=== PATIENT | female | born 1950 | race Caucasian/White ===

== ENCOUNTER 2018-12-03 16:10 | Inpatient (IN) ==
[2018-12-03] MEDS ORDERED: POTASSIUM CHLORIDE 20 MEQ/15 ML UDC PO STA (16:48)
[2018-12-03] MEDS ORDERED: POTASSIUM CHLORIDE / WTR 10 MEQ/100 ML PLCT IV ONE (16:48)
[2018-12-03] MEDS ORDERED: SODIUM CHLORIDE 0.9% 1000ML 1,000 ML IV ONE (16:48)
[2018-12-03] MEDS ORDERED: SODIUM CHLORIDE 0.9% 1000ML 1,000 ML IV SCH ×2 (17:00→21:00)
[2018-12-03 17:02] LABS: Basophils # (auto) 0.02 K/uL (0-0.2); Basophils % (auto) 0.2 %; Eosinophils # (auto) 0.15 K/uL (0-0.5); Eosinophils % (auto) 1.7 %; Hematocrit (blood only) 30.8 % (37-47); Hemoglobin 10.4 g/dL (12.0-16.0); Immature Granulocytes # (auto) 0.21 K/uL (0.00-0.02); Immature Granulocytes % (auto) 2.4 %; Lymphocytes # (auto) 1.58 K/uL (1.2-3.4); Mean Corpuscular Hgb Conc 33.8 g/dL (32-36); Mean Corpuscular Volume 84.6 fL (80-100); Mean Platelet Volume 9.2 fL (7.4-10.4); Monocytes # (auto) 1.18 K/uL (0.11-0.59); Monocytes % (auto) 13.5 %; Neutrophils # (auto) 5.62 K/uL (1.4-6.5); Neutrophils % (auto) 64.2 %; Platelet Count 401 K/uL (130-400); RDW Coefficient of Variation 13.2 % (11.5-14.5); RDW Standard Deviation 40.4 fL (36.4-46.3); Red Blood Count 3.64 M/uL (4.2-5.4); White Blood Count 8.76 K/uL (4.8-10.8)
[2018-12-03 17:28] LABS: Alanine Aminotransferase 25 U/L (12-78); Albumin Globulin Ratio 0.9 (0.9-2); Albumin Level 3.3 gm/dl (3.4-5.0); Alkaline Phosphatase 64 U/L (45-117); Aspartate Aminotransferase 18 U/L (15-37); BUN Creatinine Ratio 11.9 (10-20); Bilirubin,Total 0.7 mg/dl (0.2-1); Blood Urea Nitrogen 6 mg/dl (7-18); Calcium 8.7 mg/dl (8.5-10.1); Carbon Dioxide 30 mmol/L (21-32); Chloride 98 mmol/L (98-107); Est GFR (African American) 113.7; Est GFR (Non-African American) 98.1; Globulin 3.7 gm/dl (2.5-4.0); Glucose 139 mg/dl (70-99); Magnesium 1.7 mg/dl (1.8-2.4); Potassium 2.1 mmol/L (3.5-5.1); Sodium 137 mmol/L (136-145)
[2018-12-03] MEDS ORDERED: MAGNESIUM SULFATE / D5W 1 GM/100 ML BAG IV ONE ×2 (17:32→21:00)
--- NOTE | 2018-12-03 18:49 | History & Physical Report ---
Date of Service December 03, 2018 Assessment & Plan (1) Hypokalemia: Pt presented for hypokalemia. s/p hemicolectomy, ileocolostomy on 11/26/18. Reports poor oral intake, 2-3 loose stools daily. Reports continued fatigue, weakness and had outpatient labs today showing K: 2.4 In ER vitals stable. EKG: sinus rhythm, rate 81, ST depression, U waves. No leukocytosis. 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 Pathology still pending. Has had loose BMs since surgery. May be secondary to recent procedure or resuming metformin -C-diff pending -Monitor electrolytes -Oxycodone, Tylenol prn pain -Low fiber diet (4) Diabetes mellitus, type 2: A1c: 6.1 on 09/12/18 -Hold metformin -Novolog sliding scale per protocol (5) Hypertension: Stable -Continue amlodipine, atenolol -Hold lisinopril and re-evaluate tomorrow (6) Hyperlipidemia: -Continue atorvastatin (7) Sleep apnea: -CPAP HS (8) Depression: -Continue citalopram (9) Interstitial lung disease: No SOB -Pt not taking asmanex at home -Continue albuterol prn (10) DVT prophylaxis: -Lovenox 40 SQ Pt on Lovenox 40 SQ for 28 days post op Full Code Follows with Dr Susana Hollins for routine care Pt was seen and care coordinated with Dr Carroll. See addendum History of Present Illness Chief Complaint: Abnormal labs Primary Care Provider: Susana Hollins, Pt is 68 y/o F with PMH HTN, HLD, DM II, depression, ZAHRA, interstitial lung disease, presented to ER for hypokalemia. 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 Pt was discharged home on 11/30/18. She reports has had continued fatigue, insomnia, weakness, and abdominal discomfort. Had f/u today with PCP and pt was referred to ER after outpatient labs today showed K: 2.4. Pt was discharged home on low fiber diet. She admits to poor oral intake and only eating small amounts of pudding, ice cream. States yesterday had poor fluid intake and had decreased urination. Reports has used oxycodone once for abdominal pain, otherwise is using Tylenol with some relief of abdominal pain. Denies vomiting. Since procedure having loose stools. Yesterday 2 loose stools, today 2-3 loose stools. Denies hematochezia. Denies fever/chills, diaphoresis, MARTINEZ, dizziness, syncope, vision changes, neck pain, CP, SOB, orthopnea, palpitations, cough, sore throat, choking, otalgia, rhinorrhea, paresthesias, weakness, extremity weakness, extremity edema, rashes, dysuria, hematuria. Allergies Allergy/AdvReac Type Severity Reaction Status Date / Time Sulfa (Sulfonamide Allergy Severe SOB, Verified 12/03/18 17:55 Antibiotics) Systemic rash Home Medications Home Medications Medication Instructions Recorded Confirmed Type Asmanex Twisthaler 2 inh INHALATION QAM 10/25/18 12/03/18 History albuterol sulfate [Ventolin HFA] 1 puff INHALATION Q6H PRN 10/25/18 12/03/18 History amlodipine 5 mg PO QAM 10/25/18 12/03/18 History atenolol 25 mg PO DAILY 10/25/18 12/03/18 History atorvastatin 20 mg PO HS 10/25/18 12/03/18 History citalopram 40 mg PO QAM 10/25/18 12/03/18 History lisinopril 2.5 mg PO HS 10/25/18 12/03/18 History metformin 500 mg PO BID 10/25/18 12/03/18 History montelukast 10 mg PO QAM PRN 10/25/18 12/03/18 History nitroglycerin [Nitrostat] 0.3 mg SUBLINGUAL UD PRN 10/25/18 12/03/18 History trazodone 25 mg PO HS PRN 10/25/18 12/03/18 History albuterol sulfate 2.5 mg INHALATION Q4 PRN 12/03/18 12/03/18 History enoxaparin [Lovenox] 40 mg SUBCUT DAILY 12/03/18 12/03/18 History oxycodone [Roxicodone] 5 mg PO Q4 PRN 12/03/18 12/03/18 History prednisolone acetate [Pred Forte] 1 drp OPB PM 12/03/18 12/03/18 History Past Med/Surg History Medical History Sleep apnea (Chronic) cpap Stable angina (Chronic) PVC's (premature ventricular contractions) (Chronic) Mitral valve prolapse (Chronic) Hyperlipidemia (Chronic) Hypertension (Chronic) Depression (Chronic) Anxiety (Chronic) Panic attacks (Chronic) Diabetes mellitus, type 2 (Chronic) History of colon polyps (Chronic) Interstitial lung disease (Chronic) Surgical History History of hemicolectomy (Chronic) 11/26/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 History of colonoscopy (Chronic) Family History Grandmother (Maternal) Family hx of colon cancer Father Family history of diabetes mellitus Social History Preferred Language: Uzbek Communication Ability: Effective Beliefs That Will Affect Care: None Current Living Situation: Spouse and Family Current Living Situation Comment: Lives with and special needs daughter Feels Safe at Home: Yes Smoking Status: Never smoker Second Hand Exposure: Yes (father smoked) Hx Alcohol Use: No Hx Substance Use: No Review of Systems Review of Systems: All systems reviewed & are unremarkable except as noted in HPI & below Physical Exam Physical Exam: General: no distress, WDWN Head: normocephalic, atraumatic Eyes: PERRL, EOM's intact, conjunctiva non-injected, anicteric ENT: normal inspection external ears, nose, mucous membranes mildly dry Neck: supple, trachea midline Lungs: clear, no respiratory distress, no wheezing/rhonchi/rales CV: RRR, no murmur, no JVD, no pretibial edema Abd: +vertical midline surgical incision with regan in place without surrounding erythema, normal BS, soft, non-tender to light palpation Ext: no cyanosis, no calf tenderness Neuro: A&O x 3, no focal deficits noted, normal affect Skin: warm, dry Results & Data Vital Signs (Past 12 Hours) Vital Signs Temp Pulse Pulse Resp BP BP Pulse Ox 12/03/18 18:27 84 18 145/72 H 98 12/03/18 17:29 85 18 154/71 H 100 12/03/18 16:12 36.7 C 74 20 160/77 H 95 Laboratory Results Short CBC 12/03/18 Range/Units 16:38 WBC 8.76 (4.8-10.8) K/uL Hgb 10.4 L (12.0-16.0) g/dL Hct 30.8 L (37-47) % Plt Count 401 H (130-400) K/uL BMP 12/03/18 16:38 Sodium 137 Potassium 2.1 L* Chloride 98 Carbon Dioxide 30 BUN 6 L Creatinine 0.51 L Glucose 139 H Calcium 8.7 Liver Function 12/03/18 Range/Units 16:38 Total Bilirubin 0.7 (0.2-1) mg/dl AST 18 (15-37) U/L ALT 25 (12-78) U/L Alkaline Phosphatase 64 (45-117) U/L Albumin 3.3 L (3.4-5.0) gm/dl Supervising Physician Co-Signing Physician Notes Patient is a 68-year-old female with history of hypertension, interstitial lung disease and other problems presents with history of lower quadrant abdominal pain, decreased appetite, insomnia and diarrhea since after having right hemicolectomy with removal of terminal ileum, ileostomy 1 week ago at [facility]. Patient was noted to have severe hypokalemia, hypomagnesemia. She admits to getting IV antibiotics during recent hospitalization. No known history of C. difficile. She was noted to have EKG changes consistent with ST depression, U waves secondary to hypokalemia. Patient denies any chest pain, shortness of breath. on exam patient is moderately built and nourished, no apparent distress, normocephalic atraumatic, lungs are clear to auscultation, S1-S2, no murmur, abdomen is soft, surgical scar with regan noted, nontender, no guarding or rigidity, grossly no focal neurological deficits, and no pedal edema. Patient is admitted for management of hypokalemia, hypomagnesemia and ongoing diarrhea. Was on metformin for diabetes. Metformin likely contributing to diarrhea. Will hold metformin for now. Will check stool for C. difficile. Agree with magnesium, potassium supplements, IV fluids. We will repeat EKG in the morning. Will consider Lomotil if stool studies negative. I personally reviewed the record. Patient is interviewed and examined at bedside. Patient's care is coordinated with Haydee Gotti PA-C. Please refer to the documentation above for details of patient's presentation and for discussion of other issues.
--- NOTE | 2018-12-03 19:22 | Emergency Department Note ---
History of Present Illness General Chief complaint: Abnormal Labs/Diagnostic Testing Stated complaint: POTASSIUM IS 2.4 SHOULD BE 3.5 Time Seen by Provider: 12/03/18 16:17 History of Present Illness Maximum Pain Intensity: 6 Home Medications Home Medications Medication Instructions Recorded Confirmed Type Asmanex Twisthaler 2 inh INHALATION QAM 10/25/18 12/03/18 History albuterol sulfate [Ventolin HFA] 1 puff INHALATION Q6H PRN 10/25/18 12/03/18 History amlodipine 5 mg PO QAM 10/25/18 12/03/18 History atenolol 25 mg PO DAILY 10/25/18 12/03/18 History atorvastatin 20 mg PO HS 10/25/18 12/03/18 History citalopram 40 mg PO QAM 10/25/18 12/03/18 History lisinopril 2.5 mg PO HS 10/25/18 12/03/18 History metformin 500 mg PO BID 10/25/18 12/03/18 History montelukast 10 mg PO QAM PRN 10/25/18 12/03/18 History nitroglycerin [Nitrostat] 0.3 mg SUBLINGUAL UD PRN 10/25/18 12/03/18 History trazodone 25 mg PO HS PRN 10/25/18 12/03/18 History albuterol sulfate 2.5 mg INHALATION Q4 PRN 12/03/18 12/03/18 History enoxaparin [Lovenox] 40 mg SUBCUT DAILY 12/03/18 12/03/18 History oxycodone [Roxicodone] 5 mg PO Q4 PRN 12/03/18 12/03/18 History prednisolone acetate [Pred Forte] 1 drp OPB PM 12/03/18 12/03/18 History Allergies Allergy/AdvReac Type Severity Reaction Status Date / Time Sulfa (Sulfonamide Allergy Severe SOB, Verified 12/03/18 17:55 Antibiotics) Systemic rash Past Med/Surg History Medical History Sleep apnea (Chronic) cpap Stable angina (Chronic) PVC's (premature ventricular contractions) (Chronic) Mitral valve prolapse (Chronic) Hyperlipidemia (Chronic) Hypertension (Chronic) Depression (Chronic) Anxiety (Chronic) Panic attacks (Chronic) Diabetes mellitus, type 2 (Chronic) History of colon polyps (Chronic) Interstitial lung disease (Chronic) Surgical History History of hemicolectomy (Chronic) 11/26/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 History of colonoscopy (Chronic) Family History Grandmother (Maternal) Family hx of colon cancer Father Family history of diabetes mellitus Social History Preferred Language: Latvian Communication Ability: Effective Beliefs That Will Affect Care: None Current Living Situation: Spouse and Family Current Living Situation Comment: Lives with and special needs daughter Feels Safe at Home: Yes Smoking Status: Never smoker Second Hand Exposure: Yes (father smoked) Hx Alcohol Use: No Hx Substance Use: No Physical Exam Vital Signs Vital Signs - 24 hr 12/03/18 16:12 12/03/18 17:29 12/03/18 18:27 Temperature 36.7 C Temperature Source Oral Sepsis Recent Fever Within 48 Hours No Sepsis Action Taken by Nursing No Action Required Pulse Rate 74 Pulse Rate [Right Finger] 85 84 Respiratory Rate 20 18 18 Respiratory Effort / Characteristics Non-Labored Respiratory Depth Normal Blood Pressure 160/77 H Blood Pressure [Right Arm] 154/71 H 145/72 H Blood Pressure Mean 104 Blood Pressure Mean [Right Arm] 98 96 Pulse Oximetry 95 100 98 Oxygen Delivery Method Room Air Course Administered Medications Discontinued Medications Potassium Chloride (K Ronni / Wtr) 10 meq in 100 mls @ 100 mls/hr IV ONE ONE Stop: 12/03/18 17:47 Last Infusion: 12/03/18 18:00 Dose: 0 mls/hr Documented by: [id number] Admin: 12/03/18 17:04 Dose: 100 mls/hr Documented by: [id number] Sodium Chloride (Nss 1000ml) 1,000 mls @ 999 mls/hr IV .Q1H1M ONE Stop: 12/03/18 17:48 Last Infusion: 12/03/18 18:00 Dose: 0 mls/hr Documented by: [id number] Admin: 12/03/18 17:04 Dose: 999 mls/hr Documented by: [id number] Sodium Chloride (Nss 1000ml) 1,000 mls @ 999 mls/hr IV .Q1H1M SUMA Stop: 12/03/18 18:00 Last Infusion: 12/03/18 18:51 Dose: 0 mls/hr Documented by: [id number] Admin: 12/03/18 17:04 Dose: 999 mls/hr Documented by: [id number] Magnesium Sulfate/Dextrose (Magnesium Sulfate / D5w) 1 gm in 100 mls @ 100 mls/hr IV ONE ONE Stop: 12/03/18 18:31 Last Infusion: 12/03/18 18:51 Dose: 0 mls/hr Documented by: [id number] Admin: 12/03/18 17:59 Dose: 100 mls/hr Documented by: [id number] Potassium Chloride (Johanne Ciel Elix) 40 meq PO NOW STA Stop: 12/03/18 16:49 Last Admin: 12/03/18 17:04 Dose: 40 meq Documented by: [id number] Medical Decision Making Laboratory Data Result diagrams: 12/03/18 16:38 12/03/18 16:38 Lab Results 12/03/18 12/03/18 Range/Units 16:38 16:38 WBC 8.76 (4.8-10.8) K/uL RBC 3.64 L (4.2-5.4) M/uL Hgb 10.4 L (12.0-16.0) g/dL Hct 30.8 L (37-47) % MCV 84.6 (80-100) fL MCH 28.6 (25-34) pg MCHC 33.8 (32-36) g/dL RDW Std Deviation 40.4 (36.4-46.3) fL RDW Coeff of Radha 13.2 (11.5-14.5) % Plt Count 401 H (130-400) K/uL MPV 9.2 (7.4-10.4) fL Immature Gran % (Auto) 2.4 % Neut % (Auto) 64.2 % Lymph % (Auto) 18.0 % Jay % (Auto) 13.5 % Eos % (Auto) 1.7 % Baso % (Auto) 0.2 % Immature Gran # (Auto) 0.21 H (0.00-0.02) K/uL Neut # (Auto) 5.62 (1.4-6.5) K/uL Lymph # (Auto) 1.58 (1.2-3.4) K/uL Jay # (Auto) 1.18 H (0.11-0.59) K/uL Eos # (Auto) 0.15 (0-0.5) K/uL Baso # (Auto) 0.02 (0-0.2) K/uL Sodium 137 (136-145) mmol/L Potassium 2.1 L* (3.5-5.1) mmol/L Chloride 98 (98-107) mmol/L Carbon Dioxide 30 (21-32) mmol/L Anion Gap 9.0 (3-11) BUN 6 L (7-18) mg/dl Creatinine 0.51 L (0.6-1.2) mg/dl Est Cr Clr Drug Dosing Not Reportable Est GFR ( Amer) 113.7 Est GFR (Non-Af Amer) 98.1 BUN/Creatinine Ratio 11.9 (10-20) Glucose 139 H (70-99) mg/dl Calcium 8.7 (8.5-10.1) mg/dl Magnesium 1.7 L (1.8-2.4) mg/dl Total Bilirubin 0.7 (0.2-1) mg/dl AST 18 (15-37) U/L ALT 25 (12-78) U/L Alkaline Phosphatase 64 (45-117) U/L Total Protein 7.0 (6.4-8.2) gm/dl Albumin 3.3 L (3.4-5.0) gm/dl Globulin 3.7 (2.5-4.0) gm/dl Albumin/Globulin Ratio 0.9 (0.9-2) MDM Narrative Patient was seen and evaluated the bedside. The patient was referred from her primary care due to concern for low potassium. 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 Patient has complaints of poor appetite. The patient is a follow-up with her colorectal surgeon later in the month. The patient's blood work was repeated that showed low potassium. The patient does have some ST depressions throughout which is consistent with her hypokalemia. The patient was ordered IV and p.o. potassium as well as IV magnesium is to discuss the findings with the patient given the concern for hello with EKG changes I believe the patient would benefit from inpatient stay to ensure that her repletion was complete. This may be somewhat related to her poor appetite and postoperative nature. Patient does have some anemia but white count is within normal limits. The patient does have some mild abdominal discomfort but I believe this is related to the postop nature as the incision site looks clean dry and intact w ithout any signs of infection. I did speak the on-call hospitalist who agreed to further evaluate treat the patient. Patient was admitted to the medicine service. Discharge Plan Visit Data Chief Complaint: Abnormal Labs/Diagnostic Testing Stated Complaint: POTASSIUM IS 2.4 SHOULD BE 3.5 ED Provider: Baljeet Granados Prescriptions Prescriptions: No Action metformin 500 mg Tablet 500 mg PO BID RF: 0 atorvastatin 20 mg Tablet 20 mg PO HS RF: 0 citalopram 40 mg Tablet 40 mg PO QAM RF: 0 trazodone 50 mg Tablet 25 mg PO HS PRN (Reason: Insomnia) RF: 0 nitroglycerin [Nitrostat] 0.3 mg Tablet, Sublingual 0.3 mg sublingual UD PRN (Reason: Angina) RF: 0 atenolol 25 mg Tablet 25 mg PO DAILY RF: 0 amlodipine 5 mg Tablet 5 mg PO QAM RF: 0 montelukast 10 mg Tablet 10 mg PO QAM PRN (Reason: Allergy Symptoms) RF: 0 albuterol sulfate [Ventolin HFA] 90 mcg/actuation Hfa Aerosol Inhaler 1 puff INHALATION Q6H PRN (Reason: Shortness Of Breath) RF: 0 lisinopril 2.5 mg Tablet 2.5 mg PO HS RF: 0 Asmanex Twisthaler 110 mcg (30 doses) Aerosol Powdr Breath Activated 2 inh INHALATION QAM RF: 0 albuterol sulfate 2.5 mg /3 mL (0.083 %) Solution For Nebulization 2.5 mg INHALATION Q4 PRN (Reason: cough/sob) RF: 0 prednisolone acetate [Pred Forte] 1 % drops,suspension 1 drp OPB PM RF: 0 oxycodone [Roxicodone] 5 mg tablet 5 mg PO Q4 PRN (Reason: Pain) RF: 0 enoxaparin [Lovenox] 40 mg/0.4 mL syringe 40 mg subcut DAILY RF: 0
[2018-12-03] MEDS ORDERED: NITROGLYCERIN SL 0.4 MG/TAB TAB SL PRN (20:34)
[2018-12-03] MEDS ORDERED: GLUCOSE 40% GEL 15 GM TUBE PO PRN (20:34)
[2018-12-03] MEDS ORDERED: ALBUTEROL HFA 8 GM INHALER INH PRN (20:34)
[2018-12-03] MEDS ORDERED: TRAZODONE HCL 50 MG TAB PO PRN (20:34)
[2018-12-03] MEDS ORDERED: DEXTROSE 50% 50 ML SYRINGE IV PRN (20:34)
[2018-12-03] MEDS ORDERED: OXYCODONE HCL IR 5 MG TAB (IMMEDIATE RELEASE) PO PRN (20:34)
[2018-12-03] MEDS ORDERED: CARBOHYDRATES FOR HYPOGLYCEMIA PO PRN (20:34)
[2018-12-03] MEDS ORDERED: GLUCOSE 10 TABS/TUBE PO PRN (20:34)
[2018-12-03] MEDS ORDERED: GLUCAGON FOR INJ 1 MG VIAL SQ PRN (20:34)
[2018-12-03] MEDS ORDERED: MONTELUKAST SODIUM 10 MG TABLET PO PRN (20:34)
[2018-12-03] MEDS: POTASSIUM CHLORIDE / WTR 10 MEQ/100 ML PLCT IV SCH ×3 (21:07→23:43)
[2018-12-03] MEDS: ATORVASTATIN 20 MG TAB PO SCH (21:17)
[2018-12-03] MEDS: INSULIN ASPART 100 UNITS/ML 3 ML PEN SC SCH (21:17)
[2018-12-03] MEDS: prednisoLONE acetate 1% OP SUSP 5 ML BTL OPB SCH (21:17)
[2018-12-03 21:42] LABS: INR 1.1 (0.9-1.1); Prothrombin Time 11.4 Seconds (9.0-12.0)
[2018-12-03] MEDS: ACETAMINOPHEN 325 MG TAB PO PRN (21:53)
[2018-12-03 23:03] LABS: BUN Creatinine Ratio 7.2 (10-20); Calcium 7.7 mg/dl (8.5-10.1); Creatinine Clr Calc Pharmacy 128.7 ml/min; Est GFR (African American) 120.3; Est GFR (Non-African American) 103.8; Potassium 2.9 mmol/L (3.5-5.1)
[2018-12-04 05:51] LABS: Hematocrit (blood only) 30.4 % (37-47); Hemoglobin 10.3 g/dL (12.0-16.0); Mean Corpuscular Hgb Conc 33.9 g/dL (32-36); Mean Corpuscular Volume 87.6 fL (80-100); Mean Platelet Volume 9.1 fL (7.4-10.4); Platelet Count 419 K/uL (130-400); RDW Coefficient of Variation 13.7 % (11.5-14.5); RDW Standard Deviation 43.6 fL (36.4-46.3); Red Blood Count 3.47 M/uL (4.2-5.4); White Blood Count 8.05 K/uL (4.8-10.8)
[2018-12-04 06:22] LABS: Calcium 8.6 mg/dl (8.5-10.1); Creatinine Clr Calc Pharmacy 141.8 ml/min; Est GFR (African American) 124.2; Est GFR (Non-African American) 107.2; Magnesium 2.2 mg/dl (1.8-2.4); Phosphorus 3.3 mg/dl (2.5-4.9); Potassium 2.7 mmol/L (3.5-5.1)
[2018-12-04] MEDS ORDERED: POTASSIUM CHLORIDE 20 MEQ TABCR PO STA ×2 (07:55→16:00)
[2018-12-04] MEDS: ATENOLOL 25 MG TABLET PO SCH (08:02)
[2018-12-04] MEDS: ENOXAPARIN INJ 40 MG/0.4 ML SYR SQ SCH (08:02)
[2018-12-04] MEDS: AMLODIPINE BESYLATE 5 MG TAB PO SCH (08:02)
[2018-12-04] MEDS: CITALOPRAM 40 MG TAB PO SCH (08:03)
[2018-12-04] MEDS: INSULIN ASPART 100 UNITS/ML 3 ML PEN SC SCH ×4 (08:04→20:49)
[2018-12-04] MEDS: POTASSIUM CHLORIDE / WTR 10 MEQ/100 ML PLCT IV SCH ×3 (08:10→10:19)
[2018-12-04] MEDS: ACETAMINOPHEN 325 MG TAB PO PRN ×2 (08:24→16:04)
[2018-12-04 14:05] LABS: BUN Creatinine Ratio 12.4 (10-20); Calcium 8.4 mg/dl (8.5-10.1); Creatinine Clr Calc Pharmacy 120.1 ml/min; Est GFR (African American) 117.6; Est GFR (Non-African American) 101.5; Potassium 3.2 mmol/L (3.5-5.1)
[2018-12-04 14:14] LABS: Phosphorus 3.1 mg/dl (2.5-4.9)
[2018-12-04] MEDS ORDERED: POTASSIUM CHLORIDE / WTR 10 MEQ/100 ML PLCT IV ONE (16:15)
[2018-12-04] MEDS ORDERED: CALCIUM CARBONATE 500 MG CHEWABLE TAB PO STA (17:44)
--- NOTE | 2018-12-04 18:47 | Emergency Department Note ---
Entered by Keturah Liu acting as a scribe for History of Present Illness General Chief complaint: Abnormal Labs/Diagnostic Testing Stated complaint: POTASSIUM IS 2.4 SHOULD BE 3.5 Time Seen by Provider: 12/03/18 16:17 Source: patient History of Present Illness Provider complaint: weakness Onset (ago): hour(s) 6 Pain Consistency: + other (episode) Maximum Pain Intensity: 6 Quality: + other (weakness) Associated symptoms: + other (unstable on feet, cannot sleep, low fiber diet) The patient is a 68 year old white female w/ PMHx of HTN, HLD, GERD, diabetes, hypokalemia, hypomagnesemia, DVT and appendectomy who presents to the ED w/ CC of an episode of weakness beginning 6 hours ago. The patient states she saw her PCP and they found abnormally low potassium levels, so they sent her to the ED. The patient notes that she is unstable on her feet and could not sleep last night. The patient also notes that she is trying a low fiber diet. Home Medications Home Medications Medication Instructions Recorded Confirmed Type Asmanex Twisthaler 2 inh INHALATION QAM 10/25/18 12/03/18 History albuterol sulfate [Ventolin HFA] 1 puff INHALATION Q6H PRN 10/25/18 12/03/18 History amlodipine 5 mg PO QAM 10/25/18 12/03/18 History atenolol 25 mg PO DAILY 10/25/18 12/03/18 History atorvastatin 20 mg PO HS 10/25/18 12/03/18 History citalopram 40 mg PO QAM 10/25/18 12/03/18 History lisinopril 2.5 mg PO HS 10/25/18 12/03/18 History metformin 500 mg PO BID 10/25/18 12/03/18 History montelukast 10 mg PO QAM PRN 10/25/18 12/03/18 History nitroglycerin [Nitrostat] 0.3 mg SUBLINGUAL UD PRN 10/25/18 12/03/18 History trazodone 25 mg PO HS PRN 10/25/18 12/03/18 History albuterol sulfate 2.5 mg INHALATION Q4 PRN 12/03/18 12/03/18 History enoxaparin [Lovenox] 40 mg SUBCUT DAILY 12/03/18 12/03/18 History oxycodone [Roxicodone] 5 mg PO Q4 PRN 12/03/18 12/03/18 History prednisolone acetate [Pred Forte] 1 drp OPB PM 12/03/18 12/03/18 History Allergies Allergy/AdvReac Type Severity Reaction Status Date / Time Sulfa (Sulfonamide Allergy Severe SOB, Verified 12/03/18 17:55 Antibiotics) Systemic rash Past Med/Surg History Medical History Sleep apnea (Chronic) cpap Stable angina (Chronic) PVC's (premature ventricular contractions) (Chronic) Mitral valve prolapse (Chronic) Hyperlipidemia (Chronic) Hypertension (Chronic) Depression (Chronic) Anxiety (Chronic) Panic attacks (Chronic) Diabetes mellitus, type 2 (Chronic) History of colon polyps (Chronic) Interstitial lung disease (Chronic) Surgical History History of hemicolectomy (Chronic) 11/26/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 History of colonoscopy (Chronic) Family History Grandmother (Maternal) Family hx of colon cancer Father Family history of diabetes mellitus Social History Preferred Language: Bengali Communication Ability: Effective Spring Bender Required: No Beliefs That Will Affect Care: None Current Living Situation: Spouse Current Living Situation Comment: Lives with and special needs daughter Other Information That Helps Us Care for You: No Feels Safe at Home: Yes Safety Concerns: Feels Safe At This Time Smoking Status: Never smoker Second Hand Exposure: Yes (father smoked) Hx Alcohol Use: No Hx Substance Use: No Review of Systems See HPI for pertinent positives & negatives. and A total of 10 systems reviewed and were otherwise negative Physical Exam Vital Signs Vital Signs - 24 hr 12/03/18 16:12 12/03/18 17:29 12/03/18 18:27 Temperature 36.7 C Temperature Source Oral Sepsis Recent Fever Within 48 Hours No Sepsis Action Taken by Nursing No Action Required Pulse Rate 74 Pulse Rate [Right Finger] 85 84 Respiratory Rate 20 18 18 Respiratory Effort / Characteristics Non-Labored Respiratory Depth Normal Blood Pressure 160/77 H Blood Pressure [Right Arm] 154/71 H 145/72 H Blood Pressure Mean 104 Blood Pressure Mean [Right Arm] 98 96 Pulse Oximetry 95 100 98 Oxygen Delivery Method Room Air GENERAL: Well appearing, well nourished, NAD, non-toxic. EYE EXAM: Normal conjunctiva. PERRL, no anisocoria and EOM's grossly intact w/o pain. OROPHARYNX: Moist mucous membranes. Grossly normal dentition. NECK: Supple, no nuchal rigidity, no adenopathy, non-tender. No signs of meningismus. LUNGS: Clear to auscultation. Normal chest wall mechanics. HEART: NSR, no MRG. ABDOMEN: Mild abdominal discomfort. Large midline stapled incision, no purulent drainage or redness near incision sight. Abdomen soft, non-tender, normo-active bowel sounds, no masses, no rebound or guarding. BACK: No CVA TTP. SKIN: No rashes and no bruising. UPPER EXTREMITIES: Upper extremities are grossly normal. LOWER EXTREMITIES: No pitting edema. No calf pain. NEURO EXAM: A&O x3, cranial nerves II-XII grossly intact, normal speech, moves all 4 extremities on command w/o issue. Course 1638: Past medical records reviewed. The patient was evaluated in room A9. A complete history and physical exam was performed. 1740: I discussed the patient's case with Dr. Reyes [facility] Hospitalist. He will evaluate the patient for further management. Consultations Consultation #1: I discussed the patient's case with Dr. Reyes [facility] Hospitalist. He will evaluate the patient for further management. Time: 17:40 Administered Medications Acetaminophen (Tylenol) 650 mg PO Q4H PRN PRN Reason: Pain or Fever Stop: 01/02/19 20:33 Last Admin: 12/04/18 16:04 Dose: 650 mg Documented by: [id number] Admin: 12/04/18 08:24 Dose: 650 mg Documented by: [id number] Admin: 12/03/18 21:53 Dose: 650 mg Documented by: [id number] Amlodipine Besylate (Norvasc) 5 mg PO QAM [facility] Stop: 01/03/19 08:59 Last Admin: 12/04/18 08:02 Dose: 5 mg Documented by: [id number] Atenolol (Tenormin) 25 mg PO DAILY SUMA Stop: 01/03/19 08:59 Last Admin: 12/04/18 08:02 Dose: 25 mg Documented by: [id number] Atorvastatin Calcium (Lipitor) 20 mg PO HS [facility] Stop: 01/02/19 20:59 Last Admin: 12/03/18 21:17 Dose: 20 mg Documented by: [id number] Citalopram Hydrobromide (Celexa) 40 mg PO QAM [facility] Stop: 01/03/19 08:59 Last Admin: 12/04/18 08:03 Dose: 40 mg Documented by: [id number] Enoxaparin Sodium (Lovenox) 40 mg SQ Q24H SUMA Stop: 01/03/19 08:59 Last Admin: 12/04/18 08:02 Dose: 40 mg Documented by: [id number] Insulin Aspart (Novolog Flexpen) 0 units SC ACHS SUMA Stop: 01/02/19 20:59 Last Admin: 12/04/18 17:27 Dose: Not Given Documented by: [id number] Cosigned by: [id number] Admin: 12/04/18 12:20 Dose: 5 units Documented by: [id number] Cosigned by: [id number] Admin: 12/04/18 08:04 Dose: 2 units Documented by: [id number] Cosigned by: [id number] Admin: 12/03/18 21:17 Dose: Not Given Documented by: [id number] Cosigned by: [id number] Prednisolone Acetate (Pred Forte 1%) 1 drops OPB PM SUMA Stop: 01/02/19 20:59 Last Admin: 12/03/18 21:17 Dose: 1 drops Documented by: [id number] Discontinued Medications Calcium Carbonate (Tums) 500 mg PO ONCE STA Stop: 12/04/18 17:45 Last Admin: 12/04/18 18:27 Dose: 500 mg Documented by: [id number] Potassium Chloride (K Ronni / Wtr) 10 meq in 100 mls @ 100 mls/hr IV ONE ONE Stop: 12/03/18 17:47 Last Infusion: 12/03/18 18:00 Dose: 0 mls/hr Documented by: [id number] Admin: 12/03/18 17:04 Dose: 100 mls/hr Documented by: [id number] Sodium Chloride (Nss 1000ml) 1,000 mls @ 999 mls/hr IV .Q1H1M ONE Stop: 12/03/18 17:48 Last Infusion: 12/03/18 18:00 Dose: 0 mls/hr Documented by: [id number] Admin: 12/03/18 17:04 Dose: 999 mls/hr Documented by: [id number] Sodium Chloride (Nss 1000ml) 1,000 mls @ 999 mls/hr IV .Q1H1M SUMA Stop: 12/03/18 18:00 Last Infusion: 12/03/18 18:51 Dose: 0 mls/hr Documented by: [id number] Admin: 12/03/18 17:04 Dose: 999 mls/hr Documented by: [id number] Magnesium Sulfate/Dextrose (Magnesium Sulfate / D5w) 1 gm in 100 mls @ 100 mls/hr IV ONE ONE Stop: 12/03/18 18:31 Last Infusion: 12/03/18 18:51 Dose: 0 mls/hr Documented by: [id number] Admin: 12/03/18 17:59 Dose: 100 mls/hr Documented by: [id number] Magnesium Sulfate/Dextrose (Magnesium Sulfate / D5w) 1 gm in 100 mls @ 100 mls/hr IV ONE ONE Stop: 12/03/18 21:59 Last Infusion: 12/03/18 22:14 Dose: 0 mls/hr Documented by: [id number] Admin: 12/03/18 21:12 Dose: 100 mls/hr Documented by: [id number] Sodium Chloride (Nss 1000ml) 1,000 mls @ 125 mls/hr IV .Q8H SUMA Stop: 12/04/18 04:59 Last Infusion: 12/04/18 06:12 Dose: 0 mls/hr Documented by: [id number] Admin: 12/03/18 21:06 Dose: 125 mls/hr Documented by: [id number] Potassium Chloride (K Ronni / Wtr) 10 meq in 100 mls @ 100 mls/hr IV Q1H SUMA Stop: 12/03/18 23:59 Last Infusion: 12/04/18 01:08 Dose: 0 mls/hr Documented by: [id number] Admin: 12/03/18 23:43 Dose: 100 mls/hr Documented by: [id number] Infusion: 12/03/18 23:15 Dose: 100 mls/hr Documented by: [id number] Admin: 12/03/18 22:15 Dose: 100 mls/hr Documented by: [id number] Infusion: 12/03/18 22:07 Dose: 100 mls/hr Documented by: [id number] Admin: 12/03/18 21:07 Dose: 100 mls/hr Documented by: [id number] Potassium Chloride (K Ronni / Wtr) 10 meq in 100 mls @ 100 mls/hr IV Q1H SUMA Stop: 12/04/18 11:14 Last Infusion: 12/04/18 11:20 Dose: 0 mls/hr Documented by: [id number] Admin: 12/04/18 10:19 Dose: 100 mls/hr Documented by: [id number] Infusion: 12/04/18 10:16 Dose: 100 mls/hr Documented by: [id number] Admin: 12/04/18 09:16 Dose: 100 mls/hr Documented by: [id number] Infusion: 12/04/18 09:10 Dose: 100 mls/hr Documented by: [id number] Admin: 12/04/18 08:10 Dose: 100 mls/hr Documented by: [id number] Potassium Chloride (K Ronni / Wtr) 10 meq in 100 mls @ 105 mls/hr IV ONE ONE Stop: 12/04/18 17:12 Last Infusion: 12/04/18 17:19 Dose: 105 mls/hr Documented by: [id number] Admin: 12/04/18 16:18 Dose: 105 mls/hr Documented by: [id number] Potassium Chloride (Johanne Ciel Elix) 40 meq PO NOW STA Stop: 12/03/18 16:49 Last Admin: 12/03/18 17:04 Dose: 40 meq Documented by: [id number] Potassium Chloride (Klor-Con M20) 40 meq PO NOW STA Stop: 12/04/18 07:56 Last Admin: 12/04/18 08:09 Dose: 40 meq Documented by: [id number] Potassium Chloride (Klor-Con M20) 40 meq PO NOW STA Stop: 12/04/18 16:01 Last Admin: 12/04/18 16:18 Dose: 40 meq Documented by: [id number] Medical Decision Making Medical Records Attestation: I reviewed the patient's medical records. Home Medications Current Medication List: was personally reviewed by me Laboratory Data Attestation: I reviewed the patient's lab results. Result diagrams: 12/04/18 05:22 12/04/18 13:29 Lab Results 12/03/18 12/03/18 12/03/18 Range/Units 16:38 16:38 16:38 WBC 8.76 (4.8-10.8) K/uL RBC 3.64 L (4.2-5.4) M/uL Hgb 10.4 L (12.0-16.0) g/dL Hct 30.8 L (37-47) % MCV 84.6 (80-100) fL MCH 28.6 (25-34) pg MCHC 33.8 (32-36) g/dL RDW Std Deviation 40.4 (36.4-46.3) fL RDW Coeff of Radha 13.2 (11.5-14.5) % Plt Count 401 H (130-400) K/uL MPV 9.2 (7.4-10.4) fL Immature Gran % (Auto) 2.4 % Neut % (Auto) 64.2 % Lymph % (Auto) 18.0 % Ralls % (Auto) 13.5 % Eos % (Auto) 1.7 % Baso % (Auto) 0.2 % Immature Gran # (Auto) 0.21 H (0.00-0.02) K/uL Neut # (Auto) 5.62 (1.4-6.5) K/uL Lymph # (Auto) 1.58 (1.2-3.4) K/uL Ralls # (Auto) 1.18 H (0.11-0.59) K/uL Eos # (Auto) 0.15 (0-0.5) K/uL Baso # (Auto) 0.02 (0-0.2) K/uL PT 11.4 (9.0-12.0) Seconds INR 1.1 (0.9-1.1) Sodium 137 (136-145) mmol/L Potassium 2.1 L* (3.5-5.1) mmol/L Chloride 98 (98-107) mmol/L Carbon Dioxide 30 (21-32) mmol/L Anion Gap 9.0 (3-11) BUN 6 L (7-18) mg/dl Creatinine 0.51 L (0.6-1.2) mg/dl Est Cr Clr Drug Dosing Not Reportable Est GFR ( Amer) 113.7 Est GFR (Non-Af Amer) 98.1 BUN/Creatinine Ratio 11.9 (10-20) Glucose 139 H (70-99) mg/dl Calcium 8.7 (8.5-10.1) mg/dl Magnesium 1.7 L (1.8-2.4) mg/dl Total Bilirubin 0.7 (0.2-1) mg/dl AST 18 (15-37) U/L ALT 25 (12-78) U/L Alkaline Phosphatase 64 (45-117) U/L Total Protein 7.0 (6.4-8.2) gm/dl Albumin 3.3 L (3.4-5.0) gm/dl Globulin 3.7 (2.5-4.0) gm/dl Albumin/Globulin Ratio 0.9 (0.9-2) ECG Data Attestation: I personally reviewed and interpreted this ECG as follows: Indication: weakness Rate (beats per minute): 81 Rhythm: normal sinus Findings: + other (normal axis, depressions anterolaterally) Blood Pressure Blood Pressure Findings: Elevated blood pressure Blood Pressure Disposition: further management by hospitalist [facility] Narrative The patient is a 68 year old white female w/ PMHx of HTN, HLD, GERD, diabetes, hypokalemia, hypomagnesemia, DVT and appendectomy who presents to the ED w/ CC of an episode of weakness beginning 6 hours ago. Differential diagnosis include dehydration, malabsorption, poor PO intake, potassium wasting, medication side effects. Patient was seen and evaluated the bedside. The patient did present with concern for weakness and was concerned about some low potassium. The patient did have a recent partial resection of the bowel due to concern for an appendiceal tumor. The biopsies are pending for pathology. The patient did mistry ve an outpatient potassium of 2.4. The patient did have blood work completed was ordered potassium. The patient's EKG did show evidence of diffuse ST depression which would be consistent with hypokalemia. Potassium was low as well as the mag which were ordered for IV and p.o. repletion. Patient was given IV fluids. Given the concern that she would not be able to improve her electrolyte levels in the emergency department within a reasonable timeframe I did discuss case with the on-call hospitalist agreed to further evaluate treat the patient. Patient was admitted to the medicine service. Impression & Plan Hypomagnesemia, Hypokalemia Critical Care Time Critical Care Time: Yes Total Critical Care Time: 43 I have personally spent 43 minutes of critical care time in the direct management of this patient. This includes bedside care, interpretation of diagnostic studies, and testing, discussion with consultants, patient, and famil y members, and other required patient management activities. This 43 minutes is in excess of all separately billable procedures. Discharge Plan Visit Data *Final* Discharge Date/Time: 12/03/18 19:24 Chief Complaint: Abnormal Labs/Diagnostic Testing Stated Complaint: POTASSIUM IS 2.4 SHOULD BE 3.5 ED Provider: Baljeet Granados Discharge Problem: Hypomagnesemia, Hypokalemia Patient Disposition: Admitted As Inpatient Discharge Instructions Interventions: ED Discharge Assessment Last Done: 12/03/18 19:24 The scribe's documentation has been prepared under my direction and personally reviewed by me in its entirety. I confirm that the note above accurately reflects all work, treatment, procedures, and medical decision making performed by me.
--- NOTE | 2018-12-04 18:55 | Hospitalist Progress Note ---
Date of Service December 04, 2018 Assessment & Plan (1) Hypokalemia: Pt presented for hypokalemia. s/p hemicolectomy, ileocolostomy on 11/26/18. Reports poor oral intake, 2-3 loose stools daily. Reports continued fatigue, weakness and had outpatient labs today showing K: 2.4 In ER vitals stable. EKG: sinus rhythm, rate 81, ST depression, U waves. No leukocytosis. K: 2.1 Hypokalemia secondary to poor oral intake, loose stools -serum potassium levels have improved from admission 2.1 to 3.2 as of last check lab on afternoon of 12/04/18 with oral and IV potassium supplements -additional oral potassium 40 meq given and IV supplement of 10 meq also now given -will continue to monitor potassium levels as inpatient and replace as needed (2) Hypomagnesemia: Hypomagnesemia secondary to poor oral intake, loose stools -Magnesium: 1.7 on admission with supplementation the hypomagnesemia now resolved (3) History of hemicolectomy: Hx appendiceal tumor and is s/p R hemicolectomy with removal terminal ileum, ileocolostomy on 11/26/18 at [facility] [place] Pathology still pending. Has had loose BMs since surgery. -C-difficile test negative -Monitor electrolytes -Low fiber diet -Oxycodone, Tylenol prn for pain control (4) Diabetes mellitus, type 2: A1c: 6.1 on 09/12/18 -Hold metformin -Novolog sliding scale per protocol (5) Hypertension: Stable -Continue amlodipine, atenolol -resume home dose lisinopril (6) Hyperlipidemia: -Continue atorvastatin (7) Sleep apnea: -CPAP HS (8) Depression: -Continue citalopram (9) Interstitial lung disease: No SOB -Pt not taking asmanex at home -Continue albuterol prn (10) DVT prophylaxis: -Lovenox 40 SQ Pt on Lovenox 40 SQ for 28 days post op Subjective Patient not in distress. no acute abdomen pain. no chest pain. no shortness of breath. no dizziness. no lightheadedness Physical Exam Constitutional: WD/WN, vitals as above Eyes: PERRL, conjunctivae normal, anicteric sclerae EOM intact bilaterally ENMT: external ear and nose normal, oropharynx normal Neck: trachea midline, no thyromegaly Respiratory: normal respiratory effort, lungs clear to auscultation Cardiovascular: Rate/Rhythm: regular rate and regular rhythm Gastrointestinal (Abdomen): soft, regan intact, bowel sounds present Musculoskeletal: Head/Neck/Chest: normocephalic and head atraumatic Neurologic: PERRL, EOMI, accommodation nl, no face palsy, no dysarthria CN's II-XI intact bilaterally Psychiatric: A+Ox3, euthymic affect Results & Data Vital Signs (Past 12 Hours) Vital Signs Temp Pulse Pulse Resp BP BP Pulse Ox 12/04/18 15:52 35.8 C L 67 18 125/69 98 12/04/18 11:53 37 C 66 16 124/68 96 12/04/18 08:00 79 12/04/18 07:21 36.6 C 73 18 160/80 H 96
[2018-12-04] MEDS: prednisoLONE acetate 1% OP SUSP 5 ML BTL OPB SCH (20:36)
[2018-12-04] MEDS: ATORVASTATIN 20 MG TAB PO SCH (20:36)
[2018-12-04] MEDS ORDERED: LISINOPRIL 2.5 MG TAB PO SCH (21:00)
[2018-12-05] MEDS: CITALOPRAM 40 MG TAB PO SCH (07:35)
[2018-12-05] MEDS: ATENOLOL 25 MG TABLET PO SCH (07:35)
[2018-12-05] MEDS: AMLODIPINE BESYLATE 5 MG TAB PO SCH (07:36)
[2018-12-05] MEDS: ENOXAPARIN INJ 40 MG/0.4 ML SYR SQ SCH (07:36)
[2018-12-05 07:43] LABS: Albumin Globulin Ratio 0.7 (0.9-2); Albumin Level 2.8 gm/dl (3.4-5.0); BUN Creatinine Ratio 19.9 (10-20); Bilirubin,Total 0.4 mg/dl (0.2-1); Calcium 8.9 mg/dl (8.5-10.1); Creatinine Clr Calc Pharmacy 118.6 ml/min; Est GFR (African American) 117.6; Est GFR (Non-African American) 101.5; Globulin 3.8 gm/dl (2.5-4.0); Magnesium 2.1 mg/dl (1.8-2.4); Potassium 3.8 mmol/L (3.5-5.1); Total Protein 6.6 gm/dl (6.4-8.2)
[2018-12-05] MEDS: INSULIN ASPART 100 UNITS/ML 3 ML PEN SC SCH ×2 (08:31→12:21)
--- NOTE | 2018-12-05 09:58 | Hospitalist Progress Note ---
Date of Service December 05, 2018 Assessment & Plan (1) Hypokalemia: Pt presented for hypokalemia. s/p hemicolectomy, ileocolostomy on 11/26/18. Reports poor oral intake, 2-3 loose stools daily. Reports continued fatigue, weakness and had outpatient labs today showing K: 2.4 In ER vitals stable. EKG: sinus rhythm, rate 81, ST depression, U waves. No leukocytosis. K: 2.1 Hypokalemia secondary to poor oral intake, loose stools -serum potassium levels have improved from admission 2.1 to 3.2 as of lab on afternoon of 12/04/18 with oral and IV potassium supplements; additional oral potassium and IV supplements were given on 12/04/18 -as of 12/05/18 AM serum potassium is 4. -Patient is discharged with 10 day prescription of potassium 10 meq daily and magnesium oxide 400 mg daily. Patient should follow up with primary care doctor and have electrolytes rechecked to see any further adjustments of supplements based on serum potassium levels and serum magnesium levels Patient has follow up appointments for 12/12/2018 10:15 PM Provider Susana Hollins DO Department [facility] 01/10/2019 2:10 PM Provider Susana Hollins DO [facility] (2) Hypomagnesemia: Hypomagnesemia secondary to poor oral intake, loose stools -Magnesium: 1.7 on admission with supplementation the hypomagnesemia now resolved -Patient is discharged with 10 day prescription of potassium 10 meq daily and magnesium oxide 400 mg daily. Patient should follow up with primary care doctor and have electrolytes rechecked to see any further adjustments of supplements based on serum potassium levels and serum magnesium levels (3) History of hemicolectomy: Hx appendiceal tumor and is s/p R hemicolectomy with removal terminal ileum, [place] [facility] [place]ology still pending. Has had loose BMs since surgery. -C-difficile test negative -Low fiber diet -12/06/2018 3:15 PM Provider Douglas Jarvis MD Department General Surgery, [facility] (4) Diabetes mellitus, type 2: Type 2 diabetes mellitus without halfway current use of insulin A1c: 6.1 on 09/12/18 -Hold metformin while inpatient;-Novolog sliding scale per protocol while inpatient -Patient may resume home dose metformin on discharge (5) Hypertension: Essential Hypertension -Continue amlodipine, atenolol -continue home dose lisinopril (6) Hyperlipidemia: -Continue atorvastatin (7) Sleep apnea: -CPAP HS (8) Depression: -Continue citalopram (9) Interstitial lung disease: No SOB -Pt not taking asmanex at home -Continue albuterol prn (10) DVT prophylaxis: -Lovenox 40 SQ Pt on Lovenox 40 SQ for 28 days post op Discharge Diagnosis Hypokalemia, Hypomagnesemia, Type 2 diabetes mellitus without halfway current use of insulin, essential hypertension Subjective Patient breathing on the CPAP. No respiratory distress. AM labs of adequate potassium levels of 3.8. no abdomen pain. no vomiting. no chest pain. no lightheadedness. no dizziness Physical Exam Constitutional: WD/WN, vitals as above Eyes: PERRL, conjunctivae normal, anicteric sclerae EOM intact bilaterally ENMT: external ear and nose normal, oropharynx normal Neck: trachea midline, no thyromegaly Respiratory: normal respiratory effort, lungs clear to auscultation Cardiovascular: Rate/Rhythm: regular rate and regular rhythm Gastrointestinal (Abdomen): Percussion/Palpation: abdomen soft (bowel sounds present, regan intact) Musculoskeletal: Head/Neck/Chest: normocephalic and head atraumatic Neurologic: PERRL, EOMI, accommodation nl, no face palsy, no dysarthria CN's II-XI intact bilaterally Psychiatric: A+Ox3, euthymic affect Results & Data Vital Signs (Past 12 Hours) Vital Signs Temp Pulse Pulse Resp BP BP Pulse Ox 12/05/18 08:00 62 12/05/18 07:43 72 20 148/77 H 99 12/05/18 04:00 37.0 C 74 20 138/77 98 12/04/18 23:59 36.4 C L 70 20 142/69 H 95 12/04/18 23:35 69
--- NOTE | 2018-12-05 10:03 | Discharge Summary ---
Date of Service December 05, 2018 Admission HPI Per Admitting Provider Pt is 68 y/o F with PMH HTN, HLD, DM II, depression, ZAHRA, interstitial lung disease, presented to ER for hypokalemia. 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 Pt was discharged home on 11/30/18. She reports has had continued fatigue, insomnia, weakness, and abdominal discomfort. Had f/u today with PCP and pt was referred to ER after outpatient labs today showed K: 2.4. Pt was discharged home on low fiber diet. She admits to poor oral intake and only eating small amounts of pudding, ice cream. States yesterday had poor fluid intake and had decreased urination. Reports has used oxycodone once for abdominal pain, otherwise is using Tylenol with some relief of abdominal pain. Denies vomiting. Since procedure having loose stools. Yesterday 2 loose stools, today 2-3 loose stools. Denies hematochezia. Denies fever/chills, diaphoresis, MARTINEZ, dizziness, syncope, vision changes, neck pain, CP, SOB, orthopnea, palpitations, cough, sore throat, choking, otalgia, rhinorrhea, paresthesias, weakness, extremity weakness, extremity edema, rashes, dysuria, hematuria. Admission Exam Per Admitting Provider General: no distress, WDWN Head: normocephalic, atraumatic Eyes: PERRL, EOM's intact, conjunctiva non-injected, anicteric ENT: normal inspection external ears, nose, mucous membranes mildly dry Neck: supple, trachea midline Lungs: clear, no respiratory distress, no wheezing/rhonchi/rales CV: RRR, no murmur, no JVD, no pretibial edema Abd: +vertical midline surgical incision with regan in place without surrounding erythema, normal BS, soft, non-tender to light palpation Ext: no cyanosis, no calf tenderness Neuro: A&O x 3, no focal deficits noted, normal affect Skin: warm, dry Principal Diagnosis Hypokalemia, Hypomagnesemia, Type 2 diabetes mellitus without fci current use of insulin, essential hypertension Discharge Exam Constitutional WD/WN, vitals as above Eyes PERRL, conjunctivae normal, anicteric sclerae EOM intact bilaterally ENMT external ear and nose normal, oropharynx normal Neck trachea midline, no thyromegaly Respiratory normal respiratory effort, lungs clear to auscultation Cardiovascular Rate/Rhythm: regular rate and regular rhythm Gastrointestinal (Abdomen) Percussion/Palpation: abdomen soft (bowel sounds present, regan intact) Musculoskeletal Head/Neck/Chest: normocephalic and head atraumatic Neurologic PERRL, EOMI, accommodation nl, no face palsy, no dysarthria CN's II-XI intact bilaterally Psychiatric A+Ox3, euthymic affect Discharge Data Allergies Allergy/AdvReac Type Severity Reaction Status Date / Time Sulfa (Sulfonamide Allergy Severe SOB, Verified 12/03/18 17:55 Antibiotics) Systemic rash Consultations 12/03/18 17:39 ED Decision to Admit Stat Hospital Course (1) Hypokalemia: Pt presented for hypokalemia. s/p hemicolectomy, ileocolostomy on 11/26/18. Reports poor oral intake, 2-3 loose stools daily. Reports continued fatigue, weakness and had outpatient labs today showing K: 2.4 In ER vitals stable. EKG: sinus rhythm, rate 81, ST depression, U waves. No leukocytosis. K: 2.1 Hypokalemia secondary to poor oral intake, loose stools -serum potassium levels have improved from admission 2.1 to 3.2 as of lab on afternoon of 12/04/18 with oral and IV potassium supplements; additional oral potassium and IV supplements were given on 12/04/18 -as of 12/05/18 AM serum potassium is 4. -Patient is discharged with 10 day prescription of potassium 10 meq daily and magnesium oxide 400 mg daily. Patient should follow up with primary care doctor and have electrolytes rechecked to see any further adjustments of supplements based on serum potassium levels and serum magnesium levels Patient has follow up appointments for 12/12/2018 10:15 PM Provider Susana Hollins DO [facility] 01/10/2019 2:10 PM Provider DO Benjamín Fernandes [facility] (2) Hypomagnesemia: Hypomagnesemia secondary to poor oral intake, loose stools -Magnesium: 1.7 on admission with supplementation the hypomagnesemia now resolved -Patient is discharged with 10 day prescription of potassium 10 meq daily and magnesium oxide 400 mg daily. 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 Pathology still pending. Has had loose BMs since surgery. -C-difficile test negative -Low fiber diet -12/06/2018 3:15 PM Provider Douglas Jarvis MD Department General Surgery, [facility] (4) Diabetes mellitus, type 2: Type 2 diabetes mellitus without fci current use of insulin A1c: 6.1 on 09/12/18 -Hold metformin while inpatient;-Novolog sliding scale per protocol while inpatient -Patient may resume home dose metformin on discharge (5) Hypertension: Essential Hypertension -Continue amlodipine, atenolol -continue home dose lisinopril (6) Hyperlipidemia: -Continue atorvastatin (7) Sleep apnea: -CPAP HS (8) Depression: -Continue citalopram (9) Interstitial lung disease: No SOB -Pt not taking asmanex at home -Continue albuterol prn (10) DVT prophylaxis: -Lovenox 40 SQ Pt on Lovenox 40 SQ for 28 days post op Discharge Diagnosis Hypokalemia, Hypomagnesemia, Type 2 diabetes mellitus without fci current use of insulin, essential hypertension Total Time Total Time Spent Total Time Spent (In Minutes): 40 minutes Total Time Includes: Examination of the Patient, Discharge Planning, Medication Reconciliation and Communication With Other Providers Discharge Plan Discharge Items Patient Disposition: Home - Self-Care Reason For Visit: HYPOKALEMIA Discharge Diagnosis: Hypokalemia, Hypomagnesemia, Type 2 diabetes mellitus without buttermaker current use of insulin, essential hypertension Condition: Fair Discharge Goals: Improve disease control Activity: Resume your previous activity Non-emergency contact: Primary Care Provider Call non-emergency contact if: you have any medication questions Follow-up/Referrals: Susana Hollins DO [Primary Care Provider] - Diet: Carb Consistent or DM2 and Low Fiber Addtl Provider Instructions: Patient is discharged with 10 day prescription of potassium 10 meq daily and magnesium oxide 400 mg daily. Patient should follow up with primary care doctor and have electrolytes rechecked to see any further adjustments of supplements based on serum potassium levels and serum magnesium levels Patient has follow up appointments for 12/06/2018 3:15 PM Provider Douglas Jarvis MD Department General Surgery, [facility] 12/12/2018 10:15 PM Provider Susana Hollins DO [facility] 01/10/2019 2:10 PM Provider Susana Hollins DO [facility] Prescriptions: New magnesium oxide 400 mg (241.3 mg magnesium) Tablet 400 mg PO QAM 10 Days Qty: 10 RF: 0 potassium chloride [Klor-Con M10] 10 mEq Tablet,Er Particles/Crystals 10 meq PO DAILY 10 Days Qty: 10 RF: 0 Continued metformin 500 mg Tablet 500 mg PO BID RF: 0 atorvastatin 20 mg Tablet 20 mg PO HS RF: 0 citalopram 40 mg Tablet 40 mg PO QAM RF: 0 trazodone 50 mg Tablet 25 mg PO HS PRN (Reason: Insomnia) RF: 0 nitroglycerin [Nitrostat] 0.3 mg Tablet, Sublingual 0.3 mg sublingual UD PRN (Reason: Angina) RF: 0 atenolol 25 mg Tablet 25 mg PO DAILY RF: 0 amlodipine 5 mg Tablet 5 mg PO QAM RF: 0 montelukast 10 mg Tablet 10 mg PO QAM PRN (Reason: Allergy Symptoms) RF: 0 albuterol sulfate [Ventolin HFA] 90 mcg/actuation Hfa Aerosol Inhaler 1 puff INHALATION Q6H PRN (Reason: Shortness Of Breath) RF: 0 lisinopril 2.5 mg Tablet 2.5 mg PO HS RF: 0 Asmanex Twisthaler 110 mcg (30 doses) Aerosol Powdr Breath Activated 2 inh INHALATION QAM RF: 0 albuterol sulfate 2.5 mg /3 mL (0.083 %) Solution For Nebulization 2.5 mg INHALATION Q4 PRN (Reason: cough/sob) RF: 0 prednisolone acetate [Pred Forte] 1 % drops,suspension 1 drp OPB PM RF: 0 oxycodone [Roxicodone] 5 mg tablet 5 mg PO Q4 PRN (Reason: Pain) RF: 0 enoxaparin [Lovenox] 40 mg/0.4 mL syringe 40 mg subcut DAILY RF: 0 Stand-Alone Forms: [facility] Discharge Orders: Discharge Order (Routine); Ordered 12/05/18 Ordered By: James Barger Admission Data Admit Date/Time: 12/03/18 18:37 Attending Provider: James Barger Admit Provider: Sergio Carroll Primary Care Provider: Susana Hollins Other Providers: Sergio Carroll Service: Telemetry Medical
[2018-12-06] MEDS ORDERED: POTASSIUM CHLORIDE 10 MEQ TABCR PO SCH (09:00)
[2018-12-06] MEDS ORDERED: MAGNESIUM OXIDE 400 MG TAB PO SCH (09:00)
== END 2018-12-05 14:10 | disposition home or self-care (01) | DRG 641 ==
LOC: ED 16:10 → SUATTDRO 18:37 → 2N 18:37

== ENCOUNTER 2024-02-21 11:07 | Inpatient (IN) ==
--- NOTE | 2024-02-21 11:33 | Emergency Department Note ---
Impression & Plan Sepsis, Renal colic, Hydronephrosis ED Provider Note NAME: JUANA ARCOS AGE: 73 SEX: F : 1950 ARRIVES VIA: Walk-In INFORMANT: Patient ED PROVIDER(S): Choco Kelly DO CHIEF COMPLAINT: Left flank pain HPI: Patient is a 73-year-old female with a past medical history of hypertension, hyperlipidemia, depression anxiety and GERD who presents ER for left flank pain. She notes this started last night. Has been getting worse. She is having trouble having bowel movements with last bowel movement 2 days ago. Denies any dysuria, urgency, or frequency. No other exacerbating or remitting factors. 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 ADDITIONAL HISTORY OBTAINED: Per HPI Chronic Medical/Social Conditions Affecting Care: Per HPI PAST MEDICAL HISTORY:See Below PAST SURGICAL HISTORY:See Below FAMILY HISTORY:See Below SOCIAL HISTORY:See Below HOME MEDICATIONS:See Below ALLERGIES:See Below VITALS:See Below PHYSICAL EXAMINATION: GENERAL: Sitting up in bed, alert, well appearing, well nourished, no distress, non-toxic EYE EXAM: normal conjunctiva. OROPHARYNX: no exudate, no erythema, lips, buccal mucosa, and tongue normal and mucous membranes are moist NECK: supple, no nuchal rigidity, no adenopathy, non-tender LUNGS: Clear to auscultation. Normal chest wall mechanics HEART: no murmurs, S1 normal and S2 normal ABDOMEN: abdomen soft, mild tenderness which is pinpoint in the left flank, normo-active bowel sounds, no masses, no rebound or guarding. BACK: Back is symmetrical on inspection and there is no deformity, no midline tenderness, no CVA tenderness. SKIN: no rashes and no bruising UPPER EXTREMITIES: upper extremities are grossly normal. LOWER EXTREMITIES: No pitting edema. NEURO EXAM: Normal sensorium, cranial nerves II-XII grossly intact, normal speech, no gross weakness of arms, no gross weakness of legs. MEDICAL DECISION MAKING: Patient is a 73-year-old female who presents to the ER for left flank pain. IV was established medicos obtained. UA is consistent with a UTI. CT abdomen pelvis confirms a retained stone in the ureter. Labs showed a mild leukocytosis of 12,000. No significant anemia. BMP was fairly unremarkable. Lactate at 3.4. LFTs bilirubin was unremarkable. Lipase was normal. Pro-Cristobal significantly elevated at 10. Patient was given IV fluids and IV antibiotics. Updated bedside. Consult with urology is in the hospitalist and patient was admitted for UTI. Consults/Care Managements Discussions: Per MDM Triage Nursing notes reviewed. Limited review of prior medical records performed Vital Signs: reviewed and remarkable for no significant abnormalities Differential diagnosis: Differential diagnoses includes but is not limited to gastritis, peptic ulcer disease, GERD, gallbladder disease, pancreatitis, small bowel obstruction, appendicitis, diverticulitis, hernia, urinary tract infection, torsion, perforation, trauma, infectious. ER treatment provided: See below Diagnostics interpreted by me include EKG and cardiac monitoring as listed below: -Cardiac Monitoring: An order was placed for continuous cardiac monitoring. The monitor shows a rate of 90 with sinus rhythm. -ECG: none -Laboratory studies:Interpreted by me as stated above in MDM and shown below. Imaging studies: Xrays: As interpreted by me:none CTs show: CT abdomen pelvis shows hydronephrosis CT Abdo pelvis per radiology as described above Procedures:none Critical Care: I have personally spent 32 minutes of critical care time in the direct management of this patient. This includes bedside care, interpretation of diagnostic studies, and testing, discussion with consultants, patient, and family members, and other required patient management activities. This 32 minutes is in excess of all separately billable procedures. Past Med/Surg History Problem List (Updated 02/21/24 @ 17:59 by Choco Kelly DO) Hydronephrosis (Acute) Renal colic (Acute) Sepsis (Acute) Calculus of proximal left ureter Encounter for pre-operative examination GERD (gastroesophageal reflux disease) Asthma Shortness of breath Sleep apnea (Chronic) cpap PVC's (premature ventricular contractions) (Chronic) Mitral valve prolapse (Chronic) Hyperlipidemia (Chronic) Hypertension (Chronic) Depression (Chronic) Anxiety (Chronic) Panic attacks (Chronic) REMOTE HX Diabetes mellitus, type 2 (Chronic) Medical History History of low potassium S/P BOWEL SX ( HOSPITALIZED [facility] FEW YRS AGO ) Fecal urgency REASON FOR UPCOMING PROCEDURE Diarrhea REASON FOR UPCOMING PROCEDURE History of anesthesia reaction UNSURE (PT NOT SURE DETAILS) /? 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 MOST RECENT 2014 / [facility] - NO STENTS REASON FOR HX CATHS: "FEELING BAD" ? ARRYTHMIAS , PT UNDER HIGH LEVEL OF STRESS, ? ANGINA Status post laparotomy History of hemicolectomy 11/26/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 History of wisdom tooth extraction History of left inguinal hernia repair History of section Family History Grandmother (Maternal) Family hx of colon cancer Father Family history of diabetes mellitus Sister Family history of colonic polyps Grandfather (Maternal) Family history of diabetes mellitus Social History Smoking Status: Current every day smoker Second Hand Exposure: Yes (HX); Do You Dip or Chew Tobacco: No; Hx Alcohol Use: No Hx Substance Use: No Preferred Language: Fijian Communication Ability: Effective Visual Impairment: No Limitations Hearing Ability: Normal Skin Care Specialist Required: No Beliefs That Will Affect Care: None and Restorationist Restorationist Beliefs: ANGLICAN marital status: Current Living Situation: Spouse and Family Current Living Situation Comment: AND DAUGHTER How many Children do You have: 1 Feels Safe at Home: Yes caffeine: No (uses decaf tea and coffee) Do you think of yourself as: straight/heterosexual Gender Identity: Female Assistive Devices: CPAP Allergies Allergies Allergy/AdvReac Type Severity Reaction Status Date / Time Sulfa (Sulfonamide Allergy Unknown SOB, Verified 11/20/23 09:37 Antibiotics) Systemic rash SULFATE WITH CHEAP FLIP FLOPS Allergy Unknown I BREAK OUT Uncoded 11/20/23 09:37 Home Meds Home Medications Medication Instructions Recorded Confirmed amlodipine 5 mg tablet 2.5 mg PO QAM 10/25/18 11/20/23 atorvastatin 20 mg tablet 20 mg PO HS 10/25/18 11/20/23 citalopram 40 mg tablet 40 mg PO QAM 10/25/18 11/20/23 lisinopril 2.5 mg tablet 2.5 mg PO HS 10/25/18 11/20/23 metformin 500 mg tablet 500 mg PO BID 10/25/18 11/20/23 trazodone 50 mg tablet 12.5 mg PO HS PRN Insomnia 10/25/18 11/20/23 prednisolone acetate 1 % eye 1 drp OPB QPM 12/03/18 11/20/23 drops,suspension (Pred Forte) Bifidobacterium infantis 4 mg 4 mg PO HS 08/09/20 11/20/23 capsule (Align) cholestyramine-aspartame 4 gram 4 g PO BID 03/17/22 11/20/23 oral powder (Cholestyramine Light) psyllium seed (sugar) oral powder 1 tsp PO UD PRN BOWEL REGULARITY 03/17/22 11/20/23 (Metamucil (sugar) oral powder) simethicone 80 mg chewable tablet 80 mg PO UD PRN GAS 03/17/22 11/20/23 famotidine 20 mg tablet 20 mg PO DAILY PRN 06/22/23 11/20/23 Previous Rx's Medication Instructions Recorded beclomethasone dipropionate 80 2 inh inhalation BID #10.6 grams 02/27/23 mcg/actuation HFA breath activated aerosol (Qvar RediHaler) albuterol sulfate 90 mcg/actuation 2 inh inhalation Q6H #8.5 grams 08/21/23 aerosol inhaler albuterol sulfate 2.5 mg/3 mL 2.5 mg (3 mL) inhalation Q4 PRN 08/28/23 (0.083 %) solution for nebulization cough/sob #180 mL nitroglycerin 0.4 mg sublingual 0.4 mg sublingual UD PRN Angina 11/20/23 tablet #30 tabs montelukast 10 mg tablet 10 mg PO QAM #90 tabs 02/18/24 Results & Data (ED) Vital Signs Vital Signs - 24 hr 02/21/24 11:10 02/21/24 11:29 02/21/24 13:00 Temperature 36.6 C Temperature Source Temporal Artery Scan Pulse Rate 88 Pulse Rate [Apical] Pulse Rate from SpO2 Sensor Pulse Rhythm [Apical] Pulse Strength [Apical] Respiratory Rate 18 Respiratory Effort / Characteristics Respiratory Depth Respiratory Pattern Blood Pressure 149/74 H 136/67 Blood Pressure [Left Arm] Blood Pressure Mean 99 97 Blood Pressure Mean [Left Arm] Blood Pressure Position [Left Arm] Pulse Oximetry 99 97 Oxygen Delivery Method Room Air Sepsis Recent Fever Within 48 Hours No Sepsis New/Unexplained Change in Mental Status N/A Sepsis Action Taken by Nursing No Action Required 02/21/24 13:03 02/21/24 13:04 02/21/24 13:38 Temperature 37.4 C Temperature Source Oral Pulse Rate 76 84 Pulse Rate [Apical] Pulse Rate from SpO2 Sensor 76 Pulse Rhythm [Apical] Pulse Strength [Apical] Respiratory Rate 17 Respiratory Effort / Characteristics Respiratory Depth Respiratory Pattern Blood Pressure Blood Pressure [Left Arm] Blood Pressure Mean Blood Pressure Mean [Left Arm] Blood Pressure Position [Left Arm] Pulse Oximetry 98 Oxygen Delivery Method Room Air Sepsis Recent Fever Within 48 Hours Sepsis New/Unexplained Change in Mental Status Sepsis Action Taken by Nursing 02/21/24 15:06 02/21/24 15:10 02/21/24 16:00 Temperature 39.5 C H Temperature Source Oral Pulse Rate 106 H 103 H Pulse Rate [Apical] Pulse Rate from SpO2 Sensor 103 H Pulse Rhythm [Apical] Pulse Strength [Apical] Respiratory Rate 20 31 H Respiratory Effort / Characteristics Respiratory Depth Respiratory Pattern Blood Pressure 119/54 L 147/76 H Blood Pressure [Left Arm] Blood Pressure Mean 75 99 Blood Pressure Mean [Left Arm] Blood Pressure Position [Left Arm] Pulse Oximetry 96 95 Oxygen Delivery Method Room Air Sepsis Recent Fever Within 48 Hours Sepsis New/Unexplained Change in Mental Status Sepsis Action Taken by Nursing 02/21/24 16:55 Temperature 38.0 C H Temperature Source Oral Pulse Rate Pulse Rate [Apical] 99 H Pulse Rate from SpO2 Sensor Pulse Rhythm [Apical] Regular Pulse Strength [Apical] Normal Respiratory Rate 24 Respiratory Effort / Characteristics Non-Labored Spontaneous Respiratory Depth Normal Respiratory Pattern Regular Blood Pressure Blood Pressure [Left Arm] 104/58 L Blood Pressure Mean Blood Pressure Mean [Left Arm] 73 Blood Pressure Position [Left Arm] Lying Pulse Oximetry 97 Oxygen Delivery Method Nasal Cannula Sepsis Recent Fever Within 48 Hours Sepsis New/Unexplained Change in Mental Status Sepsis Action Taken by Nursing Laboratory Data 02/21/24 11:30 02/21/24 11:30 Lab Results 02/21/24 02/21/24 02/21/24 Range/Units 11:30 11:50 12:04 WBC 12.16 H (4.8-10.8) K/ul RBC 4.45 (4.20-5.40) M/uL Hgb 12.9 (12.0-16.0) g/dl POC Hgb 12.2 (12.0-16.0) g/dl Hct 39.3 (37.0-47.0) % POC Hct 36 L (37-47) % MCV 88.3 (80.0-100.0) fL MCH 29.0 (25.0-34.0) pg MCHC 32.8 (32.0-36.0) g/dL RDW Std Deviation 42.7 (36.4-46.3) fL RDW Coeff of Radha 13.2 (11.5-14.5) % Plt Count 219 (130-400) K/uL MPV 9.9 (9.4-12.4) fL Immature Gran % (Auto) 0.7 % Neut % (Auto) 93.9 % Lymph % (Auto) 3.3 % Mineral % (Auto) 1.9 % Eos % (Auto) 0.0 % Baso % (Auto) 0.2 % Neut # (Auto) 11.43 H (1.40-6.50) K/uL Lymph # (Auto) 0.40 L (1.20-3.40) K/uL Mineral # (Auto) 0.23 (0.11-0.59) K/uL Eos # (Auto) 0.00 (0.00-0.50) K/uL Baso # (Auto) 0.02 (0.00-0.20) K/uL Immature Gran # (Auto) 0.08 (0.01-0.20) K/uL POC Sodium 136 (135-144) mmol/L Sodium 136 (136-145) mmol/L POC Potassium 3.8 (3.3-5.0) mmol/L Potassium 3.5 (3.5-5.1) mmol/L POC Chloride 99 L (101-112) mmol/L Chloride 99 (98-107) mmol/L Carbon Dioxide 30 (21-32) mmol/L POC Total CO2 27 (24-31) mmol/L Anion Gap 7 (3-11) POC Anion Gap 15.0 L (16-25) mmol/L POC BUN 9 (7-18) mg/dl BUN 11 (6-23) mg/dl Creatinine 0.81 (0.6-1.2) mg/dl POC Creatinine 0.8 (0.6-1.3) mg/dl Est Cr Clr Drug Dosing 58.8 ml/min Est GFR ( Amer) 82.9 ml/min Est GFR (Non-Af Amer) 71.5 ml/min BUN/Creatinine Ratio 13.6 (10-20) Glucose 162 H (70-99(Fasting)) mg/dl POC Glucose (other) 163 H (70-99) mg/dl Lactate (0.4-2.0) mmol/L Calcium 9.5 (8.6-10.3) mg/dl POC Ioniz Calcium Priscilla 1.13 (1.12-1.32) mmol/l Total Bilirubin 1.3 H (0.2-1.0) mg/dl AST 26 (13-39) U/L ALT 18 (7-52) U/L Alkaline Phosphatase 56 (34-104) U/L Total Protein 7.2 (6.0-8.3) gm/dl Albumin 4.4 (3.4-5.0) gm/dl Globulin 2.8 (2.5-4.0) gm/dl Albumin/Globulin Ratio 1.6 (0.9-2) Lipase 10 L (11-82) U/L Procalcitonin (0-0.5) ng/ml Urine Color Yellow Urine Appearance Clear (Clear) Urine pH 7.0 (4.5-7.5) Ur Specific [place] 1.016 (1.000-1.030) Urine Protein Trace H (Negative) Urine Glucose (UA) Negative (Negative) Urine Ketones Trace H (Negative) Urine Blood 2+ H (Negative) Urine Nitrite Positive A (Negative) Urine Bilirubin Negative (Negative) Urine Urobilinogen Negative (Negative) Ur Leukocyte Esterase 2+ H (Negative) Urine WBC (Auto) 21-50 H (0-5) /hpf Urine RBC (Auto) 11-20 H (0-2) /hpf U Hyaline Cast (Auto) 0-2 (0-2) /lpf U Epithel Cells (Auto) 0-2 (0-2) /hpf Urine Bacteria (Auto) 1+ H (None Seen) 02/21/24 Range/Units 14:41 WBC (4.8-10.8) K/ul RBC (4.20-5.40) M/uL Hgb (12.0-16.0) g/dl POC Hgb (12.0-16.0) g/dl Hct (37.0-47.0) % POC Hct (37-47) % MCV (80.0-100.0) fL MCH (25.0-34.0) pg MCHC (32.0-36.0) g/dL RDW Std Deviation (36.4-46.3) fL RDW Coeff of Radha (11.5-14.5) % Plt Count (130-400) K/uL MPV (9.4-12.4) fL Immature Gran % (Auto) % Neut % (Auto) % Lymph % (Auto) % Mineral % (Auto) % Eos % (Auto) % Baso % (Auto) % Neut # (Auto) (1.40-6.50) K/uL Lymph # (Auto) (1.20-3.40) K/uL Mineral # (Auto) (0.11-0.59) K/uL Eos # (Auto) (0.00-0.50) K/uL Baso # (Auto) (0.00-0.20) K/uL Immature Gran # (Auto) (0.01-0.20) K/uL POC Sodium (135-144) mmol/L Sodium (136-145) mmol/L POC Potassium (3.3-5.0) mmol/L Potassium (3.5-5.1) mmol/L POC Chloride (101-112) mmol/L Chloride (98-107) mmol/L Carbon Dioxide (21-32) mmol/L POC Total CO2 (24-31) mmol/L Anion Gap (3-11) POC Anion Gap (16-25) mmol/L POC BUN (7-18) mg/dl BUN (6-23) mg/dl Creatinine (0.6-1.2) mg/dl POC Creatinine (0.6-1.3) mg/dl Est Cr Clr Drug Dosing ml/min Est GFR ( Amer) ml/min Est GFR (Non-Af Amer) ml/min BUN/Creatinine Ratio (10-20) Glucose (70-99(Fasting)) mg/dl POC Glucose (other) (70-99) mg/dl Lactate 3.4 H* (0.4-2.0) mmol/L Calcium (8.6-10.3) mg/dl POC Ioniz Calcium Priscilla (1.12-1.32) mmol/l Total Bilirubin (0.2-1.0) mg/dl AST (13-39) U/L ALT (7-52) U/L Alkaline Phosphatase (34-104) U/L Total Protein (6.0-8.3) gm/dl Albumin (3.4-5.0) gm/dl Globulin (2.5-4.0) gm/dl Albumin/Globulin Ratio (0.9-2) Lipase (11-82) U/L Procalcitonin 10.50 H (0-0.5) ng/ml Urine Color Urine Appearance (Clear) Urine pH (4.5-7.5) Ur Specific [place] (1.000-1.030) Urine Protein (Negative) Urine Glucose (UA) (Negative) Urine Ketones (Negative) Urine Blood (Negative) Urine Nitrite (Negative) Urine Bilirubin (Negative) Urine Urobilinogen (Negative) Ur Leukocyte Esterase (Negative) Urine WBC (Auto) (0-5) /hpf Urine RBC (Auto) (0-2) /hpf U Hyaline Cast (Auto) (0-2) /lpf U Epithel Cells (Auto) (0-2) /hpf Urine Bacteria (Auto) (None Seen) Administered Medications Discontinued Medications Acetaminophen (Acetaminophen 1000 Mg/100 Ml Iv) Confirm Administered Dose 1,000 mg IV .STK-MED ONE Stop: 02/21/24 15:16 Last Admin: 02/21/24 15:17 Dose: Not Given Documented By: KMO Diatrizoate Meglumine (Diatrizoate Meglumine 30% 100ml Vial) 20 ml INSTIL ONCE ONE Stop: 02/21/24 17:31 Last Admin: 02/21/24 17:42 Dose: 4 ml Documented By: [id number] Sodium Chloride (Nss) 1,000 mls @ 999 mls/hr IV .Q1H1M ONE Stop: 02/21/24 12:31 Last Infusion: 02/21/24 13:06 Dose: Infused Documented By: Admin: 02/21/24 12:03 Dose: 999 mls/hr Documented By: ANTONI Ceftriaxone Sodium (Rocephin) 2,000 mg in 50 mls @ 100 mls/hr IV NOW STA Stop: 02/21/24 13:21 Last Infusion: 02/21/24 13:31 Dose: Infused Documented By: Admin: 02/21/24 13:01 Dose: 100 mls/hr Documented By: CANDACE Sodium Chloride (Nss) 1,000 mls @ 999 mls/hr IV .Q1H1M ONE Stop: 02/21/24 15:07 Last Infusion: 02/21/24 16:18 Dose: Infused Documented By: Admin: 02/21/24 15:04 Dose: 999 mls/hr Documented By: ANTONI Acetaminophen (Ofirmev) 1,000 mg in 100 mls @ 400 mls/hr IV NOW STA Stop: 02/21/24 15:24 Last Infusion: 02/21/24 15:36 Dose: Infused Documented By: Admin: 02/21/24 15:17 Dose: 400 mls/hr Documented By: ANTONI Ioversol (Optiray 320 100ml) 94 ml IV ONCE ONE Stop: 02/21/24 12:29 Last Admin: 02/21/24 12:28 Dose: 94 ml Documented By: FILIBERTO Ketorolac Tromethamine (Ketorolac Tromethamine 15 Mg/Ml Vial) 10 mg IV NOW ONE Stop: 02/21/24 11:32 Last Admin: 02/21/24 12:03 Dose: 10 mg Documented By: ANTONI Morphine Sulfate (Morphine Sulfate 4 Mg/Ml 1 Ml Carp\\Vial) 4 mg IV NOW STA Stop: 02/21/24 14:03 Last Admin: 02/21/24 15:12 Dose: Not Given Documented By: ANTONI Ondansetron HCl (Ondansetron Inj 2 Mg/Ml 2 Ml Vial) 4 mg IV NOW STA Stop: 02/21/24 14:08 Last Admin: 02/21/24 15:04 Dose: 4 mg Documented By: ANTONI Imaging Data Radiologist's Impression: Abdomen/Pelvis CT 02/21/24 11:30 CT SCAN OF THE ABDOMEN AND PELVIS WITH IV CONTRAST CLINICAL HISTORY: Left flank pain. COMPARISON STUDY: Abdominal CT dated 07/18/2019. TECHNIQUE: Following the IV administration of 94 cc of Optiray 320, CT scan of the abdomen and pelvis is performed from the lung bases to the proximal femora. Images are reviewed in the axial, sagittal, and coronal planes. IV contrast was administered without complication. A dose lowering technique was utilized adhering to the principles of ALARA. CT DOSE: 585.12 mGy.cm FINDINGS: Lung bases: The heart is normal in size and without pericardial effusion. There is coronary artery atherosclerosis. There are scattered calcified granulomas. The lung bases are otherwise clear noting mild dependent atelectasis. Liver: The contrast-enhanced liver is normal in size, contour, and attenuation. There is no intrahepatic biliary ductal dilatation. The hepatic veins and portal veins are patent. Gallbladder: Unremarkable. Spleen: Normal in size and attenuation. Pancreas: Unremarkable. Adrenal glands: Unremarkable. Kidneys: The contrast enhanced kidneys are normal in size. There is a 6 mm obstructing calculus in the left proximal ureter at L3-L4. This is seen on image #150 and causes moderate left-sided hydronephrosis. There is associated left- sided perinephric stranding and fluid. An additional 4 mm nonobstructing calculus is seen in the left lower pole. No right renal calculi are clearly identified on this contrast-enhanced examination and there is no right-sided hydronephrosis. There is diminished enhancement of the left kidney. Abdominal vasculature: The abdominal aorta is normal in course and caliber noting moderate atherosclerotic calcification. Bowel: There is postsurgical change from right hemicolectomy with ileocolic anastomosis. Mild fecal retention is noted in the remaining colon. There is no bowel obstruction. Peritoneum: There is no intraperitoneal free air or abdominal ascites. Lymphadenopathy: None. Pelvic viscera: The bladder, uterus, and adnexa are normal as visualized. Skeletal structures: The skeletal structures are osteopenic. There is mild lumbosacral spondylosis. No lytic or blastic lesions are seen. IMPRESSION: 1. There is a 6 mm obstructing calculus in the left proximal ureter. This causes moderate left-sided hydronephrosis. 2. Additional nonobstructing calculus is seen in the left lower pole. 3. There is diminished enhancement of the left kidney as compared to the right, which is likely related to obstruction/hydronephrosis. Correlate with clinical findings and urinalysis for evidence of superimposed urinary tract infection. 4. Additional findings as above. ACT 112: Negative or not required by law. Electronically signed by: Maninder Hines M.D. 02/21/2024 1:30 PM Discharge Plan Visit Data Chief Complaint: Flank Pain Stated Complaint: LOW PLATELETS, FATIGUE, PAIN IN SIDE ED Provider: Choco Kelly Discharge Problem: Sepsis, Renal colic, Hydronephrosis Patient Disposition: Admitted As Inpatient Discharge Instructions Interventions: ED Discharge Assessment Last Done: 02/21/24 17:00 Discharge Problem: Sepsis Qualifiers: Sepsis type: sepsis due to unspecified organism Sepsis acute organ dysfunction status: unspecified Qualified Code(s): A41.9 - Sepsis, unspecified organism Hydronephrosis Qualifiers: Hydronephrosis type: unspecified Qualified Code(s): N13.30 - Unspecified hydronephrosis
[2024-02-21 11:58] LABS: Hematocrit (blood only) 39.3 % (37.0-47.0); Hemoglobin 12.9 g/dl (12.0-16.0); Mean Corpuscular Hgb Conc 32.8 g/dL (32.0-36.0); Mean Corpuscular Volume 88.3 fL (80.0-100.0); Mean Platelet Volume 9.9 fL (9.4-12.4); Platelet Count 219 K/uL (130-400); RDW Coefficient of Variation 13.2 % (11.5-14.5); RDW Standard Deviation 42.7 fL (36.4-46.3); Red Blood Count 4.45 M/uL (4.20-5.40); White Blood Count 12.16 K/ul (4.8-10.8)
[2024-02-21] MEDS: KETOROLAC TROMETHAMINE 15 MG/ML VIAL IV ONE (12:03)
[2024-02-21] MEDS: SODIUM CHLORIDE 0.9% 1,000 ML IV ONE ×2 (12:03→15:04)
[2024-02-21 12:18] LABS: iSTAT Creatinine 0.8 mg/dl (0.6-1.3); iSTAT Hemoglobin 12.2 g/dl (12.0-16.0); iSTAT Ionized Calcium 1.13 mmol/l (1.12-1.32); iSTAT Potassium 3.8 mmol/L (3.3-5.0)
[2024-02-21 12:22] LABS: Albumin Globulin Ratio 1.6 (0.9-2); Albumin Level 4.4 gm/dl (3.4-5.0); BUN Creatinine Ratio 13.6 (10-20); Bilirubin,Total 1.3 mg/dl (0.2-1.0); Calcium 9.5 mg/dl (8.6-10.3); Creatinine Clr Calc Pharmacy 58.8 ml/min; Est GFR (African American) 82.9 ml/min; Est GFR (Non-African American) 71.5 ml/min; Globulin 2.8 gm/dl (2.5-4.0); Potassium 3.5 mmol/L (3.5-5.1); Total Protein 7.2 gm/dl (6.0-8.3)
[2024-02-21 12:23] LABS: Appearance Urine Clear (Clear); Bacteria Urine Automated 1+ (None Seen); Bilirubin Urine Negative (Negative); Blood Urine 2+ (Negative); Cast Urine Automated 0-2 /lpf (0-2); Color Urine Yellow; Epithelial Cell Urine Auto 0-2 /hpf (0-2); Glucose Urine UA Negative (Negative); Ketones Urine Trace (Negative); Leukocyte Esterase Urine 2+ (Negative); Nitrite Urine Positive (Negative); Protein Urine Trace (Negative); Specific Gravity Urine 1.016 (1.000-1.030); Urobilinogen Urine Negative (Negative); WBC Urine Automated 21-50 /hpf (0-5)
[2024-02-21 12:26] LABS: Basophils # (auto) 0.02 K/uL (0.00-0.20); Basophils % (auto) 0.2 %; Immature Granulocytes # (auto) 0.08 K/uL (0.01-0.20); Immature Granulocytes % (auto) 0.7 %; Lymphocytes % (auto) 3.3 %; Monocytes # (auto) 0.23 K/uL (0.11-0.59); Monocytes % (auto) 1.9 %; Neutrophils # (auto) 11.43 K/uL (1.40-6.50); Neutrophils % (auto) 93.9 %
[2024-02-21] MEDS: OPTIRAY 320 100ml IV ONE (12:28)
[2024-02-21] MEDS: cefTRIAXone SODIUM 2,000 MG/50 ML BAG IV STA (13:01)
--- NOTE | 2024-02-21 13:32 | CT Scan Report ---
CT SCAN OF THE ABDOMEN AND PELVIS WITH IV CONTRAST CLINICAL HISTORY: Left flank pain. COMPARISON STUDY: Abdominal CT dated 07/18/2019. TECHNIQUE: Following the IV administration of 94 cc of Optiray 320, CT scan of the abdomen and pelvi s is performed from the lung bases to the proximal femora. Images are reviewed in the axial, sagittal , and coronal planes. IV contrast was administered without complication. A dose lowering technique wa s utilized adhering to the principles of ALARA. CT DOSE: 585.12 mGy.cm FINDINGS: Lung bases: The heart is normal in size and without pericardial effusion. There is coronary artery at herosclerosis. There are scattered calcified granulomas. The lung bases are otherwise clear noting mi ld dependent atelectasis. Liver: The contrast-enhanced liver is normal in size, contour, and attenuation. There is no intrahepa tic biliary ductal dilatation. The hepatic veins and portal veins are patent. Gallbladder: Unremarkable. Spleen: Normal in size and attenuation. Pancreas: Unremarkable. Adrenal glands: Unremarkable. Kidneys: The contrast enhanced kidneys are normal in size. There is a 6 mm obstructing calculus in th e left proximal ureter at L3-L4. This is seen on image #150 and causes moderate left-sided hydronephr osis. There is associated left-sided perinephric stranding and fluid. An additional 4 mm nonobstructi ng calculus is seen in the left lower pole. No right renal calculi are clearly identified on this con trast-enhanced examination and there is no right-sided hydronephrosis. There is diminished enhancemen t of the left kidney. Abdominal vasculature: The abdominal aorta is normal in course and caliber noting moderate atheroscle rotic calcification. Bowel: There is postsurgical change from right hemicolectomy with ileocolic anastomosis. Mild fecal r etention is noted in the remaining colon. There is no bowel obstruction. Peritoneum: There is no intraperitoneal free air or abdominal ascites. Lymphadenopathy: None. Pelvic viscera: The bladder, uterus, and adnexa are normal as visualized. Skeletal structures: The skeletal structures are osteopenic. There is mild lumbosacral spondylosis. N o lytic or blastic lesions are seen. IMPRESSION: 1. There is a 6 mm obstructing calculus in the left proximal ureter. This causes moderate left-sided hydronephrosis. 2. Additional nonobstructing calculus is seen in the left lower pole. 3. There is diminished enhancement of the left kidney as compared to the right, which is likely relat ed to obstruction/hydronephrosis. Correlate with clinical findings and urinalysis for evidence of sup erimposed urinary tract infection. 4. Additional findings as above. ACT 112: Negative or not required by law. Electronically signed by: Maninder Hines M.D. 02/21/2024 1:30 PM
[2024-02-21] MEDS: ONDANSETRON INJ 2 MG/ML 2 ML VIAL IV STA (15:04)
[2024-02-21] MEDS: MoRPHine SULFATE 4 MG/ML 1 ML CARP\\VIAL IV STA (15:12)
[2024-02-21] MEDS: ACETAMINOPHEN 1000 MG/100 ML IV IV ONE (15:17)
[2024-02-21] MEDS: ACETAMINOPHEN 1,000 MG/100 ML VIAL IV STA (15:17)
--- NOTE | 2024-02-21 16:39 | Urology Consultation ---
<Statement entered by Manoj Abdi MD - 02/21/24 17:06> I have discussed Ms. Beck's case with SEN Nunez and agree with the above documentation. We will plan on cystoscopy, left retrograde pyelogram and left ureteral stent placement. We reviewed risks and benefits of surgery. She expressed understanding would like to proceed with surgery -Manoj Abdi MD. Date of Consultation February 21, 2024 Assessment & Plan (1) Calculus of proximal left ureter: 73-year-old female admitted for an obstructing left ureteral calculus and concern for infection. Patient is febrile and tachycardic in the emergency department Lab work showed normal renal function, mild leukocytosis Urinalysis is suspicious for infection Urine and blood cultures are pending Patient received ceftriaxone in the emergency department Continue with broad-spectrum antibiotics and narrow per sensitivity data when available Reviewed and discussed CT scan demonstrating a 6 mm obstructing left proximal ureteral stone Recommend left ureteral stent placement emergently due to concern of fever/chills and infection in the context of an obstructing stone Ureteral stents were discussed in detail Patient is agreeable to proceed Proceed to OR for cystoscopy and left ureteral stent placement Risk and benefits of procedure to be reviewed with patient by Dr. Abdi Keep NPO for procedure will follow History of Present Illness History of Present Illness This is a 73-year-old female with past medical history of hypertension, hyperlipidemia, and nephrolithiasis who presented to the emergency department today for evaluation of left flank pain. On arrival to ED, she was afebrile and hemodynamically stable. She developed a fever of 39.5 since arrival. Lab work reviewed and creatinine 0.81, WBC 12.16, hemoglobin 12.9. Urinalysis showed 2+ blood, positive nitrates, 2+ LE, 21-50 WBC, 1+ bacteria. Urine and blood cultures collected. Workup included CT abdomen pelvis with IV contrast which demonstrated an obstructing 6 mm calculus in the left proximal ureter with moderate left-sided hydronephrosis; additional nonobstructing calculus is seen in the left lower pole. Diminished enhancement of the left kidney as compared to the right. She was treated with IV fluids, Rocephin, ondansetron and ketorolac in the ED. Patient seen and examined in the emergency department. She is resting in litter, and daughter at bedside. She reports left flank pain started yesterday and she began to have chills. No dysuria or hematuria. She reports history of nephrolithiasis. No prior stone episodes or stone surgeries. She had a few sips of water this morning. Allergies Allergy/AdvReac Type Severity Reaction Status Date / Time Sulfa (Sulfonamide Allergy Unknown SOB, Verified 11/20/23 09:37 Antibiotics) Systemic rash SULFATE WITH CHEAP FLIP FLOPS Allergy Unknown I BREAK OUT Uncoded 11/20/23 09:37 Home Medications Medication Instructions Recorded Confirmed Type amlodipine 5 mg tablet 5 mg PO QAM 10/25/18 11/20/23 History atorvastatin 20 mg tablet 20 mg PO HS 10/25/18 11/20/23 History citalopram 40 mg tablet 40 mg PO QAM 10/25/18 11/20/23 History lisinopril 2.5 mg tablet 2.5 mg PO HS 10/25/18 11/20/23 History metformin 500 mg tablet 500 mg PO BID 10/25/18 11/20/23 History trazodone 50 mg tablet 12.5 mg PO HS PRN Insomnia 10/25/18 11/20/23 History prednisolone acetate 1 % eye 1 drp OPB QPM 12/03/18 11/20/23 History drops,suspension (Pred Forte) Bifidobacterium infantis 4 mg 4 mg PO HS 08/09/20 11/20/23 History capsule (Align) cholestyramine-aspartame 4 gram 4 g PO BID 03/17/22 11/20/23 History oral powder (Cholestyramine Light) psyllium seed (sugar) oral powder 1 tsp PO UD PRN BOWEL REGULARITY 03/17/22 11/20/23 History (Metamucil (sugar) oral powder) simethicone 80 mg chewable tablet 80 mg PO UD PRN GAS 03/17/22 11/20/23 History beclomethasone dipropionate 80 2 inh inhalation BID #10.6 grams 02/27/23 11/20/23 Rx mcg/actuation HFA breath activated aerosol (Qvar RediHaler) famotidine 20 mg tablet 20 mg PO DAILY PRN 06/22/23 11/20/23 History albuterol sulfate 90 mcg/actuation 2 inh inhalation Q6H #8.5 grams 08/21/23 11/20/23 Rx aerosol inhaler albuterol sulfate 2.5 mg/3 mL 2.5 mg (3 mL) inhalation Q4 PRN 08/28/23 11/20/23 Rx (0.083 %) solution for nebulization cough/sob #180 mL nitroglycerin 0.4 mg sublingual 0.4 mg sublingual UD PRN Angina 11/20/23 11/20/23 Rx tablet #30 tabs montelukast 10 mg tablet 10 mg PO QAM #90 tabs 02/18/24 Rx Patient History Medical History History of low potassium S/P BOWEL SX ( HOSPITALIZED [facility] FEW YRS AGO ) Fecal urgency REASON FOR UPCOMING PROCEDURE Diarrhea REASON FOR UPCOMING PROCEDURE History of anesthesia reaction UNSURE (PT NOT SURE DETAILS) /? 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 MOST RECENT 2014 / [facility] - NO STENTS REASON FOR HX CATHS: "FEELING BAD" ? ARRYTHMIAS , PT UNDER HIGH LEVEL OF STRESS, ? ANGINA Status post laparotomy History of hemicolectomy 11/26/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 History of wisdom tooth extraction History of left inguinal hernia repair History of section Family History Grandmother (Maternal) Family hx of colon cancer Father Family history of diabetes mellitus Sister Family history of colonic polyps Grandfather (Maternal) Family history of diabetes mellitus Social History Smoking Status: Current every day smoker Second Hand Exposure: Yes (HX); Do You Dip or Chew Tobacco: No; Hx Alcohol Use: No Hx Substance Use: No Preferred Language: Faroese Communication Ability: Effective Visual Impairment: No Limitations Hearing Ability: Normal Cap Sewer Required: No Beliefs That Will Affect Care: None and Mormon Mormon Beliefs: LUTHERAN marital status: Current Living Situation: Spouse and Family Current Living Situation Comment: AND DAUGHTER How many Children do You have: 1 Feels Safe at Home: Yes caffeine: No (uses decaf tea and coffee) Do you think of yourself as: straight/heterosexual Gender Identity: Female Assistive Devices: CPAP Review of Systems Review of Systems: All systems reviewed & are unremarkable except as noted in HPI & below Physical Exam Constitutional: + ill appearing; no acute distress Respiratory: normal respiratory effort; no respiratory distress and no labored breathing Gastrointestinal (Abdomen): Inspection/Auscultation: abdomen normal to inspection Musculoskeletal: Head/Neck/Chest: normocephalic Neurologic: moves all extremities and awake Psychiatric: Orientation: alert and oriented x 3 Results & Data Vital Signs (Past 12 Hours) Vital Signs Temp Pulse Resp BP Pulse Ox O2 Del Method 02/21/24 16:00 103 H 31 H 147/76 H 95 Room Air 02/21/24 15:10 39.5 C H 02/21/24 15:06 106 H 20 119/54 L 96 02/21/24 13:38 37.4 C 02/21/24 13:04 84 02/21/24 13:03 76 17 98 Room Air 02/21/24 13:00 136/67 02/21/24 11:29 97 Room Air 02/21/24 11:10 36.6 C 88 18 149/74 H 99 PG Care Time/CCT Total # of Minutes Spent Total Time Spent with Patient: Total time spent is greater than 50% in coordination of care (as documented) at patient's floor/unit and/or counseling patient: Coding Level of Care Code 22168 INT INP/OBS CARE 2/55MIN Diagnoses Calculus of proximal left ureter N20.1
[2024-02-21] MEDS ORDERED: PROPOFOL IV EMULSION 10 MG/ML 20 ML VIAL IV ONE (16:41)
[2024-02-21] MEDS ORDERED: LIDOCAINE 2% 2 ML VIAL/AMP(20MG/ML) INFIL ONE (16:51)
[2024-02-21] MEDS ORDERED: fentaNYL citrate PF 100 MCG/2 ML VIAL ONE (16:57)
[2024-02-21] MEDS ORDERED: ONDANSETRON INJ 2 MG/ML 2 ML VIAL IV PRN (17:10)
[2024-02-21] MEDS ORDERED: fentaNYL citrate PF 100 MCG/2 ML VIAL IV PRN (17:10)
[2024-02-21] MEDS ORDERED: ATROPINE SULFATE 0.1 MG/ML 10ML SYR IV PRN (17:10)
[2024-02-21] MEDS ORDERED: ePHEDrine sulfate 50 MG/ML AMP IV PRN (17:10)
--- NOTE | 2024-02-21 17:10 | Anesthesiology Consultation ---
Date of Service February 21, 2024 Assessment & Plan Chart Review Chart Review: Acceptable Risk for Surgery and Patient NOT seen in Pre Admission Testing Consults Requested none ASA [id number] Proposed Anesthesia Anesthesia Type: General Risk / Benefits Reviewed With: PT / POA / Parent / Guardian, Accepts Plan and Informed Consent Obtained History Surgery Operation Date: 02/21/24 10:50 Proposed Procedures p Cystoscopy, Left Retrograde Pyelogram, Left Stent Placement - Manoj Abdi MD Height/Weight Height: 5 ft 9 in Weight: 61.1 kg Allergies Allergy/AdvReac Type Severity Reaction Status Date / Time Sulfa (Sulfonamide Allergy Unknown SOB, Verified 11/20/23 09:37 Antibiotics) Systemic rash SULFATE WITH CHEAP FLIP FLOPS Allergy Unknown I BREAK OUT Uncoded 11/20/23 09:37 Medications Home Medications Medication Instructions Recorded Confirmed Last Taken amlodipine 5 mg tablet 2.5 mg PO QAM 10/25/18 11/20/23 03/21/22 atorvastatin 20 mg tablet 20 mg PO HS 10/25/18 11/20/23 03/20/22 citalopram 40 mg tablet 40 mg PO QAM 10/25/18 11/20/23 03/21/22 lisinopril 2.5 mg tablet 2.5 mg PO HS 10/25/18 11/20/23 03/21/22 metformin 500 mg tablet 500 mg PO BID 10/25/18 11/20/23 03/21/22 trazodone 50 mg tablet 12.5 mg PO HS PRN Insomnia 10/25/18 11/20/23 03/20/22 prednisolone acetate 1 % eye 1 drp OPB QPM 12/03/18 11/20/23 03/21/22 drops,suspension (Pred Forte) Bifidobacterium infantis 4 mg 4 mg PO HS 08/09/20 11/20/23 03/20/22 capsule (Align) cholestyramine-aspartame 4 gram 4 g PO BID 03/17/22 11/20/23 Unknown oral powder (Cholestyramine Light) psyllium seed (sugar) oral powder 1 tsp PO UD PRN BOWEL REGULARITY 03/17/22 11/20/23 03/15/22 (Metamucil (sugar) oral powder) simethicone 80 mg chewable tablet 80 mg PO UD PRN GAS 03/17/22 11/20/23 Unknown beclomethasone dipropionate 80 2 inh inhalation BID #10.6 grams 02/27/23 11/20/23 Unknown mcg/actuation HFA breath activated aerosol (Qvar RediHaler) famotidine 20 mg tablet 20 mg PO DAILY PRN 06/22/23 11/20/23 Unknown albuterol sulfate 90 mcg/actuation 2 inh inhalation Q6H #8.5 grams 08/21/23 11/20/23 Unknown aerosol inhaler albuterol sulfate 2.5 mg/3 mL 2.5 mg (3 mL) inhalation Q4 PRN 08/28/23 11/20/23 Unknown (0.083 %) solution for nebulization cough/sob #180 mL nitroglycerin 0.4 mg sublingual 0.4 mg sublingual UD PRN Angina 11/20/23 11/20/23 Unknown tablet #30 tabs montelukast 10 mg tablet 10 mg PO QAM #90 tabs 02/18/24 Unknown Past Medical History Medical History History of low potassium S/P BOWEL SX ( HOSPITALIZED [facility] FEW YRS AGO ) Fecal urgency REASON FOR UPCOMING PROCEDURE Diarrhea REASON FOR UPCOMING PROCEDURE History of anesthesia reaction UNSURE (PT NOT SURE DETAILS) /? 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 MOST RECENT 2014 / [facility] - NO STENTS REASON FOR HX CATHS: "FEELING BAD" ? ARRYTHMIAS , PT UNDER HIGH LEVEL OF STRESS, ? ANGINA Status post laparotomy History of hemicolectomy 11/26/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 History of wisdom tooth extraction History of left inguinal hernia repair History of section Past Anesthesia History No Hx of Anesthesia Complications and No Family Hx of Anesthesia Complications History of PONV No Hx of PONV and No Hx of Motion Sickness Social History Smoking Status: Current every day smoker Do You Dip or Chew Tobacco: No Hx Alcohol Use: No Hx Substance Use: No substance use type: does not use Physical Exam Vital Signs Last Vital Signs Temp 39.5 C H 02/21/24 15:10 Pulse 103 H 02/21/24 16:00 Resp 31 H 02/21/24 16:00 BP 147/76 H 02/21/24 16:00 Pulse Ox 95 02/21/24 16:00 O2 Del Method Room Air 02/21/24 16:00 ENMT Mouth: no dentition abnormality Thyromental Distance: > or= 3.5 Finger Breadths Mallampati Class: II Neck normal visual inspection Respiratory normal respiratory effort Auscultation: lungs clear to auscultation bilaterally Cardiovascular Rate/Rhythm: regular rate and regular rhythm Psychiatric Orientation: alert Testing Laboratory Results 02/21/24 11:30 02/21/24 11:30 Urine Color Yellow 02/21/24 11:50 Urine Appearance Clear (Clear) 02/21/24 11:50 Urine pH 7.0 (4.5-7.5) 02/21/24 11:50 Ur Specific [place] 1.016 (1.000-1.030) 02/21/24 11:50 Urine Protein Trace (Negative) H 02/21/24 11:50 Urine Glucose (UA) Negative (Negative) 02/21/24 11:50 Urine Ketones Trace (Negative) H 02/21/24 11:50 Urine Nitrite Positive (Negative) A 02/21/24 11:50 Ur Leukocyte Esterase 2+ (Negative) H 02/21/24 11:50 Urine WBC (Auto) 21-50 /hpf (0-5) H 02/21/24 11:50 Urine RBC (Auto) 11-20 /hpf (0-2) H 02/21/24 11:50 U Hyaline Cast (Auto) 0-2 /lpf (0-2) 02/21/24 11:50 U Epithel Cells (Auto) 0-2 /hpf (0-2) 02/21/24 11:50 Urine Bacteria (Auto) 1+ (None Seen) H 02/21/24 11:50 02/21/24 12:04 POC Glucose (other) 163 H
[2024-02-21] MEDS ORDERED: GLYCOPYRROLATE 0.2 MG/ML VIAL ONE (17:23)
[2024-02-21] MEDS ORDERED: SUCCINYLCHOLINE 100MG/5ML SYR IV ONE (17:23)
[2024-02-21] MEDS ORDERED: DEXAMETHASONE SOD INJ 4 MG/ML VIAL ONE (17:23)
[2024-02-21] MEDS ORDERED: ONDANSETRON INJ 2 MG/ML 2 ML VIAL ONE (17:23)
[2024-02-21] MEDS ORDERED: PHENYLEPHRINE 100MCG/ML 10ML SYR IV ONE (17:29)
[2024-02-21] MEDS ORDERED: ePHEDrine sulfate 50 MG/5 ML SYR ONE (17:29)
--- NOTE | 2024-02-21 17:41 | Operative Report ---
[facility] Post Operative Report Pre & Post Diagnosis Operation Date: 02/21/24 10:50 Pre-Op Diagnosis: Calculus of proximal left ureter Post-Op Diagnosis: Calculus of proximal left ureter I identified the patient and participated in the time-out.: Yes Procedure Operation Date: 02/21/24 10:50 Actual Procedures p Cystoscopy, Left Retrograde Pyelogram, Left Stent Placement(Left) - Manoj Abdi MD Surgeon Manoj Abdi MD Plsql Developer None Estimated Blood Loss 0 Findings Consistent with Post-Op Diagnosis Specimens None Drains 6 Ukrainian by 24 cm double-J ureteral stent to the left ureter 16 Ukrainian Ramos catheter per urethra Anesthesia Type General Complications none Disposition Accompanied Patient To Recovery: Yes Disposition: Recovery Room Indications This is a 73-year-old female who presented to the emergency department on 02/21/2024 with UTI and a left ureteral stone. She is being brought to the OR for left ureteral stent placement. Description of Procedure The patient was identified in the holding area and informed consent was confirmed. She was marked on the left side, then was taken to the operating room where anesthesia was initiated. She was placed in the dorsal lithotomy position with all pressure points appropriately padded. She was prepped and draped in the usual sterile fashion and a preoperative timeout was performed. A well-lubricated cystoscope was inserted per urethra and panendoscopy was performed. The urethra was normal in appearance. The bladder was of normal size with ureteral orifices in orthotopic position. The left ureteral orifice was identified and cannulated with a 5 Ukrainian open- ended catheter. A retrograde pyelogram was performed demonstrating the ureter was normal in course and caliber. In the proximal ureter there was a filling defect and then proximal to this there was hydroureter and hydronephrosis.. A 0.038" ZIPwire was advanced to the level of the kidney under fluoroscopic guidance. Over the wire, a 6 Ukrainian x 24 centimeter double-J ureteral stent was advanced. When the wire was removed, the proximal curl was visualized in the kidney with x-ray, and the distal curl visualized in the bladder with the cystoscope. A 16 Ukrainian Ramos catheter was placed. The balloon was inflated with 10 mL normal saline and the catheter was attached to gravity drainage. The patient was then awakened from anesthesia and was brought to the PACU in stable condition. I attest to the content of the Intraoperative Record and any orders documented therein. Any exceptions are noted below.
[2024-02-21] MEDS: DIATRIZOATE MEGLUMINE 30% 100ML VIAL INSTIL ONE (17:42)
--- NOTE | 2024-02-21 17:51 | Fluoroscopy Report ---
INTRAOPERATIVE RADIOGRAPHS CLINICAL HISTORY: Left ureteral stent placement. Fluoro time: 7 seconds Ka,r: 1.03 mGy FINDINGS: 2 spot fluoroscopic views of the left abdomen are correlated with abdominal CT performed same day 02/21/2024. The initial image shows contrast within the dilated left renal collecting syste m. The second image shows the proximal end of a left ureteral stent in appropriate position. IMPRESSION: Intraoperative images from a left ureteral stent placement as above. Electronically signed by: Maninder Hines M.D. 02/21/2024 5:50 PM
--- NOTE | 2024-02-21 17:54 | History & Physical Report ---
Date of Service February 21, 2024 Assessment & Plan (1) Hydronephrosis: (2) Calculus of proximal left ureter: (3) GERD (gastroesophageal reflux disease): (4) Asthma: (5) Hyperlipidemia: (6) Hypertension: (7) Depression: (8) Diabetes mellitus, type 2: Plan Assessment and plan: Acute UTI Left hydronephrosis/obstructing calculus: S/p cystoscopy/L stent placement 02/20- Blood cultures/urine cultures pending Continue IV ceftriaxone, continue Flomax Urology following, continue IV fluids Hx asthma: Continue albuterol as needed, continue montelukast Hx HTN/HLD: Continue amlodipine/hold atorvastatin with lactic acidosis Hx anxiety: Continue escitalopram Hx DM2: Hold metformin, SSI/4 times daily BGM Add Lantus as needed, check A1c Full code DVT prophylaxis: SCDs, can initiate heparin in a.m. if okay with urology A total of 60 minutes was spent coordinating, documenting, and providing care for this patient excluding time spent in the performance of separately billed services. This included personally viewing all current laboratories and imaging studies, medication reconciliation, outpatient chart review and discussion with specialist History of Present Illness Chief Complaint: Abdominal pain, nausea, vomiting Primary Care Provider: Marie Gould MD The patient is a 73-year-old female with a past medical history of HTN, HLD, kidney stones, DM 2, suspected COPD, appendiceal tumor, mitral valve prolapse who presented to the ED on 02/21/2024 with complaints of left flank pain/fever that started last night 02/20/2024. Reports the pain has been getting worse. Patient reported that she had kidney stones in the past. She reports having trouble with bowel movement. Denies any burning with urination urgency or frequency. 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 Urology was consulted. The patient was febrile and tachycardic in the ED and vomiting. The patient denies any diarrhea/shortness of breath/chest pain. Patient did have 1 episode of nausea/vomiting in the ER. On arrival to the ED, labs are remarkable for WBC 12, lactic acid 3.4, glucose 163, total bili 1.3, procalcitonin 10.5 UA was positive for blood, nitrates, WBC and bacteria, urine and blood cultures are pending CT A/P showed an obstructing 6 mm calculus in the left proximal ureter with moderate left-sided hydronephrosis with additional nonobstructing calculus seen in the left lower pole. EKG showed sinus tachycardia The patient was given IV fluids, Rocephin, Zofran and morphine in the ED. The patient was then taken to the OR for cystoscopy, left retrograde pyelogram, left stent placement She will be admitted to hospital for further management Allergies Allergy/AdvReac Type Severity Reaction Status Date / Time Sulfa (Sulfonamide Allergy Unknown SOB, Verified 11/20/23 09:37 Antibiotics) Systemic rash SULFATE WITH CHEAP FLIP FLOPS Allergy Unknown I BREAK OUT Uncoded 11/20/23 09:37 Home Medications Medication Instructions Recorded Confirmed Type amlodipine 5 mg tablet 2.5 mg PO QAM 10/25/18 02/21/24 History atorvastatin 20 mg tablet 20 mg PO HS 10/25/18 02/21/24 History citalopram 40 mg tablet 40 mg PO QAM 10/25/18 02/21/24 History lisinopril 2.5 mg tablet 2.5 mg PO HS 10/25/18 02/21/24 History metformin 500 mg tablet 500 mg PO DAILY 10/25/18 02/21/24 History trazodone 50 mg tablet 12.5 mg PO HS PRN Insomnia 10/25/18 02/21/24 History prednisolone acetate 1 % eye 1 drp OPB QPM 12/03/18 02/21/24 History drops,suspension (Pred Forte) Bifidobacterium infantis 4 mg 4 mg PO HS 08/09/20 02/21/24 History capsule (Align) cholestyramine-aspartame 4 gram 4 g PO BID 03/17/22 02/21/24 History oral powder (Cholestyramine Light) psyllium seed (sugar) oral powder 1 tsp PO UD PRN BOWEL REGULARITY 03/17/22 02/21/24 History (Metamucil (sugar) oral powder) simethicone 80 mg chewable tablet 80 mg PO UD PRN GAS 03/17/22 02/21/24 History beclomethasone dipropionate 80 2 inh inhalation BID #10.6 grams 02/27/2301/27 Rx mcg/actuation HFA breath activated aerosol (Qvar RediHaler) famotidine 20 mg tablet 20 mg PO DAILY PRN Heartburn 06/22/23 02/21/24 History albuterol sulfate 90 mcg/actuation 2 inh inhalation Q6H #8.5 grams 08/21/23 02/21/24 Rx aerosol inhaler albuterol sulfate 2.5 mg/3 mL 2.5 mg (3 mL) inhalation Q4 PRN 08/28/23 02/21/24 Rx (0.083 %) solution for nebulization cough/sob #180 mL nitroglycerin 0.4 mg sublingual 0.4 mg sublingual UD PRN Angina 11/20/23 02/21/24 Rx tablet #30 tabs montelukast 10 mg tablet 10 mg PO QAM #90 tabs 02/18/24 02/21/24 Rx Past Med/Surg History Problem List Hydronephrosis (Acute) Renal colic (Acute) Sepsis (Acute) Calculus of proximal left ureter Encounter for pre-operative examination GERD (gastroesophageal reflux disease) Asthma Shortness of breath Sleep apnea (Chronic) cpap PVC's (premature ventricular contractions) (Chronic) Mitral valve prolapse (Chronic) Hyperlipidemia (Chronic) Hypertension (Chronic) Depression (Chronic) Anxiety (Chronic) Panic attacks (Chronic) REMOTE HX Diabetes mellitus, type 2 (Chronic) Medical History History of low potassium S/P BOWEL SX ( HOSPITALIZED [facility] FEW YRS AGO ) Fecal urgency REASON FOR UPCOMING PROCEDURE Diarrhea REASON FOR UPCOMING PROCEDURE History of anesthesia reaction UNSURE (PT NOT SURE DETAILS) /? 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 MOST RECENT 2014 / [facility] - NO STENTS REASON FOR HX CATHS: "FEELING BAD" ? ARRYTHMIAS , PT UNDER HIGH LEVEL OF STRESS, ? ANGINA Status post laparotomy History of hemicolectomy 11/26/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 History of wisdom tooth extraction History of left inguinal hernia repair History of section Family History Grandmother (Maternal) Family hx of colon cancer Father Family history of diabetes mellitus Sister Family history of colonic polyps Grandfather (Maternal) Family history of diabetes mellitus Social History Smoking Status: Current every day smoker Second Hand Exposure: Yes (HX); Do You Dip or Chew Tobacco: No; Hx Alcohol Use: No Hx Substance Use: No Preferred Language: Mauritian Communication Ability: Effective Visual Impairment: No Limitations Hearing Ability: Normal Director Of [employer] Required: No Beliefs That Will Affect Care: None and Buddhist Buddhist Beliefs: ORTHODOX marital status: Current Living Situation: Spouse and Family Current Living Situation Comment: AND DAUGHTER How many Children do You have: 1 Feels Safe at Home: Yes caffeine: No (uses decaf tea and coffee) Do you think of yourself as: straight/heterosexual Gender Identity: Female Assistive Devices: CPAP Review of Systems Review of Systems: All negative aside from stated in HPI Physical Exam Constitutional: WD/WN, vitals as above Eyes: PERRL, conjunctivae normal, anicteric sclerae ENMT: external ear and nose normal, oropharynx normal Neck: trachea midline, no thyromegaly Respiratory: normal respiratory effort, lungs clear to auscultation Cardiovascular: RRR, no murmur, no edema Gastrointestinal (Abdomen): normal bowel sounds, soft, nontender, no hepatosplenomegaly Percussion/Palpation: + abdomen tender (Left-sided flank pain); no guarding and abdomen not rigid Musculoskeletal: no cyanosis or clubbing, extremities motor strength 5/5 Skin: no rashes, warm and dry Neurologic: patellar DTR's 2+ bilat, sensation intact Psychiatric: A+Ox3, euthymic affect Results & Data Results & Data Vital Signs (Past 12 Hours) Vital Signs Temp Pulse Pulse Resp BP BP Pulse Ox 02/21/24 16:55 38.0 C H 99 H 24 104/58 L 97 02/21/24 16:00 103 H 31 H 147/76 H 95 02/21/24 15:10 39.5 C H 02/21/24 15:06 106 H 20 119/54 L 96 02/21/24 13:38 37.4 C 02/21/24 13:04 84 02/21/24 13:03 76 17 98 02/21/24 13:00 136/67 02/21/24 11:29 97 02/21/24 11:10 36.6 C 88 18 149/74 H 99 O2 Del Method 02/21/24 16:55 Nasal Cannula 02/21/24 16:00 Room Air 02/21/24 15:10 02/21/24 15:06 02/21/24 13:38 02/21/24 13:04 02/21/24 13:03 Room Air 02/21/24 13:00 02/21/24 11:29 Room Air 02/21/24 11:10 Diagnostic Findings Laboratory Results WBC 12.16 K/ul (4.8-10.8) H 02/21/24 11:30 RBC 4.45 M/uL (4.20-5.40) 02/21/24 11:30 Hgb 12.9 g/dl (12.0-16.0) 02/21/24 11:30 POC Hgb 12.2 g/dl (12.0-16.0) 02/21/24 12:04 Hct 39.3 % (37.0-47.0) 02/21/24 11:30 POC Hct 36 % (37-47) L 02/21/24 12:04 MCV 88.3 fL (80.0-100.0) 02/21/24 11:30 MCH 29.0 pg (25.0-34.0) 02/21/24 11:30 MCHC 32.8 g/dL (32.0-36.0) 02/21/24 11:30 RDW Std Deviation 42.7 fL (36.4-46.3) 02/21/24 11:30 RDW Coeff of Radha 13.2 % (11.5-14.5) 02/21/24 11:30 Plt Count 219 K/uL (130-400) 02/21/24 11:30 MPV 9.9 fL (9.4-12.4) 02/21/24 11:30 Immature Gran % (Auto) 0.7 % 02/21/24 11:30 Neut % (Auto) 93.9 % 02/21/24 11:30 Lymph % (Auto) 3.3 % 02/21/24 11:30 Nelson % (Auto) 1.9 % 02/21/24 11:30 Eos % (Auto) 0.0 % 02/21/24 11:30 Baso % (Auto) 0.2 % 02/21/24 11:30 Neut # (Auto) 11.43 K/uL (1.40-6.50) H 02/21/24 11:30 Lymph # (Auto) 0.40 K/uL (1.20-3.40) L 02/21/24 11:30 Nelson # (Auto) 0.23 K/uL (0.11-0.59) 02/21/24 11:30 Eos # (Auto) 0.00 K/uL (0.00-0.50) 02/21/24 11:30 Baso # (Auto) 0.02 K/uL (0.00-0.20) 02/21/24 11:30 Immature Gran # (Auto) 0.08 K/uL (0.01-0.20) 02/21/24 11:30 POC Sodium 136 mmol/L (135-144) 02/21/24 12:04 Sodium 136 mmol/L (136-145) 02/21/24 11:30 POC Potassium 3.8 mmol/L (3.3-5.0) 02/21/24 12:04 Potassium 3.5 mmol/L (3.5-5.1) 02/21/24 11:30 POC Chloride 99 mmol/L (101-112) L 02/21/24 12:04 Chloride 99 mmol/L (98-107) 02/21/24 11:30 Carbon Dioxide 30 mmol/L (21-32) 02/21/24 11:30 POC Total CO2 27 mmol/L (24-31) 02/21/24 12:04 Anion Gap 7 (3-11) 02/21/24 11:30 POC Anion Gap 15.0 mmol/L (16-25) L 02/21/24 12:04 POC BUN 9 mg/dl (7-18) 02/21/24 12:04 BUN 11 mg/dl (6-23) 02/21/24 11:30 Creatinine 0.81 mg/dl (0.6-1.2) 02/21/24 11:30 POC Creatinine 0.8 mg/dl (0.6-1.3) 02/21/24 12:04 Est Cr Clr Drug Dosing 58.8 ml/min 02/21/24 11:30 Est GFR ( Amer) 82.9 ml/min 02/21/24 11:30 Est GFR (Non-Af Amer) 71.5 ml/min 02/21/24 11:30 BUN/Creatinine Ratio 13.6 (10-20) 02/21/24 11:30 Glucose 162 mg/dl (70-99(Fasting)) H 02/21/24 11:30 POC Glucose (other) 163 mg/dl (70-99) H 02/21/24 12:04 Lactate 3.4 mmol/L (0.4-2.0) H* 02/21/24 14:41 Calcium 9.5 mg/dl (8.6-10.3) 02/21/24 11:30 POC Ioniz Calcium Priscilla 1.13 mmol/l (1.12-1.32) 02/21/24 12:04 Total Bilirubin 1.3 mg/dl (0.2-1.0) H 02/21/24 11:30 AST 26 U/L (13-39) 02/21/24 11:30 ALT 18 U/L (7-52) 02/21/24 11:30 Alkaline Phosphatase 56 U/L (34-104) 02/21/24 11:30 Total Protein 7.2 gm/dl (6.0-8.3) 02/21/24 11:30 Albumin 4.4 gm/dl (3.4-5.0) 02/21/24 11:30 Globulin 2.8 gm/dl (2.5-4.0) 02/21/24 11:30 Albumin/Globulin Ratio 1.6 (0.9-2) 02/21/24 11:30 Lipase 10 U/L (11-82) L 02/21/24 11:30 Procalcitonin 10.50 ng/ml (0-0.5) H 02/21/24 14:41 Urine Color Yellow 02/21/24 11:50 Urine Appearance Clear (Clear) 02/21/24 11:50 Urine pH 7.0 (4.5-7.5) 02/21/24 11:50 Ur Specific [place] 1.016 (1.000-1.030) 02/21/24 11:50 Urine Protein Trace (Negative) H 02/21/24 11:50 Urine Glucose (UA) Negative (Negative) 02/21/24 11:50 Urine Ketones Trace (Negative) H 02/21/24 11:50 Urine Blood 2+ (Negative) H 02/21/24 11:50 Urine Nitrite Positive (Negative) A 02/21/24 11:50 Urine Bilirubin Negative (Negative) 02/21/24 11:50 Urine Urobilinogen Negative (Negative) 02/21/24 11:50 Ur Leukocyte Esterase 2+ (Negative) H 02/21/24 11:50 Urine WBC (Auto) 21-50 /hpf (0-5) H 02/21/24 11:50 Urine RBC (Auto) 11-20 /hpf (0-2) H 02/21/24 11:50 U Hyaline Cast (Auto) 0-2 /lpf (0-2) 02/21/24 11:50 U Epithel Cells (Auto) 0-2 /hpf (0-2) 02/21/24 11:50 Urine Bacteria (Auto) 1+ (None Seen) H 02/21/24 11:50 Impressions Retrograde Pyelogram 02/21/24 00:00 INTRAOPERATIVE RADIOGRAPHS CLINICAL HISTORY: Left ureteral stent placement. Fluoro time: 7 seconds Ka,r: 1.03 mGy FINDINGS: 2 spot fluoroscopic views of the left abdomen are correlated with abdominal CT performed the same day 02/21/2024. The initial image shows contrast within the dilated left renal collecting system. The second image shows the proximal end of a left ureteral stent in appropriate position. IMPRESSION: Intraoperative images from a left ureteral stent placement as above. Electronically signed by: Maninder Hines M.D. 02/21/2024 5:50 PM Abdomen/Pelvis CT 02/21/24 11:30 CT SCAN OF THE ABDOMEN AND PELVIS WITH IV CONTRAST CLINICAL HISTORY: Left flank pain. COMPARISON STUDY: Abdominal CT dated 07/18/2019. TECHNIQUE: Following the IV administration of 94 cc of Optiray 320, CT scan of the abdomen and pelvis is performed from the lung bases to the proximal femora. Images are reviewed in the axial, sagittal, and coronal planes. IV contrast was administered without complication. A dose lowering technique was utilized adhering to the principles of ALARA. CT DOSE: 585.12 mGy.cm FINDINGS: Lung bases: The heart is normal in size and without pericardial effusion. There is coronary artery atherosclerosis. There are scattered calcified granulomas. The lung bases are otherwise clear noting mild dependent atelectasis. Liver: The contrast-enhanced liver is normal in size, contour, and attenuation. There is no intrahepatic biliary ductal dilatation. The hepatic veins and portal veins are patent. Gallbladder: Unremarkable. Spleen: Normal in size and attenuation. Pancreas: Unremarkable. Adrenal glands: Unremarkable. Kidneys: The contrast enhanced kidneys are normal in size. There is a 6 mm obstructing calculus in the left proximal ureter at L3-L4. This is seen on image #150 and causes moderate left-sided hydronephrosis. There is associated left- sided perinephric stranding and fluid. An additional 4 mm nonobstructing calculus is seen in the left lower pole. No right renal calculi are clearly identified on this contrast-enhanced examination and there is no right-sided hydronephrosis. There is diminished enhancement of the left kidney. Abdominal vasculature: The abdominal aorta is normal in course and caliber noting moderate atherosclerotic calcification. Bowel: There is postsurgical change from right hemicolectomy with ileocolic anastomosis. Mild fecal retention is noted in the remaining colon. There is no bowel obstruction. Peritoneum: There is no intraperitoneal free air or abdominal ascites. Lymphadenopathy: None. Pelvic viscera: The bladder, uterus, and adnexa are normal as visualized. Skeletal structures: The skeletal structures are osteopenic. There is mild lumbosacral spondylosis. No lytic or blastic lesions are seen. IMPRESSION: 1. There is a 6 mm obstructing calculus in the left proximal ureter. This causes moderate left-sided hydronephrosis. 2. Additional nonobstructing calculus is seen in the left lower pole. 3. There is diminished enhancement of the left kidney as compared to the right, which is likely related to obstruction/hydronephrosis. Correlate with clinical findings and urinalysis for evidence of superimposed urinary tract infection. 4. Additional findings as above. ACT 112: Negative or not required by law. Electronically signed by: Maninder Hines M.D. 02/21/2024 1:30 PM Medications Administered Home Medications Medication Instructions Recorded Confirmed Last Taken amlodipine 5 mg tablet 2.5 mg PO QAM 10/25/18 02/21/24 03/21/22 atorvastatin 20 mg tablet 20 mg PO HS 10/25/18 02/21/24 03/20/22 citalopram 40 mg tablet 40 mg PO QAM 10/25/18 02/21/24 03/21/22 lisinopril 2.5 mg tablet 2.5 mg PO HS 10/25/18 02/21/24 03/21/22 metformin 500 mg tablet 500 mg PO DAILY 10/25/18 02/21/24 03/21/22 trazodone 50 mg tablet 12.5 mg PO HS PRN Insomnia 10/25/18 02/21/24 03/20/22 prednisolone acetate 1 % eye 1 drp OPB QPM 12/03/18 02/21/24 03/21/22 drops,suspension (Pred Forte) Bifidobacterium infantis 4 mg 4 mg PO HS 08/09/20 02/21/24 03/20/22 capsule (Align) cholestyramine-aspartame 4 gram 4 g PO BID 03/17/22 02/21/24 Unknown oral powder (Cholestyramine Light) psyllium seed (sugar) oral powder 1 tsp PO UD PRN BOWEL REGULARITY 03/17/22 02/21/24 03/15/22 (Metamucil (sugar) oral powder) simethicone 80 mg chewable tablet 80 mg PO UD PRN GAS 03/17/22 02/21/24 Unknown beclomethasone dipropionate 80 2 inh inhalation BID #10.6 grams 02/27/23 02/21/24 Unknown mcg/actuation HFA breath activated aerosol (Qvar RediHaler) famotidine 20 mg tablet 20 mg PO DAILY PRN Heartburn 06/22/23 02/21/24 Unknown albuterol sulfate 90 mcg/actuation 2 inh inhalation Q6H #8.5 grams 08/21/23 02/21/24 Unknown aerosol inhaler albuterol sulfate 2.5 mg/3 mL 2.5 mg (3 mL) inhalation Q4 PRN 04/02/24 09/26/24 Unknown (0.083 %) solution for nebulization cough/sob #180 mL nitroglycerin 0.4 mg sublingual 0.4 mg sublingual UD PRN Angina 11/20/23 02/21/24 Unknown tablet #30 tabs montelukast 10 mg tablet 10 mg PO QAM #90 tabs 02/18/24 02/21/24 Unknown Supervising Physician Co-Signing Physician Notes Patient is a 73-year-old female with history of ZAHRA, asthma, mitral valve prolapse, hypertension, diabetes mellitus and other medical problems presents with history of worsening left flank pain since 1 day duration. Patient also states having constipation and an episode of nausea and vomiting. She denies any dysuria, increased urinary frequency or hematuria. Please review HPI for complete details of presentation. I personally reviewed blood work and imaging studies. CTA abdomen showed moderate left hydronephrosis, 6 mm left ureteral stone. Urinalysis suggestive of possible urinary tract infection. EKG showed sinus tachycardia with ST changes. Patient denies any chest pain, dyspnea. Poor historian. Noted to have lactic acidosis 3.4, repeat 2.8. Procalcitonin 10.50. Physical Exam: Vitals signs as noted above General Appearance: Thin, frail, ill-appearing, mild distress Head: normocephalic, Atraumatic Eyes: normal inspection, EOMI Neck: supple, Trachea midline Respiratory/Chest: Normal breath sounds, CTA, No accessory muscle use Cardiovascular: S1, S2, No murmur,+ tachycardia Abdomen/GI:Soft, left flank tender, Bowel sounds present Extremities/Musculoskeletal:normal inspection, no edema Neurologic/Psych:AAOX3, grossly no focal neurological deficits Skin: normal color, warm Complicated UTI Sepsis Obstructive uropathy Agree with broad-spectrum antibiotics IV fluids Hold antihypertensives given low BP Urology on board Follow-up cultures Abnormal EKG Check echo for wall motion abnormality Trend troponins Repeat EKG I personally interviewed and examined at bedside. Patient's care is coordinated with Luis Fernando CHATTERJEE. . I have reviewed the advanced practitioner's documentation, and I agree with plan of care. Please refer to the documentation above for details of patient's presentation and for discussion of other issues. I spent a total [id number] coordinating, documenting, and providing care for this patient excluding time spent in the performance of separately billed services. (1) Hydronephrosis Hydronephrosis type: unspecified Qualified Code(s): N13.30 - Unspecified hydronephrosis
--- NOTE | 2024-02-21 18:00 | Anesthesiology Progress Note ---
Date of Service February 21, 2024 Anesthesia Post Procedure Vital Signs Vital Signs: Temp Pulse Pulse Resp BP BP Pulse Ox 02/21/24 17:55 98 H 24 98/54 L 97 02/21/24 17:48 37.4 C 99 H 23 101/54 L 94 02/21/24 16:55 38.0 C H 99 H 24 104/58 L 97 02/21/24 16:00 103 H 31 H 147/76 H 95 02/21/24 15:10 39.5 C H 02/21/24 15:06 106 H 20 119/54 L 96 02/21/24 13:38 37.4 C 02/21/24 13:04 84 02/21/24 13:03 76 17 98 02/21/24 13:00 136/67 02/21/24 11:29 97 02/21/24 11:10 36.6 C 88 18 149/74 H 99 O2 Del Method O2 Flow Rate 02/21/24 17:55 Oxymask 9 02/21/24 17:48 Oxymask 9 02/21/24 16:55 Nasal Cannula 02/21/24 16:00 Room Air 02/21/24 15:10 02/21/24 15:06 02/21/24 13:38 02/21/24 13:04 02/21/24 13:03 Room Air 02/21/24 13:00 02/21/24 11:29 Room Air 02/21/24 11:10 Transfer of Care Handoff Completed per policy Notes Mental Status: alert / awake / arousable Patient Amnestic to Procedure: Yes Nausea / Vomiting: adequately controlled Pain: adequately controlled Airway Patency, RR, SpO2: stable & adequate BP & HR: stable & adequate Hydration State: stable & adequate Anesthetic Complications: no major complications apparent
[2024-02-21] MEDS ORDERED: GLUCOSE 40% GEL 15 GM TUBE PO PRN (19:00)
[2024-02-21] MEDS ORDERED: DEXTROSE 50% 50 ML SYRINGE IV PRN (19:00)
[2024-02-21] MEDS ORDERED: CARBOHYDRATES FOR HYPOGLYCEMIA PO PRN (19:00)
[2024-02-21] MEDS ORDERED: GLUCOSE 10 TAB/TUBE PO PRN (19:00)
[2024-02-21] MEDS ORDERED: GLUCAGON FOR INJ 1 MG VIAL SQ PRN (19:00)
[2024-02-21] MEDS: LACTATED RINGER'S 1,000 ML IV SCH (19:40)
[2024-02-21] MEDS: SODIUM CHLORIDE 0.9% 500 ML IV ONE (19:59)
[2024-02-21] MEDS: INSULIN ASPART PER UNIT CHARGE SC SCH (21:05)
[2024-02-21] MEDS: CEFEPIME 2,000 MG in SYRINGE 0 ML IV SCH (21:15)
[2024-02-21] MEDS: SODIUM CHLORIDE 0.9% 1,000 ML IV SCH (21:16)
[2024-02-21] MEDS: TAMSULOSIN HCL 0.4 MG CAP PO SCH (21:18)
[2024-02-22] MEDS: prednisoLONE acetate 1% OP SUSP 5 ML BTL OPB SCH (00:32)
[2024-02-22 03:18] LABS: Basophils # (auto) 0.03 K/uL (0.00-0.20); Basophils % (auto) 0.2 %; Hematocrit (blood only) 32.3 % (37.0-47.0); Hemoglobin 10.5 g/dl (12.0-16.0); Immature Granulocytes # (auto) 0.55 K/uL (0.01-0.20); Immature Granulocytes % (auto) 3.3 %; Lymphocytes % (auto) 3.6 %; Mean Corpuscular Hemoglobin 28.7 pg (25.0-34.0); Mean Corpuscular Hgb Conc 32.5 g/dL (32.0-36.0); Mean Corpuscular Volume 88.3 fL (80.0-100.0); Mean Platelet Volume 10.5 fL (9.4-12.4); Monocytes # (auto) 0.75 K/uL (0.11-0.59); Monocytes % (auto) 4.4 %; Neutrophils # (auto) 14.94 K/uL (1.40-6.50); Neutrophils % (auto) 88.5 %; Platelet Count 118 K/uL (130-400); RDW Coefficient of Variation 13.7 % (11.5-14.5); RDW Standard Deviation 44.6 fL (36.4-46.3); Red Blood Count 3.66 M/uL (4.20-5.40); White Blood Count 16.87 K/ul (4.8-10.8)
[2024-02-22 03:36] LABS: Albumin Globulin Ratio 1.4 (0.9-2); BUN Creatinine Ratio 14.7 (10-20); Bilirubin,Total 0.8 mg/dl (0.2-1.0); Calcium 7.8 mg/dl (8.6-10.3); Creatinine Clr Calc Pharmacy 50.1 ml/min; Est GFR (African American) 68.4 ml/min; Globulin 2.1 gm/dl (2.5-4.0); Magnesium 1.3 mg/dl (1.7-2.4); Potassium 2.8 mmol/L (3.5-5.1); Total Protein 5.1 gm/dl (6.0-8.3); Troponin I High Sensitivity 44.4 pg/ml (0-14)
[2024-02-22] MEDS: MAGNESIUM SULFATE / D5W 1 GM/100 ML BAG IV SCH (04:09)
[2024-02-22] MEDS: POTASSIUM CHLORIDE PWD 20 MEQ PACK PO STA (04:53)
[2024-02-22] MEDS: POTASSIUM CHLORIDE 20 MEQ in LACTATED RINGER'S 1,000 ML IV ONE ×2 (04:57→07:33)
[2024-02-22] MEDS: LACTATED RINGER'S 1,000 ML IV ONE (05:15)
[2024-02-22] MEDS: POTASSIUM CHLORIDE PWD 20 MEQ PACK PO ONE (05:58)
--- NOTE | 2024-02-22 06:05 | Electrocardiogram Report ---
Test Reason : Blood Pressure : */* mmHG Vent. Rate : 108 BPM Atrial Rate : 108 BPM P-R Int : 126 ms QRS Dur : 84 ms QT Int : 320 ms P-R-T Axes : 25 43 5 degrees QTcB Int : [address] depression, consider subendocardial injury Abnormal ECG When compared with ECG of 04-Dec-2018 07:03, Vent. rate has increased by 39 bpm Nonspecific T wave abnormality no longer evident in Anterior leads Confirmed by Logan Pacheco ([id number]) on 02/22/2024 6:05:18 AM Referred By: REFERRED SELF Confirmed By: Logan Pacheco
[2024-02-22 06:46] LABS: Hemoglobin 10.7 g/dl (12.0-16.0)
[2024-02-22 07:36] LABS: Estimated Average Glucose 143 mg/dl; Hemoglobin A1C 6.6 % (4.5-5.6)
[2024-02-22] MEDS: MONTELUKAST SODIUM 10 MG TABLET PO SCH (08:21)
[2024-02-22] MEDS: CITALOPRAM 40 MG TAB PO SCH (08:21)
[2024-02-22] MEDS: SODIUM CHLORIDE 0.9% 500 ML IV SCH (08:32)
--- NOTE | 2024-02-22 08:54 | Urology Progress Note ---
Date of Service February 22, 2024 Assessment & Plan (1) Renal colic: (2) Sepsis: (3) Hydronephrosis: (4) Calculus of proximal left ureter: Plan: Patient POD #1 status post emergent left stent placement Afebrile, hypotensive overnight Labs today reviewedcreatinine 0.95, WBC 16.87, hemoglobin 10.7 Urine culture prelim with gram-negative bacilli Blood cultures are pending Continue with broad-spectrum antibiotics and narrow per sensitivity data when available She is tolerating left ureteral stent without bother Okay to remove Ramos catheter today and monitor for void We will arrange outpatient follow-up with our service to discuss definitive stone treatment Continue antibiotics and supportive care will sign off, please contact our service with any additional questions or concerns Admission and Anticipated Discharge Date Admission Date: February 21, 2024 Subjective Patient seen and examined at bedside this morning. She is awake and resting in bed. Denies flank pain. Feeling much better today. Denies fever or chills overnight. No nausea or vomiting. Catheter intact. Review of Systems Constitutional: as per Subjective / HPI Genitourinary: as per Subjective / HPI Physical Exam Constitutional: well developed and well nourished; no acute distress Respiratory: normal respiratory effort; no respiratory distress and no labored breathing Gastrointestinal (Abdomen): Inspection/Auscultation: abdomen normal to inspection Musculoskeletal: Head/Neck/Chest: normocephalic Neurologic: moves all extremities and awake Psychiatric: Orientation: alert and oriented x 3 Results & Data Vital Signs (Past 12 Hours) Vital Signs Temp Pulse Pulse Resp BP BP Pulse Ox 02/22/24 07:11 37.2 C 87 18 99/61 L 97 02/22/24 03:20 36.4 C L 77 18 92/49 L 94 02/22/24 01:26 36.2 C L 84 17 97/59 L 93 02/22/24 00:45 36.8 C 91 H 17 91/54 L 94 02/22/24 00:31 94/55 L 02/21/24 23:05 88/50 L 02/21/24 22:41 87/46 L 02/21/24 22:22 36.8 C 94 H 16 82/43 L 95 02/21/24 21:50 89 02/21/24 21:30 36.2 C L 93 H 17 98/60 L 92 O2 Del Method 02/22/24 07:11 Room Air 02/22/24 03:20 CPAP 02/22/24 01:26 CPAP 02/22/24 00:45 Room Air 02/22/24 00:31 02/21/24 23:05 02/21/24 22:41 02/21/24 22:22 Room Air 02/21/24 21:50 02/21/24 21:30 Room Air PG Care Time/CCT Total # of Minutes Spent Total Time Spent with Patient: Total time spent is greater than 50% in coordination of care (as documented) at patient's floor/unit and/or counseling patient: Coding Level of Care Code 09746 SUB INP/OBS CARE 06/21MIN Diagnoses Renal colic N23 Sepsis A41.9 Sepsis acute organ dysfunction status: unspecified Sepsis type: sepsis due to unspecified organism Hydronephrosis N13.30 Hydronephrosis type: unspecified Calculus of proximal left ureter N20.1 (2) Sepsis Sepsis acute organ dysfunction status: unspecified Sepsis type: sepsis due to unspecified organism Qualified Code(s): A41.9 - Sepsis, unspecified organism (3) Hydronephrosis Hydronephrosis type: unspecified Qualified Code(s): N13.30 - Unspecified hydronephrosis
[2024-02-22] MEDS ORDERED: amLODIPine BESYLATE 5 MG TAB PO SCH (09:00)
--- NOTE | 2024-02-22 09:29 | XCELERA ---
[id number] \\[id number]
--- NOTE | 2024-02-22 09:35 | Hospitalist Progress Note ---
Date of Service February 22, 2024 Assessment & Plan (1) Hydronephrosis: (2) Calculus of proximal left ureter: (3) GERD (gastroesophageal reflux disease): (4) Asthma: (5) Hyperlipidemia: (6) Hypertension: (7) Depression: (8) Diabetes mellitus, type 2: Plan Assessment and plan: Acute UTI Possible urosepsis Left hydronephrosis/obstructing calculus: S/p cystoscopy/L stent placement 02/20 Patient presented with left flank pain along with fever. CT abdomen pelvis showed obstructive 6 mm calculus in left proximal ureter with moderate left-sided hydronephrosis. Underwent cystoscopy with left stent placement Urinalysis suggestive of infection Urine culture growing gram-negative bacilli Blood culture pending Will continue IV antibiotics; follow-up on final urine culture and blood culture Continue IV fluids Will need follow-up with urology for definitive stone management Hx asthma: Continue albuterol as needed, continue montelukast Hx HTN/HLD: Hold antihypertensive. Hx anxiety: Continue escitalopram Hx DM2: Hold metformin, SSI/4 times daily BGM Add Lantus as needed, Full code DVT prophylaxis: Heparin Time spent evaluating patient, direct bedside care, chart review, placing orders, interpretation of diagnostic studies, discussion with consultants, patient, and family members, as well as other required patient management activities is 50 minutes Please note the above document was generated using voice recognition software. It may contain grammatical, syntax or spelling errors. Any formal questions or concerns about the content, text or information contained within the body of this dictation should be directly addressed to the provider for clarification Admission and Anticipated Discharge Date Admission Date: February 21, 2024 Subjective Patient seen at bedside. She reports that she is feeling much better compared to yesterday. Blood pressure continues to be on lower side overnight; required IV boluses. She is alert oriented x 3. Ramos is draining clear urine Review of Systems Review of Systems: All systems reviewed & are unremarkable except as noted in Subjective Physical Exam Physical Exam: Constitutional: Alert oriented x 3; appears tired. Answering question appropriately Respiratory: normal respiratory effort, lungs clear to auscultation, no wheeze, rales, rhonchi. Normal insp/exp effort, no accessory muscle use Cardiovascular: RRR, no murmur, no edema Vessels: no JVD or carotid bruit Chest: normal inspection of chest Abdomen: Soft, nontender. Ramos in place draining clear urine Musculoskeletal: no cyanosis or clubbing, extremities motor strength 5/5 Skin: no rashes, warm and dry normal turgor Neurologic: PERRL, EOMI, accommodation nl, no face palsy, no dysarthria CN's II- XI intact bilaterally and moves all extremities Psychiatric: A+Ox3, euthymic affect Results & Data Results & Data Vital Signs (Past 12 Hours) Vital Signs Temp Pulse Pulse Resp BP BP Pulse Ox 02/22/24 07:11 37.2 C 87 18 99/61 L 97 02/22/24 03:20 36.4 C L 77 18 92/49 L 94 02/22/24 01:26 36.2 C L 84 17 97/59 L 93 02/22/24 00:45 36.8 C 91 H 17 91/54 L 94 02/22/24 00:31 94/55 L 02/21/24 23:05 88/50 L 02/21/24 22:41 87/46 L 02/21/24 22:22 36.8 C 94 H 16 82/43 L 95 02/21/24 21:50 89 02/21/24 21:30 36.2 C L 93 H 17 98/60 L 92 O2 Del Method 02/22/24 07:11 Room Air 02/22/24 03:20 CPAP 02/22/24 01:26 CPAP 02/22/24 00:45 Room Air 02/22/24 00:31 02/21/24 23:05 02/21/24 22:41 02/21/24 22:22 Room Air 02/21/24 21:50 02/21/24 21:30 Room Air (1) Hydronephrosis Hydronephrosis type: unspecified Qualified Code(s): N13.30 - Unspecified hydronephrosis
[2024-02-22] MEDS: POTASSIUM CHLORIDE PWD 20 MEQ PACK PO SCH (12:54)
[2024-02-22] MEDS ORDERED: cefTRIAXone SODIUM 2,000 MG/50 ML BAG IV SCH (13:00)
[2024-02-22] MEDS ORDERED: CEFEPIME 2,000 MG in SYRINGE 0 ML IV SCH (15:00)
[2024-02-22] MEDS: HEPARIN SOD 5,000 UNIT/0.5 ML VIAL SQ SCH (21:09)
[2024-02-22] MEDS: ALBUTEROL 0.083% NEBU SOLN 3 ML VIAL INH PRN (21:56)
--- NOTE | 2024-02-22 22:19 | Electrocardiogram Report ---
Test Reason : Blood Pressure : */* mmHG Vent. Rate : 85 BPM Atrial Rate : 85 BPM P-R Int : 132 ms QRS Dur : 82 ms QT Int : 382 ms P-R-T Axes : 55 41 30 degrees QTcB Int : 454 ms Poor data quality, interpretation may be adversely affected Normal sinus rhythm Normal ECG When compared with ECG of 21-Feb-2024 15:28, ST no longer depressed in Inferolateral leads Confirmed by Logan Pacheco ([id number]) on 02/22/2024 10:18:52 PM Referred By: REFERRED SELF Confirmed By: Logan Pacheco
[2024-02-23] MEDS: ONDANSETRON INJ 2 MG/ML 2 ML VIAL IV PRN (00:27)
[2024-02-23] MEDS: LACTATED RINGER'S 1,000 ML IV ONE (01:38)
[2024-02-23] MEDS: ACETAMINOPHEN 325 MG TAB PO STA (01:38)
[2024-02-23 08:01] LABS: ANC (manual) 15.42 K/uL (1.4-6.5); Dohle Bodies 1+; Echinocytes 1+; Eosinophils # (manual) 0.17 K/uL (0-0.50); Eosinophils % (manual) 1 %; Hematocrit (blood only) 29.3 % (37.0-47.0); Hemoglobin 9.8 g/dl (12.0-16.0); Lymphocytes % (manual) 3 %; Mean Corpuscular Hemoglobin 29.3 pg (25.0-34.0); Mean Corpuscular Hgb Conc 33.4 g/dL (32.0-36.0); Mean Corpuscular Volume 87.7 fL (80.0-100.0); Mean Platelet Volume 10.9 fL (9.4-12.4); Monocytes % (manual) 3 %; Neutrophils # (manual) 15.42 K/uL (1.40-6.50); Neutrophils % (manual) 93 %; Platelet Count 113 K/uL (130-400); RDW Coefficient of Variation 14.6 % (11.5-14.5); Red Blood Count 3.34 M/uL (4.20-5.40); White Blood Count 16.58 K/ul (4.8-10.8)
[2024-02-23 08:13] LABS: Calcium 8.3 mg/dl (8.6-10.3); Creatinine Clr Calc Pharmacy 80.6 ml/min; Est GFR (African American) 101.9 ml/min; Est GFR (Non-African American) 87.9 ml/min; Potassium 5.1 mmol/L (3.5-5.1)
[2024-02-23] MEDS: cefTRIAXone SODIUM 2,000 MG/50 ML BAG IV SCH (08:41)
--- NOTE | 2024-02-23 08:54 | Hospitalist Progress Note ---
Date of Service February 23, 2024 Assessment & Plan (1) Hydronephrosis: (2) Calculus of proximal left ureter: (3) GERD (gastroesophageal reflux disease): (4) Asthma: (5) Hyperlipidemia: (6) Hypertension: (7) Depression: (8) Diabetes mellitus, type 2: Plan Assessment and plan: Acute UTI Possible urosepsis Left hydronephrosis/obstructing calculus: S/p cystoscopy/L stent placement 02/20 Patient presented with left flank pain along with fever. CT abdomen pelvis showed obstructive 6 mm calculus in left proximal ureter with moderate left-sided hydronephrosis. Underwent cystoscopy with left stent placement Urinalysis suggestive of infection E. coli; sensitive to ceftriaxone and ciprofloxacin Blood cultureno growth Continue IV antibiotics; cefepime changed to ceftriaxone based on sensitivities results Encourage p.o. intake Remove Ramos Will need follow-up with urology for definitive stone management Hx asthma: Continue albuterol as needed, continue montelukast Hx HTN/HLD: Hold antihypertensive. Hx anxiety: Continue escitalopram Hx DM2: Hold metformin, SSI/4 times daily BGM Add Lantus as needed, Full code DVT prophylaxis: Heparin Time spent evaluating patient, direct bedside care, chart review, placing orders, interpretation of diagnostic studies, discussion with consultants, patient, and family members, as well as other required patient management activities is 50 minutes Please note the above document was generated using voice recognition software. It may contain grammatical, syntax or spelling errors. Any formal questions or concerns about the content, text or information contained within the body of this dictation should be directly addressed to the provider for clarification Admission and Anticipated Discharge Date Admission Date: February 21, 2024 Subjective Patient seen and examined at bedside She is comfortable; not in distress No significant events overnight Denies fever, chills, chest pain or shortness of breath Review of Systems Review of Systems: All systems reviewed & are unremarkable except as noted in Subjective Physical Exam Physical Exam: Constitutional: Alert oriented x 3; appears tired. Answering question appropriately Respiratory: normal respiratory effort, lungs clear to auscultation, no wheeze, rales, rhonchi. Normal insp/exp effort, no accessory muscle use Cardiovascular: RRR, no murmur, no edema Vessels: no JVD or carotid bruit Chest: normal inspection of chest Abdomen: Soft, nontender. Ramos in place draining clear urine Musculoskeletal: no cyanosis or clubbing, extremities motor strength 5/5 Skin: no rashes, warm and dry normal turgor Neurologic: PERRL, EOMI, accommodation nl, no face palsy, no dysarthria CN's II- XI intact bilaterally and moves all extremities Psychiatric: A+Ox3, euthymic affect Results & Data Results & Data Vital Signs (Past 12 Hours) Vital Signs Temp Pulse Pulse Resp BP BP Pulse Ox 02/23/24 07:58 36.4 C L 68 18 135/75 97 02/23/24 03:00 36.8 C 71 17 131/70 97 02/22/24 23:30 37.1 C 02/22/24 23:24 81 16 107/46 L 96 02/22/24 22:00 88 26 H 98 02/22/24 21:59 88 18 98 02/22/24 21:48 86 O2 Del Method FiO2 02/23/24 07:58 Room Air 02/23/24 03:00 CPAP 02/22/24 23:30 02/22/24 23:24 Room Air 02/22/24 22:00 21 02/22/24 21:59 CPAP 21 02/22/24 21:48 (1) Hydronephrosis Hydronephrosis type: unspecified Qualified Code(s): N13.30 - Unspecified hydronephrosis
[2024-02-23] MEDS: FAMOTIDINE 20 MG TAB PO PRN (22:12)
[2024-02-24] MEDS: SIMETHICONE 80 MG CHEW PO ONE (01:19)
[2024-02-24 07:38] LABS: BUN Creatinine Ratio 25.4 (10-20); Calcium 8.7 mg/dl (8.6-10.3); Creatinine Clr Calc Pharmacy 87.4 ml/min; Est GFR (African American) 104.6 ml/min; Est GFR (Non-African American) 90.3 ml/min; Potassium 4.5 mmol/L (3.5-5.1)
[2024-02-24 08:00] LABS: Basophils # (auto) 0.09 K/uL (0.00-0.20); Basophils % (auto) 0.5 %; Echinocytes 1+; Eosinophils # (auto) 0.07 K/uL (0.00-0.50); Eosinophils % (auto) 0.4 %; Hemoglobin 10.5 g/dl (12.0-16.0); Immature Granulocytes % (auto) 0.6 %; Lymphocytes # (auto) 2.05 K/uL (1.20-3.40); Lymphocytes % (auto) 12.1 %; Mean Corpuscular Hemoglobin 29.2 pg (25.0-34.0); Mean Corpuscular Hgb Conc 32.8 g/dL (32.0-36.0); Mean Corpuscular Volume 89.1 fL (80.0-100.0); Mean Platelet Volume 11.2 fL (9.4-12.4); Monocytes # (auto) 0.74 K/uL (0.11-0.59); Monocytes % (auto) 4.4 %; Neutrophils # (auto) 13.92 K/uL (1.40-6.50); Ovalocytes 1+; Platelet Count 125 K/uL (130-400); RDW Coefficient of Variation 14.5 % (11.5-14.5); RDW Standard Deviation 46.9 fL (36.4-46.3); Red Blood Count 3.59 M/uL (4.20-5.40); White Blood Count 16.97 K/ul (4.8-10.8)
--- NOTE | 2024-02-24 10:50 | Hospitalist Progress Note ---
Date of Service February 24, 2024 Assessment & Plan (1) Hydronephrosis: (2) Calculus of proximal left ureter: (3) GERD (gastroesophageal reflux disease): (4) Asthma: (5) Hyperlipidemia: (6) Hypertension: (7) Depression: (8) Diabetes mellitus, type 2: Plan Assessment and plan: Acute UTI Possible urosepsis Left hydronephrosis/obstructing calculus: S/p cystoscopy/L stent placement 02/20 Patient presented with left flank pain along with fever. CT abdomen pelvis showed obstructive 6 mm calculus in left proximal ureter with moderate left-sided hydronephrosis. Underwent cystoscopy with left stent placement Urinalysis suggestive of infection E. coli; sensitive to ceftriaxone and ciprofloxacin Blood cultureno growth Continue IV antibiotics; Encourage p.o. intake PT OT evaluation Will need follow-up with urology for definitive stone management Hx asthma: Continue albuterol as needed, continue montelukast Hx HTN/HLD: Hold antihypertensive. Hx anxiety: Continue escitalopram Hx DM2: Hold metformin, SSI/4 times daily BGM Add Lantus as needed, Full code DVT prophylaxis: Heparin Dispositionadmitted for acute UTI requiring IV antibiotics. PT OT evaluation today; possible discharge tomorrow a.m. Please note the above document was generated using voice recognition software. It may contain grammatical, syntax or spelling errors. Any formal questions or concerns about the content, text or information contained within the body of this dictation should be directly addressed to the provider for clarification Admission and Anticipated Discharge Date Admission Date: February 21, 2024 Subjective She reports that she is feeling much better compared to previous days Her Ramos catheter has been taken out and she is voiding independently She is requiring a walker due to generalized fatigue/tiredness No significant events overnight Review of Systems Review of Systems: All systems reviewed & are unremarkable except as noted in Subjective Physical Exam Physical Exam: Constitutional: Alert oriented x 3; comfortable Respiratory: normal respiratory effort, lungs clear to auscultation, no wheeze, rales, rhonchi. Normal insp/exp effort, no accessory muscle use Cardiovascular: RRR, no murmur, no edema Vessels: no JVD or carotid bruit Chest: normal inspection of chest Abdomen: Soft, nontender. Musculoskeletal: no cyanosis or clubbing, extremities motor strength 5/5 Skin: no rashes, warm and dry normal turgor Neurologic: PERRL, EOMI, accommodation nl, no face palsy, no dysarthria CN's II- XI intact bilaterally and moves all extremities Psychiatric: A+Ox3, euthymic affect Results & Data Results & Data Vital Signs (Past 12 Hours) Vital Signs Temp Pulse Pulse Resp BP Pulse Ox O2 Del Method 02/24/24 07:58 36.6 C 76 18 136/76 94 Room Air 02/24/24 03:15 72 23 99 02/24/24 03:03 36.8 C 63 19 127/66 98 CPAP 02/23/24 22:52 66 FiO2 02/24/24 07:58 02/24/24 03:15 21 02/24/24 03:03 02/23/24 22:52 (1) Hydronephrosis Hydronephrosis type: unspecified Qualified Code(s): N13.30 - Unspecified hydronephrosis
[2024-02-24] MEDS: SIMETHICONE 80 MG CHEW PO PRN (21:25)
[2024-02-24] MEDS: ACETAMINOPHEN 325 MG TAB PO PRN (21:25)
[2024-02-25 06:58] LABS: Basophils # (auto) 0.07 K/uL (0.00-0.20); Basophils % (auto) 0.7 %; Eosinophils # (auto) 0.14 K/uL (0.00-0.50); Eosinophils % (auto) 1.4 %; Hematocrit (blood only) 32.2 % (37.0-47.0); Hemoglobin 10.5 g/dl (12.0-16.0); Lymphocytes # (auto) 2.27 K/uL (1.20-3.40); Lymphocytes % (auto) 22.4 %; Mean Corpuscular Hemoglobin 28.8 pg (25.0-34.0); Mean Corpuscular Hgb Conc 32.6 g/dL (32.0-36.0); Mean Corpuscular Volume 88.2 fL (80.0-100.0); Mean Platelet Volume 11.2 fL (9.4-12.4); Monocytes # (auto) 0.81 K/uL (0.11-0.59); Neutrophils # (auto) 6.56 K/uL (1.40-6.50); Neutrophils % (auto) 64.5 %; Platelet Count 158 K/uL (130-400); RDW Coefficient of Variation 14.3 % (11.5-14.5); RDW Standard Deviation 46.5 fL (36.4-46.3); Red Blood Count 3.65 M/uL (4.20-5.40); White Blood Count 10.15 K/ul (4.8-10.8)
[2024-02-25 07:25] VITALS: BP 147/75; RESP 18; TEMP 98.4; O2SAT 92
[2024-02-25 07:32] LABS: BUN Creatinine Ratio 20.3 (10-20); Calcium 8.8 mg/dl (8.6-10.3); Creatinine Clr Calc Pharmacy 74.8 ml/min; Est GFR (African American) 99.4 ml/min; Est GFR (Non-African American) 85.8 ml/min; Potassium 4.3 mmol/L (3.5-5.1)
--- NOTE | 2024-02-25 12:33 | Discharge Summary ---
Date of Service February 25, 2024 Admission HPI Per Admitting Provider The patient is a 73-year-old female with a past medical history of HTN, HLD, kidney stones, DM 2, suspected COPD, appendiceal tumor, mitral valve prolapse who presented to the ED on 02/21/2024 with complaints of left flank pain/fever that started last night 02/20/2024. Reports the pain has been getting worse. Patient reported that she had kidney stones in the past. She reports having trouble with bowel movement. Denies any burning with urination urgency or frequency. 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 Urology was consulted. The patient was febrile and tachycardic in the ED and vomiting. The patient denies any diarrhea/shortness of breath/chest pain. Patient did have 1 episode of nausea/vomiting in the ER. On arrival to the ED, labs are remarkable for WBC 12, lactic acid 3.4, glucose 163, total bili 1.3, procalcitonin 10.5 UA was positive for blood, nitrates, WBC and bacteria, urine and blood cultures are pending CT A/P showed an obstructing 6 mm calculus in the left proximal ureter with moderate left-sided hydronephrosis with additional nonobstructing calculus seen in the left lower pole. EKG showed sinus tachycardia The patient was given IV fluids, Rocephin, Zofran and morphine in the ED. The patient was then taken to the OR for cystoscopy, left retrograde pyelogram, left stent placement She will be admitted to hospital for further management Admission Exam Per Admitting Provider Constitutional: WD/WN, vitals as above Eyes: PERRL, conjunctivae normal, anicteric sclerae ENMT: external ear and nose normal, oropharynx normal Neck: trachea midline, no thyromegaly Respiratory: normal respiratory effort, lungs clear to auscultation Cardiovascular: RRR, no murmur, no edema Gastrointestinal (Abdomen): normal bowel sounds, soft, nontender, no hepatosplenomegaly Percussion/Palpation: + abdomen tender (Left-sided flank pain); no guarding and abdomen not rigid Musculoskeletal: no cyanosis or clubbing, extremities motor strength 5/5 Skin: no rashes, warm and dry Neurologic: patellar DTR's 2+ bilat, sensation intact Psychiatric: A+Ox3, euthymic affect Principal Diagnosis Acute UTI Possible urosepsis Left hydronephrosis/obstructing calculus: S/p cystoscopy/L stent placement 02/20 Discharge Exam Constitutional: Alert oriented x 3; comfortable Respiratory: normal respiratory effort, lungs clear to auscultation, no wheeze, rales, rhonchi. Normal insp/exp effort, no accessory muscle use Cardiovascular: RRR, no murmur, no edema Vessels: no JVD or carotid bruit Chest: normal inspection of chest Abdomen: Soft, nontender. Musculoskeletal: no cyanosis or clubbing, extremities motor strength 5/5 Skin: no rashes, warm and dry normal turgor Neurologic: PERRL, EOMI, accommodation nl, no face palsy, no dysarthria CN's II- XI intact bilaterally and moves all extremities Psychiatric: A+Ox3, euthymic affect Discharge Data Allergies Allergy/AdvReac Type Severity Reaction Status Date / Time Sulfa (Sulfonamide Allergy Unknown SOB, Verified 11/20/23 09:37 Antibiotics) Systemic rash SULFATE WITH CHEAP FLIP FLOPS Allergy Unknown I BREAK OUT Uncoded 11/20/23 09:37 Consultations 02/21/24 14:03 ED Decision to Admit Stat 02/21/24 14:07 Consult Urology Stat Procedures Performed Operation Date: 02/21/24 10:50 Actual Procedures p Cystoscopy, Left Retrograde Pyelogram, Left Stent Placement(Left) - Manoj Abdi MD Ordered Studies 02/21/24 [place] retrograde includes kub Routine 02/21/24 11:30 CT abd pelvis IV con only Stat Hospital Course (1) Hydronephrosis: (2) Calculus of proximal left ureter: (3) GERD (gastroesophageal reflux disease): (4) Asthma: (5) Hyperlipidemia: (6) Hypertension: (7) Depression: (8) Diabetes mellitus, type 2: Plan Assessment and plan: Acute UTI Possible urosepsis Left hydronephrosis/obstructing calculus: S/p cystoscopy/L stent placement 02/20 Patient presented with left flank pain along with fever. CT abdomen pelvis showed obstructive 6 mm calculus in left proximal ureter with moderate left-sided hydronephrosis. Underwent cystoscopy with left stent placement Urinalysis suggestive of infection E. coli; sensitive to ceftriaxone and ciprofloxacin Blood cultureno growth Patient was treated with IV antibiotics during the hospitalization. Patient reported improvement in the symptoms; was afebrile; blood pressure improved throughout the hospitalization. She was discharged on oral antibiotics with instructions to follow-up with urology for definitive stone management. Please note the above document was generated using voice recognition software. It may contain grammatical, syntax or spelling errors. Any formal questions or concerns about the content, text or information contained within the body of this dictation should be directly addressed to the provider for clarification Total Time Total Time Spent Total Time Spent (In Minutes): 35 Total Time Includes: Examination of the Patient, Discharge Planning, Medication Reconciliation, Communication With Other Providers and Other Discharge Plan Discharge Items Patient Disposition: Home - Self-Care Reason For Visit: UTI, HYDRONEPHROSIS Discharge Diagnosis: Acute UTI Activity: Resume your previous activity Non-emergency contact: Primary Care Provider Call non-emergency contact if: you have any medication questions and your symptoms worsen Follow-up/Referrals: Brenda Callahan CRNP [Nurse Practitioner] - (The Urology office will contact you for a follow up appointment.) Marie Gould MD [Primary Care Provider] - (Date & Time 03/04/2024 1:30 PM Provider Otoniel Potts MD Department [facility] ) Diet: Regular Addtl Attending Provider Instructions: You were admitted to the hospital due to stone in left proximal ureter for which you had a stent placement. You were also found to have urinary tract infection. You are prescribed ciprofloxacin 500 mg twice a day for 5 days to complete the antibiotic course. You are also prescribed tamsulosin 0.4 mg to be taken at night. You will receive a call from urology office for follow-up. Pending Studies at Discharge: No Stand-Alone Forms: My [employer], Smoking Cessation Medications and DC Order Prescriptions: New ciprofloxacin HCl 500 mg tablet 500 mg PO BID 5 Days Qty: 10 0RF tamsulosin 0.4 mg Capsule 0.4 mg PO HS 21 Days Qty: 21 0RF simethicone [Gas Relief (simethicone)] 80 mg Tablet,Chewable 80 mg PO Q8H PRN (Reason: abdominal distention) Qty: 60 0RF Continued albuterol sulfate 90 mcg/actuation HFA aerosol inhaler 2 inh inhalation Q6H Qty: 8.5 5RF albuterol sulfate 2.5 mg /3 mL (0.083 %) solution for nebulization 2.5 mg INHALATION Q4 PRN (Reason: cough/sob) Qty: 180 11RF montelukast 10 mg tablet 10 mg PO QAM Qty: 90 3RF Align 4 mg capsule 4 mg PO HS Qvar RediHaler 80 mcg/actuation HFA aerosol breath activated 2 inh INH BID Qty: 10.6 11RF famotidine 20 mg tablet 20 mg PO DAILY PRN (Reason: Heartburn) nitroglycerin 0.4 mg tablet, sublingual 0.4 mg sublingual UD PRN (Reason: Angina) Qty: 30 3RF Patient Comments: LAST USE 2014 OR 2015 atorvastatin 20 mg Tablet 20 mg PO HS citalopram 40 mg Tablet 40 mg PO QAM trazodone 50 mg Tablet 12.5 mg PO HS PRN (Reason: Insomnia) amlodipine 5 mg Tablet 2.5 mg PO QAM lisinopril 2.5 mg Tablet 2.5 mg PO HS prednisolone acetate [Pred Forte] 1 % drops,suspension 1 drp OPB QPM simethicone 80 mg Tablet,Chewable 80 mg PO UD PRN (Reason: GAS) Patient Comments: OUT OF IT RIGHT NOW Metamucil (sugar) Powder 1 tsp PO UD PRN (Reason: BOWEL REGULARITY ) Cholestyramine Light 4 gram Powder 4 g PO BID Patient Comments: NOT ALWAYS / HAVEN'T BEEN TAKING IN MORE THAN A MONTH Rx Instructions: administer w/meal; avoid other meds within 1hr before or 4-6hr after dose metformin 500 mg Tablet 500 mg PO DAILY Qty: 60 0RF Discharge Orders: Discharge Order (Routine); Ordered 02/25/24 Ordered By: Mike Garcia/Other Patient Handouts: Managing Type 2 Diabetes Admission Data Admit Date/Time: 02/21/24 15:43 Attending Provider: Mike Arriola Admit Provider: Sergio Carroll Primary Care Provider: Marie Gould Other Providers: Sergio Carroll; Manoj Abdi
[2024-02-25 15:27] VITALS: PULSE 99
--- NOTE | 2024-02-26 14:17 | Coding Query ---
SEPSIS To promote full compliance with coding requirements relating to patient care, physician participation is requested in all cases of manager shift uncertainty. Please assist us with the question(s) below: The medical record reflects the following clinical findings: Pt admitted with UTI,hydronephrosis and left ureteral calculus. ED & HP documented Sepsis. DS documented Urosepsis. Please check below the diagnosis that was treated during this inpatient stay. Thank you . Elia Smith [employer] [facility] ____ ( )Bacteremia (Nonspecific laboratory finding of bacteria in the blood) Specify Organism () Present on Admission ( ) Not present on admission ( ) Unable to clinically determine ( ) Septicemia (Systemic disease associated with the presence of pathogenic microorganisms in the blood): Specify Organism ( ) Present on Admission ( ) Not present on admission ( ) Unable to clinically determine (X ) Sepsis - E.coli Specify Organism Specify Associated Condition/Diagnosis ( X) Present on Admission ( ) Not present on admission ( ) Unable to clinically determine ( ) Severe Sepsis (Sepsis associated with acute organ dysfunction) Specify Organism Specify Associated Condition/Diagnosis ( ) Present on Admission ( ) Not present on admission ( ) Unable to clinically determine ( ) Septic Shock (Severe sepsis with acute circulatory failure, unexplained by other causes) ( ) Present on Admission ( ) Not present on admission ( ) Unable to clinically determine ( ) Other, patient has: MTDD
== END 2024-02-25 15:27 | disposition home health service (06) | DRG 854 ==
LOC: ED 11:07 → OR 17:27 → SUATTDRO 17:28 → 2N 17:28 → 2E 02-22 12:04

== ENCOUNTER 2024-04-02 13:19 | Inpatient (IN) ==
[2024-04-02 14:10] LABS: Appearance Urine Cloudy (Clear); Bacteria Urine Automated 4+ (None Seen); Bilirubin Urine Negative (Negative); Blood Urine 3+ (Negative); Cast Urine Automated 0-2 /lpf (0-2); Color Urine Yellow; Epithelial Cell Urine Auto 0-2 /hpf (0-2); Glucose Urine UA Negative (Negative); Ketones Urine Negative (Negative); Leukocyte Esterase Urine 3+ (Negative); Nitrite Urine Positive (Negative); Protein Urine 2+ (Negative); RBC Urine Automated >20 /hpf (0-2); Specific Gravity Urine 1.016 (1.000-1.030); Urobilinogen Urine Negative (Negative); WBC Urine Automated >50 /hpf (0-5); pH Urine 5.5 (4.5-7.5)
[2024-04-02 14:11] LABS: Basophils # (auto) 0.05 K/uL (0.00-0.20); Basophils % (auto) 0.8 %; Eosinophils # (auto) 0.06 K/uL (0.00-0.50); Hematocrit (blood only) 36.8 % (37.0-47.0); Hemoglobin 12.5 g/dl (12.0-16.0); Immature Granulocytes # (auto) 0.01 K/uL (0.01-0.20); Immature Granulocytes % (auto) 0.2 %; Lymphocytes % (auto) 21.9 %; Mean Corpuscular Hemoglobin 29.6 pg (25.0-34.0); Mean Corpuscular Volume 87.2 fL (80.0-100.0); Mean Platelet Volume 9.8 fL (9.4-12.4); Monocytes # (auto) 0.43 K/uL (0.11-0.59); Monocytes % (auto) 7.2 %; Neutrophils # (auto) 4.09 K/uL (1.40-6.50); Neutrophils % (auto) 68.9 %; Platelet Count 270 K/uL (130-400); RDW Coefficient of Variation 13.5 % (11.5-14.5); RDW Standard Deviation 42.7 fL (36.4-46.3); Red Blood Count 4.22 M/uL (4.20-5.40); White Blood Count 5.94 K/ul (4.8-10.8)
[2024-04-02 14:31] LABS: Albumin Globulin Ratio 1.3 (0.9-2); Albumin Level 4.4 gm/dl (3.4-5.0); BUN Creatinine Ratio 15.4 (10-20); Bilirubin,Total 0.9 mg/dl (0.2-1.0); Calcium 9.9 mg/dl (8.6-10.3); Creatinine Clr Calc Pharmacy 77.4 ml/min; Globulin 3.3 gm/dl (2.5-4.0); Potassium 3.7 mmol/L (3.5-5.1); Total Protein 7.7 gm/dl (6.0-8.3)
[2024-04-02 14:35] LABS: Troponin I High Sensitivity 2.5 pg/ml (0-14)
--- NOTE | 2024-04-02 14:37 | Emergency Department Note ---
Impression & Plan Complicated urinary tract infection ED Provider Note HISTORY OF PRESENT ILLNESS: Patient is a 73-year-old female presenting with palpitations, general malaise and chills. Patient reports that since she was discharged a few weeks ago from the hospital she "has not felt right." She states that she completed a course of ciprofloxacin for a urine infection and still feels generally unwell. Reports feeling very weak and rundown. She has had sensations that her heart is racing. She is post have a stent in her ureter removed or replaced tomorrow. However, she was not feeling well today, prompting presentation to the ER. Denies any nausea or vomiting. Denies any diarrhea. She reports some generalized abdominal pain. Denies any chest pain or significant shortness of breath. She reports that she just "does not feel well." ROS: as above PHYSICAL EXAM: Constitutional: Patient appears in no acute distress. HENT: Head: Normocephalic and atraumatic. Eyes: EOMI, PERRL Mouth/Throat: Mucous membranes moist. Neck: Trachea midline. Neck supple. Cardiovascular: RRR, No murmurs, rubs or gallops. Intact distal pulses. Pulmonary/Chest: No respiratory distress. Breath sounds clear and equal bilaterally. No wheezes or rales. Abdominal: Abdomen soft, no tenderness, rebound or guarding. Musculoskeletal: No edema, tenderness or deformity noted. Skin: Warm and dry. No rash, erythema, pallor or cyanosis Psychiatric: Appropriate mood and affect for situation. Neurological: Alert and keenly responsive. CN II-XII grossly intact, moving all extremities equally and fully. MDM: - Vitals signs showed tachycardia - History obtained via patient. History as above. - Chronic conditions affecting care: HTN; HLD; kidney stones; DM-2; COPD; appendiceal tumor; mitral valve prolapse - Differential diagnoses include, but are not limited to: UTI; pneumonia; viral syndrome; electrolyte abnormality; ACS - Order placed for continuous cardiac monitoring. At this time, monitor showed rate of 73 bpm with normal sinus rhythm, per my interpretation. - External medical records reviewed. Discharge summary dated 01/29/2024 was reviewed. Patient was admitted for urosepsis secondary to a UTI and was found to have left hydronephrosis and an obstructive calculus. She is status post cystoscopy with left stent placement on 02/21/2024. - EKG interpreted by myself showed normal sinus rhythm. Rate 81 bpm. QT 354. No acute ischemic changes. - Laboratory workup interpreted by myself showed normal WBC; normal PT/INR; stable electrolytes; normal troponin; ; normal lipase; normal lactate; normal procalcitonin - UA showed evidence of infection. Given 2g IV rocephin. Patient's previous urine culture dated 02/21/2024 grew E. coli that was sensitive to everything except ampicillin. - CT abdomen/pelvis with IV contrast showed "interval placement of left ureteral stent with resolution of left hydronephrosis. Few nonobstructing left renal calculi remonstrated." - Discussed case with urology [facility] on-call, Brenda Callahan PA-C, at 15:45. Patient is supposed to have stone removal tomorrow. However, [facility] reports that her surgery might get canceled in setting of her UTI. Reports that patient's urologist, Dr. Abdi, reports that if her urine looks the way it does and she is having the symptoms, probably best to reschedule her procedure. Recommend that if patient is having the symptoms she may benefit from IV antibiotics inpatient - Discussed results with the patient. She does not feel comfortable going home, given her symptoms. Will admit to hospitalist service. - Discussion was had with case consultant about patient's case and need for admission - Hospitalist, Dr. Carroll, consulted for admission - Patient admitted to [facility] hospitalist service for further evaluation and management. ASSESSMENT AND PLAN: Diagnosis: complicated UTI Plan: admit Past Med/Surg History Problem List (Updated 04/02/24 @ 18:22 by Ying Ruiz MD) Complicated urinary tract infection (Acute) Renal colic (Acute) Sepsis (Acute) Calculus of proximal left ureter Encounter for pre-operative examination Shortness of breath Asthma GERD (gastroesophageal reflux disease) Diabetes mellitus, type 2 (Chronic) Panic attacks (Chronic) REMOTE HX Anxiety (Chronic) Depression (Chronic) Hypertension (Chronic) Hyperlipidemia (Chronic) Mitral valve prolapse (Chronic) PVC's (premature ventricular contractions) (Chronic) Sleep apnea (Chronic) cpap Medical History Alternating constipation and diarrhea GERD (gastroesophageal reflux disease) Hx of shortness of breath pt denies at this time / Follows Dr Lemus Hx of sepsis 9/26/24 [facility] er Sleep apnea C-PAP Kidney stones Mitral valve prolapse [facility] Cardiology Dr Frye most recent echo 02/19/24 Hypertension Hyperlipidemia Diabetes mellitus, type 2 oral Asthma prn inhaler Depression patient prefers not to discuss Anxiety patient prefers not to discuss History of low potassium s/b bowel sx (hospitalized [facility] few years ago) Fecal urgency intermittent History of anesthesia reaction Hypotension 80/30 after procedure 02/21/24 [facility] as per patient [place] [facility] Cardio Dr Frye "PVC's" as per patient 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 It is considered environmental." History of colon polyps Stable angina [facility] Cardiology Dr Frye Surgical History Hx of esophagogastroduodenoscopy 2021 Hx of cystoscopy with stent - 02/21/24 [facility] History of bowel resection History of cardiac cath x2 at least most recent 2014 - no stents Status post laparotomy "appendiceal tumor" History of hemicolectomy 11/26/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 History of wisdom tooth extraction History of left inguinal hernia repair History of section Family History Grandmother (Maternal) Family hx of colon cancer Father Family history of diabetes mellitus Sister Family history of colonic polyps Grandfather (Maternal) Family history of diabetes mellitus Social History Smoking Status: Never smoker Second Hand Exposure: No; Do You Dip or Chew Tobacco: No; Hx Alcohol Use: No Hx Substance Use: No Preferred Language: Egyptian Communication Ability: Effective Visual Impairment: No Limitations Hearing Ability: Normal Rotoprinter Required: No Beliefs That Will Affect Care: None marital status: Current Living Situation: Family Current Living Situation Comment: lives at home with and adult daughter How many Children do You have: 1 Feels Safe at Home: Yes caffeine: No (uses decaf tea and coffee) Do you think of yourself as: straight/heterosexual Gender Identity: Female Assistive Devices: CPAP Allergies Allergies Allergy/AdvReac Type Severity Reaction Status Date / Time Sulfa (Sulfonamide Allergy Intermediate SOB, Verified 03/21/24 10:24 Antibiotics) Systemic rash morphine AdvReac Intermediate Tachycardia Verified 03/21/24 10:24 /Fever/Chil ls/Vomiting SULFATE WITH CHEAP FLIP FLOPS Allergy Unknown I break out Uncoded 03/21/24 10:24 Home Meds Home Medications Medication Instructions Recorded Confirmed amlodipine 5 mg tablet 2.5 mg PO QAM 10/25/18 04/02/24 atorvastatin 20 mg tablet 20 mg PO HS 10/25/18 04/02/24 citalopram 40 mg tablet 40 mg PO QAM 10/25/18 04/02/24 lisinopril 2.5 mg tablet 2.5 mg PO HS 10/25/18 04/02/24 trazodone 50 mg tablet 12.5 mg PO HS PRN Insomnia 10/25/18 04/02/24 prednisolone acetate 1 % eye 1 drp OPB QPM 12/03/18 04/02/24 drops,suspension (Pred Forte) Bifidobacterium infantis 4 mg 4 mg PO HS 08/09/20 04/02/24 capsule (Align) cholestyramine-aspartame 4 gram 4 g PO BID 03/17/22 04/02/24 oral powder (Cholestyramine Light) psyllium seed (sugar) oral powder 1 tsp PO UD PRN BOWEL REGULARITY 03/17/22 04/02/24 (Metamucil (sugar) oral powder) famotidine 20 mg tablet 20 mg PO DAILY PRN Heartburn 06/22/23 04/02/24 metformin 500 mg tablet 500 mg PO BID 03/21/24 04/02/24 Previous Rx's Medication Instructions Recorded nitroglycerin 0.4 mg sublingual 0.4 mg sublingual UD PRN Angina 11/20/23 tablet #30 tabs simethicone 80 mg chewable tablet 80 mg PO Q8H PRN abdominal 02/25/24 (Gas Relief (simethicone)) distention #60 tabs albuterol sulfate 2.5 mg/3 mL 2.5 mg (3 mL) inhalation Q4 PRN 03/04/24 (0.083 %) solution for nebulization cough/sob #180 mL albuterol sulfate 90 mcg/actuation 2 inh inhalation Q6H #8.5 grams 03/04/24 aerosol inhaler beclomethasone dipropionate 80 2 inh inhalation BID #10.6 grams 03/04/24 mcg/actuation HFA breath activated aerosol (Qvar RediHaler) montelukast 10 mg tablet 10 mg PO QAM #90 tabs 03/04/24 tamsulosin 0.4 mg capsule (Flomax) 0.4 mg PO DAILY kidney stone #30 03/17/24 caps Results & Data (ED) Vital Signs Vital Signs - 24 hr 04/02/24 13:22 04/02/24 14:09 04/02/24 15:17 Temperature 36.9 C Temperature Source Temporal Artery Scan Pulse Rate 107 H 76 Pulse Rate [Right Brachial] Pulse Rhythm [Right Brachial] Pulse Strength [Right Brachial] Respiratory Rate 12 Respiratory Effort / Characteristics Respiratory Depth Normal Respiratory Pattern Blood Pressure 115/64 Blood Pressure [Right Arm] Blood Pressure Mean 81 Blood Pressure Mean [Right Arm] Pulse Oximetry 96 98 Oxygen Delivery Method Room Air Room Air Sepsis Recent Fever Within 48 Hours No Sepsis New/Unexplained Change in Mental Status N/A Sepsis Action Taken by Nursing No Action Required 04/02/24 15:29 04/02/24 17:00 Temperature Temperature Source Pulse Rate Pulse Rate [Right Brachial] 73 73 Pulse Rhythm [Right Brachial] Regular Regular Pulse Strength [Right Brachial] Normal Normal Respiratory Rate 18 18 Respiratory Effort / Characteristics Non-Labored Non-Labored Respiratory Depth Normal Normal Respiratory Pattern Regular Blood Pressure Blood Pressure [Right Arm] 116/64 144/77 H Blood Pressure Mean Blood Pressure Mean [Right Arm] 81 99 Pulse Oximetry 95 98 Oxygen Delivery Method Room Air Room Air Sepsis Recent Fever Within 48 Hours Sepsis New/Unexplained Change in Mental Status Sepsis Action Taken by Nursing Laboratory Data 04/02/24 13:50 04/02/24 13:50 Lab Results 04/02/24 04/02/24 Range/Units 13:44 13:50 WBC 5.94 (4.8-10.8) K/ul RBC 4.22 (4.20-5.40) M/uL Hgb 12.5 (12.0-16.0) g/dl Hct 36.8 L (37.0-47.0) % MCV 87.2 (80.0-100.0) fL MCH 29.6 (25.0-34.0) pg MCHC 34.0 (32.0-36.0) g/dL RDW Std Deviation 42.7 (36.4-46.3) fL RDW Coeff of Radha 13.5 (11.5-14.5) % Plt Count 270 (130-400) K/uL MPV 9.8 (9.4-12.4) fL Immature Gran % (Auto) 0.2 % Neut % (Auto) 68.9 % Lymph % (Auto) 21.9 % Oliver % (Auto) 7.2 % Eos % (Auto) 1.0 % Baso % (Auto) 0.8 % Neut # (Auto) 4.09 (1.40-6.50) K/uL Lymph # (Auto) 1.30 (1.20-3.40) K/uL Oliver # (Auto) 0.43 (0.11-0.59) K/uL Eos # (Auto) 0.06 (0.00-0.50) K/uL Baso # (Auto) 0.05 (0.00-0.20) K/uL Immature Gran # (Auto) 0.01 (0.01-0.20) K/uL PT 10.9 (9.0-12.0) Seconds INR 1.0 (0.9-1.1) Sodium 138 (136-145) mmol/L Potassium 3.7 (3.5-5.1) mmol/L Chloride 101 (98-107) mmol/L Carbon Dioxide 29 (21-32) mmol/L Anion Gap 8 (3-11) BUN 10 (6-23) mg/dl Creatinine 0.65 (0.6-1.2) mg/dl Est Cr Clr Drug Dosing 77.4 ml/min eGFR 92.33 BUN/Creatinine Ratio 15.4 (10-20) Glucose 146 H (70-99(Fasting)) mg/dl Lactate 1.0 (0.4-2.0) mmol/L Calcium 9.9 (8.6-10.3) mg/dl Total Bilirubin 0.9 (0.2-1.0) mg/dl AST 19 (13-39) U/L ALT 17 (7-52) U/L Alkaline Phosphatase 66 (34-104) U/L Troponin I High Sens 2.5 (0-14) pg/ml Total Protein 7.7 (6.0-8.3) gm/dl Albumin 4.4 (3.4-5.0) gm/dl Globulin 3.3 (2.5-4.0) gm/dl Albumin/Globulin Ratio 1.3 (0.9-2) Lipase 26 (11-82) U/L Procalcitonin < 0.02 (0-0.5) ng/ml Urine Color Yellow Urine Appearance Cloudy A (Clear) Urine pH 5.5 (4.5-7.5) Ur Specific Rover 1.016 (1.000-1.030) Urine Protein 2+ H (Negative) Urine Glucose (UA) Negative (Negative) Urine Ketones Negative (Negative) Urine Blood 3+ H (Negative) Urine Nitrite Positive A (Negative) Urine Bilirubin Negative (Negative) Urine Urobilinogen Negative (Negative) Ur Leukocyte Esterase 3+ H (Negative) Urine WBC (Auto) >50 H (0-5) /hpf Urine RBC (Auto) >20 H (0-2) /hpf U Hyaline Cast (Auto) 0-2 (0-2) /lpf U Epithel Cells (Auto) 0-2 (0-2) /hpf Urine Bacteria (Auto) 4+ H (None Seen) Administered Medications Discontinued Medications Ceftriaxone Sodium (Rocephin) 2,000 mg in 50 mls @ 100 mls/hr IV NOW STA Stop: 04/02/24 16:18 Last Infusion: 04/02/24 16:41 Dose: Infused Documented By: Admin: 04/02/24 15:57 Dose: 100 mls/hr Documented By: CONCHIS Discharge Plan Visit Data Chief Complaint: Illness Stated Complaint: ALLERGIC REACT/MORPHINE, SOB, PALPITATIONS, SEPSIS ED Provider: Ying Ruiz Discharge Problem: Complicated urinary tract infection Forms Stand Alone Forms: My [facility] Prescriptions Prescriptions: No Action albuterol sulfate 90 mcg/actuation HFA aerosol inhaler 2 inh inhalation Q6H Qty: 8.5 5RF albuterol sulfate 2.5 mg /3 mL (0.083 %) solution for nebulization 2.5 mg INHALATION Q4 PRN (Reason: cough/sob) Qty: 180 11RF Qvar RediHaler 80 mcg/actuation HFA aerosol breath activated 2 inh INH BID Qty: 10.6 11RF montelukast 10 mg tablet 10 mg PO QAM Qty: 90 3RF Align 4 mg capsule 4 mg PO HS famotidine 20 mg tablet 20 mg PO DAILY PRN (Reason: Heartburn) nitroglycerin 0.4 mg tablet, sublingual 0.4 mg sublingual UD PRN (Reason: Angina) Qty: 30 3RF Patient Comments: LAST USE 2014 OR 2015 tamsulosin [Flomax] 0.4 mg capsule 0.4 mg PO DAILY Qty: 30 0RF atorvastatin 20 mg Tablet 20 mg PO HS citalopram 40 mg Tablet 40 mg PO QAM trazodone 50 mg Tablet 12.5 mg PO HS PRN (Reason: Insomnia) amlodipine 5 mg Tablet 2.5 mg PO QAM lisinopril 2.5 mg Tablet 2.5 mg PO HS prednisolone acetate [Pred Forte] 1 % drops,suspension 1 drp OPB QPM Metamucil (sugar) Powder 1 tsp PO UD PRN (Reason: BOWEL REGULARITY ) Cholestyramine Light 4 gram Powder 4 g PO BID Patient Comments: NOT ALWAYS / HAVEN'T BEEN TAKING IN MORE THAN A MONTH Rx Instructions: administer w/meal; avoid other meds within 1hr before or 4-6hr after dose simethicone [Gas Relief (simethicone)] 80 mg Tablet,Chewable 80 mg PO Q8H PRN (Reason: abdominal distention) Qty: 60 0RF metformin 500 mg tablet 500 mg PO BID Referrals Referrals: Marie Gould MD [Primary Care Provider] -
[2024-04-02 14:41] LABS: Prothrombin Time 10.9 Seconds (9.0-12.0)
--- NOTE | 2024-04-02 15:43 | Electrocardiogram Report ---
Test Reason : Blood Pressure : */* mmHG Vent. Rate : 81 BPM Atrial Rate : 81 BPM P-R Int : 130 ms QRS Dur : 82 ms QT Int : 354 ms P-R-T Axes : 46 46 59 degrees QTcB Int : 411 ms Sinus rhythm with Premature atrial complexes Otherwise normal ECG When compared with ECG of 22-Feb-2024 05:22, Premature atrial complexes are now Present Confirmed by Chapo Perrin ([id number]) on 04/02/2024 3:42:48 PM Referred By: Confirmed By: Chapo Perrin
[2024-04-02] MEDS: cefTRIAXone SODIUM 2,000 MG/50 ML BAG IV STA (15:57)
[2024-04-02] MEDS ORDERED: ONDANSETRON INJ 2 MG/ML 2 ML VIAL IV PRN (18:44)
[2024-04-02] MEDS ORDERED: ACETAMINOPHEN 325 MG TAB PO PRN (18:44)
--- NOTE | 2024-04-02 18:45 | History & Physical Report ---
Date of Service April 02, 2024 History of Present Illness Chief Complaint: Chills Primary Care Provider: Marie Gould MD Patient is 73 year old female with PMH HTN, HLD, DM II, depression, ILD, ZHARA Recent hospitalization 02/21/2024-02/25/2024 for left obstructing ureteral calculus, UTI, possible urosepsis s/p cystoscopy, left stent placement by Dr. Abdi on 02/21/2024 Urine culture Negative blood cultures Treated with Discharged on Followed up with urology 03/17/2024 with plan for cystoscopy, ureteral nephroscopy, extraction and laser destruction stone with possible exchange stent left On 04/03/[address] Abdi Allergies Allergy/AdvReac Type Severity Reaction Status Date / Time Sulfa (Sulfonamide Allergy Intermediate SOB, Verified 03/21/24 10:24 Antibiotics) Systemic rash morphine AdvReac Intermediate Tachycardia Verified 03/21/24 10:24 /Fever/Chil ls/Vomiting SULFATE WITH CHEAP FLIP FLOPS Allergy Unknown I break out Uncoded 03/21/24 10:24 Home Medications Medication Instructions Recorded Confirmed Type amlodipine 5 mg tablet 2.5 mg PO QAM 10/25/18 04/02/24 History atorvastatin 20 mg tablet 20 mg PO HS 10/25/18 04/02/24 History citalopram 40 mg tablet 40 mg PO QAM 10/25/18 04/02/24 History lisinopril 2.5 mg tablet 2.5 mg PO HS 10/25/18 04/02/24 History trazodone 50 mg tablet 12.5 mg PO HS PRN Insomnia 10/25/18 04/02/24 History prednisolone acetate 1 % eye 1 drp OPB QPM 12/03/18 04/02/24 History drops,suspension (Pred Forte) Bifidobacterium infantis 4 mg 4 mg PO HS 08/09/20 04/02/24 History capsule (Align) cholestyramine-aspartame 4 gram 4 g PO BID 03/17/22 04/02/24 History oral powder (Cholestyramine Light) psyllium seed (sugar) oral powder 1 tsp PO UD PRN BOWEL REGULARITY 03/17/22 04/02/24 History (Metamucil (sugar) oral powder) famotidine 20 mg tablet 20 mg PO DAILY PRN Heartburn 06/22/23 04/02/24 History nitroglycerin 0.4 mg sublingual 0.4 mg sublingual UD PRN Angina 11/20/23 04/02/24 Rx tablet #30 tabs simethicone 80 mg chewable tablet 80 mg PO Q8H PRN abdominal 02/25/24 04/02/24 Rx (Gas Relief (simethicone)) distention #60 tabs albuterol sulfate 2.5 mg/3 mL 2.5 mg (3 mL) inhalation Q4 PRN 03/04/24 04/02/24 Rx (0.083 %) solution for nebulization cough/sob #180 mL albuterol sulfate 90 mcg/actuation 2 inh inhalation Q6H #8.5 grams 03/04/24 04/02/24 Rx aerosol inhaler beclomethasone dipropionate 80 2 inh inhalation BID #10.6 grams 03/04/24 04/02/24 Rx mcg/actuation HFA breath activated aerosol (Qvar RediHaler) montelukast 10 mg tablet 10 mg PO QAM #90 tabs 03/04/24 04/02/24 Rx tamsulosin 0.4 mg capsule (Flomax) 0.4 mg PO DAILY kidney stone #30 03/17/24 04/02/24 Rx caps metformin 500 mg tablet 500 mg PO BID 03/21/24 04/02/24 History Past Med/Surg History Problem List (Updated 04/02/24 @ 18:22 by Ying Ruiz MD) Complicated urinary tract infection (Acute) Renal colic (Acute) Sepsis (Acute) Calculus of proximal left ureter Encounter for pre-operative examination Shortness of breath Asthma GERD (gastroesophageal reflux disease) Diabetes mellitus, type 2 (Chronic) Panic attacks (Chronic) REMOTE HX Anxiety (Chronic) Depression (Chronic) Hypertension (Chronic) Hyperlipidemia (Chronic) Mitral valve prolapse (Chronic) PVC's (premature ventricular contractions) (Chronic) Sleep apnea (Chronic) cpap Medical History Alternating constipation and diarrhea GERD (gastroesophageal reflux disease) Hx of shortness of breath pt denies at this time / Follows Dr Lemus Hx of sepsis 02/21/24 [facility] er Sleep apnea C-PAP Kidney stones Mitral valve prolapse [facility] Cardiology Dr rFye most recent echo 02/19/24 Hypertension Hyperlipidemia Diabetes mellitus, type 2 oral Asthma prn inhaler Depression patient prefers not to discuss Anxiety patient prefers not to discuss History of low potassium s/b bowel sx (hospitalized [facility] few years ago) Fecal urgency intermittent History of anesthesia reaction Hypotension 80/30 after procedure 02/21/24 [facility] as per patient [place] [facility] Cardio Dr Frye "PVC's" as per patient 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 It is considered environmental." History of colon polyps Stable angina [facility] Cardiology Dr Frye Surgical History Hx of esophagogastroduodenoscopy 2021 Hx of cystoscopy with stent - 02/21/24 [facility] History of bowel resection History of cardiac cath x2 at least most recent 2014 - no stents Status post laparotomy "appendiceal tumor" History of hemicolectomy 11/26/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 History of wisdom tooth extraction History of left inguinal hernia repair History of section Family History Grandmother (Maternal) Family hx of colon cancer Father Family history of diabetes mellitus Sister Family history of colonic polyps Grandfather (Maternal) Family history of diabetes mellitus Social History Smoking Status: Never smoker Second Hand Exposure: No; Do You Dip or Chew Tobacco: No; Hx Alcohol Use: No Hx Substance Use: No Preferred Language: Slovak Communication Ability: Effective Visual Impairment: No Limitations Hearing Ability: Normal Clinical Assessment Manager Required: No Beliefs That Will Affect Care: None marital status: Current Living Situation: Family Current Living Situation Comment: lives at home with and adult daughter How many Children do You have: 1 Feels Safe at Home: Yes caffeine: No (uses decaf tea and coffee) Do you think of yourself as: straight/heterosexual Gender Identity: Female Assistive Devices: CPAP Results & Data Results & Data Vital Signs (Past 12 Hours) Vital Signs Temp Pulse Pulse Resp BP BP Pulse Ox 04/02/24 17:00 73 18 144/77 H 98 04/02/24 15:29 73 18 116/64 95 04/02/24 15:17 76 04/02/24 14:09 98 04/02/24 13:22 36.9 C 107 H 12 115/64 96 O2 Del Method 04/02/24 17:00 Room Air 04/02/24 15:29 Room Air 04/02/24 15:17 04/02/24 14:09 Room Air 04/02/24 13:22 Room Air
[2024-04-02] MEDS ORDERED: CARBOHYDRATES FOR HYPOGLYCEMIA PO PRN (18:54)
[2024-04-02] MEDS ORDERED: GLUCOSE 40% GEL 15 GM TUBE PO PRN (18:54)
[2024-04-02] MEDS ORDERED: GLUCAGON FOR INJ 1 MG VIAL SQ PRN (18:54)
[2024-04-02] MEDS ORDERED: GLUCOSE 10 TAB/TUBE PO PRN (18:54)
[2024-04-02] MEDS ORDERED: DEXTROSE 50% 50 ML SYRINGE IV PRN (18:54)
[2024-04-02] MEDS ORDERED: PHENAZOPYRIDINE HCL 100 MG TAB PO PRN (18:55)
--- NOTE | 2024-04-02 18:57 | History & Physical Report ---
Date of Service April 02, 2024 Assessment & Plan (1) Complicated urinary tract infection: Plan: Complicated UTI Obstructive uropathy Nephrolithiasis --CT abdomen pending Prior cultures grew E. coli Blood, urine cultures pending Empirically started on IV Rocephin Continue IV fluids, Pyridium as needed Continue Flomax Urology consulted, n.p.o. after midnight for possible procedure PACs H/O mitral valve prolapse Monitor and replete electrolytes as needed Currently asymptomatic Follows with Dr. 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 DVT Px: Heparin SQ Code Status Full Code History of Present Illness Chief Complaint: Generalized weakness Primary Care Provider: Marie Gould MD Patient is a 73-year-old female with history of hypertension, hyperlipidemia, nephrolithiasis, diabetes mellitus type 2, suspected COPD, appendiceal tumor, mitral valve prolapse and other medical problems who was recently hospitalized in January and managed for urinary tract infection, obstructive uropathy requiring left ureteral stent placement and discharged on oral antibiotics to complete the course presents with history of generalized weakness, poor oral intake, increased urinary frequency, chills, intermittent shortness of breath. Patient states completing her oral antibiotic course as prescribed and since the completion patient gradually developed urinary symptoms which prompted her to come to the hospital. Patient was scheduled for cystoscopy, ureteral nephroscopy, extraction and laser destruction of stone with possible exchange of left ureteral stent tomorrow. Denies any history of chest pain, dizziness, cough, fever, fall, headache, nausea, vomiting, abdominal pain, blood in stools, diarrhea, dysuria, hematuria. Allergies Allergy/AdvReac Type Severity Reaction Status Date / Time Sulfa (Sulfonamide Allergy Intermediate SOB, Verified 03/21/24 10:24 Antibiotics) Systemic rash morphine AdvReac Intermediate Tachycardia Verified 03/21/24 10:24 /Fever/Chil ls/Vomiting SULFATE WITH CHEAP FLIP FLOPS Allergy Unknown I break out Uncoded 03/21/24 10:24 Home Medications Medication Instructions Recorded Confirmed Type amlodipine 5 mg tablet 2.5 mg PO QAM 10/25/18 04/02/24 History atorvastatin 20 mg tablet 20 mg PO HS 10/25/18 04/02/24 History citalopram 40 mg tablet 40 mg PO QAM 10/25/18 04/02/24 History lisinopril 2.5 mg tablet 2.5 mg PO HS 10/25/18 04/02/24 History trazodone 50 mg tablet 12.5 mg PO HS PRN Insomnia 10/25/18 04/02/24 History prednisolone acetate 1 % eye 1 drp OPB QPM 12/03/18 04/02/24 History drops,suspension (Pred Forte) Bifidobacterium infantis 4 mg 4 mg PO HS 08/09/20 04/02/24 History capsule (Align) cholestyramine-aspartame 4 gram 4 g PO BID 03/17/22 04/02/24 History oral powder (Cholestyramine Light) psyllium seed (sugar) oral powder 1 tsp PO UD PRN BOWEL REGULARITY 03/17/22 04/02/24 History (Metamucil (sugar) oral powder) famotidine 20 mg tablet 20 mg PO DAILY PRN Heartburn 06/22/23 04/02/24 History nitroglycerin 0.4 mg sublingual 0.4 mg sublingual UD PRN Angina 11/20/23 04/02/24 Rx tablet #30 tabs simethicone 80 mg chewable tablet 80 mg PO Q8H PRN abdominal 02/25/24 04/02/24 Rx (Gas Relief (simethicone)) distention #60 tabs albuterol sulfate 2.5 mg/3 mL 2.5 mg (3 mL) inhalation Q4 PRN 03/04/24 04/02/24 Rx (0.083 %) solution for nebulization cough/sob #180 mL albuterol sulfate 90 mcg/actuation 2 inh inhalation Q6H #8.5 grams 03/04/24 04/02/24 Rx aerosol inhaler beclomethasone dipropionate 80 2 inh inhalation BID #10.6 grams 03/04/24 04/02/24 Rx mcg/actuation HFA breath activated aerosol (Qvar RediHaler) montelukast 10 mg tablet 10 mg PO QAM #90 tabs 03/04/24 04/02/24 Rx tamsulosin 0.4 mg capsule (Flomax) 0.4 mg PO DAILY kidney stone #30 03/17/24 04/02/24 Rx caps metformin 500 mg tablet 500 mg PO BID 03/21/24 04/02/24 History Past Med/Surg History Problem List Complicated urinary tract infection (Acute) Renal colic (Acute) Sepsis (Acute) Calculus of proximal left ureter Encounter for pre-operative examination Shortness of breath Asthma GERD (gastroesophageal reflux disease) Diabetes mellitus, type 2 (Chronic) Panic attacks (Chronic) REMOTE HX Anxiety (Chronic) Depression (Chronic) Hypertension (Chronic) Hyperlipidemia (Chronic) Mitral valve prolapse (Chronic) PVC's (premature ventricular contractions) (Chronic) Sleep apnea (Chronic) cpap Medical History Hydronephrosis Alternating constipation and diarrhea GERD (gastroesophageal reflux disease) Hx of shortness of breath pt denies at this time / Follows Dr Lemus Hx of sepsis 02/21/24 [facility] Sleep apnea C-PAP Kidney stones Mitral valve prolapse [facility] [place] Frye most recent echo 02/19/24 Hypertension Hyperlipidemia Diabetes mellitus, type 2 oral Asthma prn inhaler Depression patient prefers not to discuss Anxiety patient prefers not to discuss History of low potassium s/b bowel sx (hospitalized [facility] few years ago) Fecal urgency intermittent History of anesthesia reaction Hypotension 80/30 after procedure 02/21/24 [facility] as per patient [place] [facility] [place] Frye "PVC's" as per patient 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 It is considered environmental." History of colon polyps Stable angina [facility] [place] Frye Surgical History Hx of esophagogastroduodenoscopy 2021 Hx of cystoscopy with stent - 02/21/24 [facility] History of bowel resection History of cardiac cath x2 at least most recent 2014 - no stents Status post laparotomy "appendiceal tumor" History of hemicolectomy 11/26/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 History of wisdom tooth extraction History of left inguinal hernia repair History of section Family History Grandmother (Maternal) Family hx of colon cancer Father Family history of diabetes mellitus Sister Family history of colonic polyps Grandfather (Maternal) Family history of diabetes mellitus Social History Smoking Status: Never smoker Second Hand Exposure: No; Do You Dip or Chew Tobacco: No; Hx Alcohol Use: No Hx Substance Use: No Preferred Language: Azerbaijani Communication Ability: Effective Visual Impairment: No Limitations Hearing Ability: Normal Climate Change Risk Assessor Required: No Beliefs That Will Affect Care: None marital status: Current Living Situation: Family Current Living Situation Comment: lives at home with and adult daughter How many Children do You have: 1 Feels Safe at Home: Yes caffeine: No (uses decaf tea and coffee) Do you think of yourself as: straight/heterosexual Gender Identity: Female Assistive Devices: CPAP Review of Systems Review of Systems: All systems reviewed & are unremarkable except as noted in Subjective Physical Exam Physical Exam: Physical Exam: Vitals signs as noted above General Appearance:Thin, Frail, no apparent distress Head: normocephalic, Atraumatic Eyes: normal inspection, EOMI Neck: supple, Trachea midline Respiratory/Chest: Normal breath sounds, CTA, No accessory muscle use Cardiovascular: S1, S2, No murmur Abdomen/GI:Soft, Non tender, Bowel sounds present Extremities/Musculoskeletal:normal inspection, no edema Neurologic/Psych:AAOX3, grossly no focal neurological deficits Skin: normal color, warm Results & Data Results & Data Vital Signs (Past 12 Hours) Vital Signs Temp Pulse Pulse Resp BP BP Pulse Ox 04/02/24 17:00 73 18 144/77 H 98 04/02/24 15:29 73 18 116/64 95 04/02/24 15:17 76 04/02/24 14:09 98 04/02/24 13:22 36.9 C 107 H 12 115/64 96 O2 Del Method 04/02/24 17:00 Room Air 04/02/24 15:29 Room Air 04/02/24 15:17 04/02/24 14:09 Room Air 04/02/24 13:22 Room Air Laboratory Results Short CBC 04/02/24 Range/Units 13:50 WBC 5.94 (4.8-10.8) K/ul Hgb 12.5 (12.0-16.0) g/dl Hct 36.8 L (37.0-47.0) % Plt Count 270 (130-400) K/uL BMP 04/02/24 13:50 Sodium 138 Potassium 3.7 Chloride 101 Carbon Dioxide 29 BUN 10 Creatinine 0.65 Glucose 146 H Calcium 9.9 Liver Function 04/02/24 Range/Units 13:50 Total Bilirubin 0.9 (0.2-1.0) mg/dl AST 19 (13-39) U/L ALT 17 (7-52) U/L Alkaline Phosphatase 66 (34-104) U/L Albumin 4.4 (3.4-5.0) gm/dl Urine 04/02/24 Range/Units 13:44 Urine Color Yellow Urine Appearance Cloudy A (Clear) Urine pH 5.5 (4.5-7.5) Ur Specific [place] 1.016 (1.000-1.030) Urine Protein 2+ H (Negative) Urine Glucose (UA) Negative (Negative) Code Status & VTE Plan VTE Prophylaxis Plan VTE Prophylaxis will be ordered: Yes
[2024-04-02] MEDS: LACTATED RINGER'S 1,000 ML IV ONE (19:06)
--- NOTE | 2024-04-02 21:07 | CT Scan Report ---
INDICATION: Abdominal pain. COMPARISON: CT from 02/21/2024. TECHNIQUE: Axial CT images of the abdomen and pelvis were obtained following IV contrast administration. Coronal and sagittal reformations were reviewed. FINDINGS: Visualized lung bases appear unremarkable. The liver, gallbladder, spleen, pancreas and adrenal glands appear unremarkable. Interval placement of left ureteral stent with resolution of left hydronephrosis. A few nonobstructing left renal calculi redemonstrated. No right hydronephrosis. No evidence of bowel obstruction/colitis/appendicitis. No free air. No drainable fluid collection. The urinary bladder is not distended. No acute osseous abnormality evident. IMPRESSION: Interval placement of left ureteral stent with resolution of left hydronephrosis. A few nonobstructing left renal calculi redemonstrated. Electronically signed by Matthias Perez 04-02-2024 5:32 PM
[2024-04-02] MEDS ORDERED: ALBUTEROL 0.083% NEBU SOLN 3 ML VIAL INH PRN (21:22)
[2024-04-02] MEDS: ALBUTEROL HFA 8 GM INHALER INH SCH (21:43)
[2024-04-02] MEDS: HEPARIN SOD 5,000 UNIT/0.5 ML VIAL SQ SCH (22:25)
[2024-04-02] MEDS: INSULIN ASPART PER UNIT CHARGE SC SCH (22:27)
[2024-04-02] MEDS: POTASSIUM CHLORIDE CRTAB 20 MEQ TABCR PO ONE ×2 (22:28→22:30)
[2024-04-02] MEDS: prednisoLONE acetate 1% OP SUSP 5 ML BTL OPB SCH (22:28)
[2024-04-02] MEDS: CHOLESTYRAMINE LIGHT 4 GM PKT PO SCH (22:29)
[2024-04-02] MEDS: ATORVASTATIN 20 MG TAB PO SCH (22:29)
[2024-04-02] MEDS: lisinopril 2.5 MG TAB PO SCH (22:29)
[2024-04-03] MEDS ORDERED: Nursing to Pharmacy Communication SCH ×2 (00:45→08:45)
[2024-04-03] MEDS: FAMOTIDINE 20 MG TAB PO PRN (01:37)
[2024-04-03] MEDS: traZODone HCL 50 MG TAB PO PRN (01:37)
[2024-04-03] MEDS: INSULIN ASPART PER UNIT CHARGE SC SCH ×2 (06:02→09:26)
[2024-04-03 07:26] LABS: Basophils # (auto) 0.05 K/uL (0.00-0.20); Basophils % (auto) 0.9 %; Eosinophils # (auto) 0.14 K/uL (0.00-0.50); Eosinophils % (auto) 2.6 %; Hematocrit (blood only) 33.9 % (37.0-47.0); Hemoglobin 11.2 g/dl (12.0-16.0); Immature Granulocytes # (auto) 0.02 K/uL (0.01-0.20); Immature Granulocytes % (auto) 0.4 %; Lymphocytes # (auto) 1.92 K/uL (1.20-3.40); Lymphocytes % (auto) 35.7 %; Mean Corpuscular Hemoglobin 29.1 pg (25.0-34.0); Mean Corpuscular Volume 88.1 fL (80.0-100.0); Mean Platelet Volume 9.9 fL (9.4-12.4); Monocytes # (auto) 0.53 K/uL (0.11-0.59); Monocytes % (auto) 9.9 %; Neutrophils # (auto) 2.72 K/uL (1.40-6.50); Neutrophils % (auto) 50.5 %; Platelet Count 251 K/uL (130-400); RDW Coefficient of Variation 13.7 % (11.5-14.5); RDW Standard Deviation 44.5 fL (36.4-46.3); Red Blood Count 3.85 M/uL (4.20-5.40); White Blood Count 5.38 K/ul (4.8-10.8)
[2024-04-03 07:44] LABS: BUN Creatinine Ratio 18.3 (10-20); Calcium 9.5 mg/dl (8.6-10.3); Creatinine Clr Calc Pharmacy 80.6 ml/min; Potassium 4.2 mmol/L (3.5-5.1)
[2024-04-03] MEDS: CITALOPRAM 40 MG TAB PO SCH (08:15)
[2024-04-03] MEDS: TAMSULOSIN HCL 0.4 MG CAP PO SCH (08:15)
[2024-04-03] MEDS: amLODIPine BESYLATE 5 MG TAB PO SCH (08:15)
[2024-04-03] MEDS: MONTELUKAST SODIUM 10 MG TABLET PO SCH (08:15)
[2024-04-03] MEDS: FLUTICASONE FUROATE 200MCG 14 PUFFS/INHALER INH SCH (08:16)
[2024-04-03] MEDS: ADVANCED PROBIOTIC 625 MG CAPSULE PO SCH (08:16)
--- NOTE | 2024-04-03 08:18 | Urology Consultation ---
Date of Consultation April 03, 2024 Assessment & Plan (1) Complicated urinary tract infection: (2) Calculus of proximal left ureter: (3) Shortness of breath: Plan Currently she is feeling better after receiving IV antibiotics. Clinical picture is concerning for UTI, but everything appears decompressed with her stent in place. For now, would hold off any acute urologic intervention. I specifically discussed this with her, that we will not be treating her stone today, or likely during this admission. From urology perspective, it is ok for her to have a diet. As a next step, would recommend continuing broad-spectrum antibiotics, narrowing as culture data becomes available. Her description of shortness of breath and history of valvular cardiac issues raises the question of whether there is more going on than her UTI. I would defer to the medicine team regarding overall suspicion and need for additional workup. Urology will follow along History of Present Illness Reason for Consultation: Complicated UTI, was scheduled for surgery Attending Physician: Mike Arriola MD History of Present Illness This is a 73-year-old female followed by urology for nephrolithiasis. She previously underwent left ureteral stent placement on 02/21/2024 for an obstructing stone in the setting of UTI. After stent placement, her infection was treated and she is subsequently discharged on antibiotics. She was initially scheduled for stone treatment on 04/03/2024 however presented to the ED on 04/02 reporting generalized weakness, poor p.o. intake, worsening urinary symptoms and shortness of breath. Workup in the ED was notable for normal WBC (5.94). Creatinine was also normal at 0.65. Glucose was somewhat elevated at 152. Her urinalysis was notable for positive nitrites, 3+ leukocyte esterase and pyuria. A CT scan of the abdomen and pelvis was performed. I independently reviewed these images from 04/02/2024. Both kidneys are in normal position. The left ureteral stent still is in good position and there is no hydronephrosis bilaterally. Bladder was decompressed. There were some nonobstructing stones seen in the left kidney. At the bedside this morning, she reports that she is feeling better after getting antibiotics. She feels like she never totally rebounded after her in itial surgery and is wondering what we can do differently to keep this from happening again. Allergies Allergy/AdvReac Type Severity Reaction Status Date / Time Sulfa (Sulfonamide Allergy Intermediate SOB, Verified 03/21/24 10:24 Antibiotics) Systemic rash morphine AdvReac Intermediate Tachycardia Verified 03/21/24 10:24 /Fever/Chil ls/Vomiting SULFATE WITH CHEAP FLIP FLOPS Allergy Unknown I break out Uncoded 03/21/24 10:24 Home Medications Medication Instructions Recorded Confirmed Type amlodipine 5 mg tablet 2.5 mg PO QAM 10/25/18 04/02/24 History atorvastatin 20 mg tablet 20 mg PO HS 10/25/18 04/02/24 History citalopram 40 mg tablet 40 mg PO QAM 10/25/18 04/02/24 History lisinopril 2.5 mg tablet 2.5 mg PO HS 10/25/18 04/02/24 History trazodone 50 mg tablet 12.5 mg PO HS PRN Insomnia 10/25/18 04/02/24 History prednisolone acetate 1 % eye 1 drp OPB QPM 12/03/18 04/02/24 History drops,suspension (Pred Forte) Bifidobacterium infantis 4 mg 4 mg PO HS 08/09/20 04/02/24 History capsule (Align) cholestyramine-aspartame 4 gram 4 g PO BID 03/17/22 04/02/24 History oral powder (Cholestyramine Light) psyllium seed (sugar) oral powder 1 tsp PO UD PRN BOWEL REGULARITY 03/17/22 04/02/24 History (Metamucil (sugar) oral powder) famotidine 20 mg tablet 20 mg PO DAILY PRN Heartburn 06/22/23 04/02/24 History nitroglycerin 0.4 mg sublingual 0.4 mg sublingual UD PRN Angina 11/20/23 04/02/24 Rx tablet #30 tabs simethicone 80 mg chewable tablet 80 mg PO Q8H PRN abdominal 02/25/24 04/02/24 Rx (Gas Relief (simethicone)) distention #60 tabs albuterol sulfate 2.5 mg/3 mL 2.5 mg (3 mL) inhalation Q4 PRN 03/04/24 04/02/24 Rx (0.083 %) solution for nebulization cough/sob #180 mL albuterol sulfate 90 mcg/actuation 2 inh inhalation Q6H #8.5 grams 03/04/24 04/02/24 Rx aerosol inhaler beclomethasone dipropionate 80 2 inh inhalation BID #10.6 grams 03/04/24 04/02/24 Rx mcg/actuation HFA breath activated aerosol (Qvar RediHaler) montelukast 10 mg tablet 10 mg PO QAM #90 tabs 03/04/24 04/02/24 Rx tamsulosin 0.4 mg capsule (Flomax) 0.4 mg PO DAILY kidney stone #30 03/17/24 04/02/24 Rx caps metformin 500 mg tablet 500 mg PO BID 03/21/24 04/02/24 History Patient History Medical History Hydronephrosis Alternating constipation and diarrhea GERD (gastroesophageal reflux disease) Hx of shortness of breath pt denies at this time / Follows Dr Lemus Hx of sepsis 02/21/24 [facility] Sleep apnea C-PAP Kidney stones Mitral valve prolapse [facility] Card[place] Dr Frye most recent echo 02/19/24 Hypertension Hyperlipidemia Diabetes mellitus, type 2 oral Asthma prn inhaler Depression patient prefers not to discuss Anxiety patient prefers not to discuss History of low potassium s/b bowel sx (hospitalized [facility] few years ago) Fecal urgency intermittent History of anesthesia reaction Hypotension 80/30 after procedure 02/21/24 [facility] as per patient [place] [facility] Cardio Dr Frye "PVC's" as per patient 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 It is considered environmental." History of colon polyps Stable angina [facility] Cardiology Dr Frye Surgical History Hx of esophagogastroduodenoscopy 2021 Hx of cystoscopy with stent - 02/21/24 [facility] History of bowel resection History of cardiac cath x2 at least most recent 2014 - no stents Status post laparotomy "appendiceal tumor" History of hemicolectomy 11/26/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 History of wisdom tooth extraction History of left inguinal hernia repair History of section Family History Grandmother (Maternal) Family hx of colon cancer Father Family history of diabetes mellitus Sister Family history of colonic polyps Grandfather (Maternal) Family history of diabetes mellitus Social History Smoking Status: Never smoker Second Hand Exposure: No; Do You Dip or Chew Tobacco: No; Hx Alcohol Use: No Hx Substance Use: No Preferred Language: Romansh Communication Ability: Effective Visual Impairment: No Limitations Hearing Ability: Normal Contract Driver Required: No Beliefs That Will Affect Care: None marital status: Current Living Situation: Spouse and Family Current Living Situation Comment: lives at home with and adult daughter How many Children do You have: 1 Other Information That Helps Us Care for You: No Feels Safe at Home: Yes Safety Concerns: Feels Safe At This Time caffeine: No (uses decaf tea and coffee) Do you think of yourself as: straight/heterosexual Gender Identity: Female Assistive Devices: Hospital Bed Review of Systems Review of Systems: 12 point review of systems negative exce pt for otherwise indicated. Physical Exam Constitutional: well developed and well nourished; no acute distress Eyes: + anicteric sclerae; pupils not irregula r Respiratory: normal respiratory effort; no respiratory distress, does not use accessory muscles and no cough Cardiovascular: well perfused Gastrointestinal (Abdomen): Inspection/Auscultation: abdomen normal to inspection; abdomen not distended Musculoskeletal: Extremities: extremities normal to inspection Skin: normal turgor; no rashes and no lesions Neurologic: moves all extremities and awake Psychiatric: Orientation: alert and oriented x 3 Results & Data Vital Signs (Past 12 Hours) Vital Signs Temp Pulse Pulse Pulse Resp BP Pulse Ox 04/03/24 07:10 36.8 C 54 L 18 117/63 96 04/03/24 07:09 53 L 16 95 04/03/24 03:49 57 L 18 97 04/03/24 00:40 67 28 H 93 04/02/24 21:43 66 20 98 04/02/24 21:25 04/02/24 21:25 36.9 C 81 16 139/70 97 04/02/24 20:50 36.9 C 81 16 139/70 97 O2 Del Method O2 Flow Rate FiO2 04/03/24 07:10 Room Air 04/03/24 07:09 Room Air 04/03/24 03:49 Nasal Cannula 2 04/03/24 00:40 21 04/02/24 21:43 Room Air 04/02/24 21:25 CPAP 04/02/24 21:25 Room Air 04/02/24 20:50 Room Air PG Care Time/CCT Total # of Minutes Spent Total Time Spent with Patient: Total time spent is greater than 50% in coordination of care (as documented) at patient's floor/unit and/or counseling patient: Coding Level of Care Code 83555 IN/OBS CONSULT LVL 4,60M Diagnoses Complicated urinary tract infection N39.0 Calculus of proximal left ureter N20.1 Shortness of breath R06.02
--- NOTE | 2024-04-03 10:28 | Electrocardiogram Report ---
Test Reason : Blood Pressure : */* mmHG Vent. Rate : 61 BPM Atrial Rate : 61 BPM P-R Int : 146 ms QRS Dur : 86 ms QT Int : 412 ms P-R-T Axes : 67 43 45 degrees QTcB Int : 414 ms Normal sinus rhythm Normal ECG When compared with ECG of 02-Apr-2024 13:46, Premature atrial complexes are no longer Present T wave amplitude has increased in Anterior leads Confirmed by Chapo Perrin ([id number]) on 04/03/2024 10:27:30 AM Referred By: REFERRED SELF Confirmed By: Chapo Perrin
--- NOTE | 2024-04-03 13:32 | Hospitalist Progress Note ---
Date of Service April 03, 2024 Assessment & Plan (1) Complicated urinary tract infection: Plan: Complicated UTI Obstructive uropathy Nephrolithiasis Patient was recently admitted in January for urinary tract infection; found to have obstructive uropathy requiring left ureteral stent placement. Presents with increased urinary frequency and chills CT abdomen pelvis showed interval placement of left ureteral stent with resolution of left hydronephrosis. Urinalysis positive for infection Urine culture growing E. coli Continue on IV ceftriaxone; follow-up on final urine and blood culture Continue Flomax PACs H/O mitral valve prolapse Monitor and replete electrolytes as needed Currently asymptomatic Follows with Dr. Frye as outpatient DM Type II: Will hold oral diabetic meds Continue insulin while hospitalized Monitor BGs Other chronic conditions: Hypertension- on lisinopril Hyperlipidemia- continue Lipitor Continue home medications as able DVT Px: Heparin SQ Code Status Full Code Time spent evaluating patient, direct bedside care, chart review, placing orders, interpretation of diagnostic studies, discussion with consultants, patient, and family members, as well as other required patient management activities is 50 minutes Please note the above document was generated using voice recognition software. It may contain grammatical, syntax or spelling errors. Any formal questions or concerns about the content, text or information contained within the body of this dictation should be directly addressed to the provider for clarification Admission and Anticipated Discharge Date Admission Date: April 02, 2024 Subjective Patient seen and examined at bedside She reports that she is feeling much better compared to yesterday No significant events overnight Review of Systems Review of Systems: All systems reviewed & are unremarkable except as noted in Subjective Physical Exam Physical Exam: Physical Exam: Vitals signs as noted above General Appearance:Thin, Frail, no apparent distress Head: normocephalic, Atraumatic Eyes: normal inspection, EOMI Neck: supple, Trachea midline Respiratory/Chest: Normal breath sounds, CTA, No accessory muscle use Cardiovascular: S1, S2, No murmur Abdomen/GI:Soft, Non tender, Bowel sounds present Extremities/Musculoskeletal:normal inspection, no edema Neurologic/Psych:AAOX3, grossly no focal neurological deficits Skin: normal color, warm Results & Data Results & Data Vital Signs (Past 12 Hours) Vital Signs Temp Pulse Pulse Resp BP Pulse Ox O2 Del Method 04/03/24 13:09 67 16 97 Room Air 04/03/24 07:10 36.8 C 54 L 18 117/63 96 Room Air 04/03/24 07:09 53 L 16 95 Room Air 04/03/24 03:49 57 L 18 97 Nasal Cannula O2 Flow Rate 04/03/24 13:09 04/03/24 07:10 04/03/24 07:09 04/03/24 03:49 2
[2024-04-03] MEDS: cefTRIAXone SODIUM 2,000 MG/50 ML BAG IV SCH (15:07)
[2024-04-03] MEDS: MULTIVITAMIN TAB PO SCH (15:08)
[2024-04-03] MEDS: SIMETHICONE 80 MG CHEW PO PRN (21:05)
[2024-04-04 06:52] LABS: Basophils # (auto) 0.04 K/uL (0.00-0.20); Basophils % (auto) 0.8 %; Eosinophils # (auto) 0.15 K/uL (0.00-0.50); Eosinophils % (auto) 2.8 %; Hematocrit (blood only) 35.7 % (37.0-47.0); Hemoglobin 11.6 g/dl (12.0-16.0); Immature Granulocytes # (auto) 0.01 K/uL (0.01-0.20); Immature Granulocytes % (auto) 0.2 %; Lymphocytes # (auto) 1.62 K/uL (1.20-3.40); Lymphocytes % (auto) 30.6 %; Mean Corpuscular Hemoglobin 29.3 pg (25.0-34.0); Mean Corpuscular Hgb Conc 32.5 g/dL (32.0-36.0); Mean Corpuscular Volume 90.2 fL (80.0-100.0); Mean Platelet Volume 9.6 fL (9.4-12.4); Monocytes # (auto) 0.55 K/uL (0.11-0.59); Monocytes % (auto) 10.4 %; Neutrophils # (auto) 2.93 K/uL (1.40-6.50); Neutrophils % (auto) 55.2 %; Platelet Count 255 K/uL (130-400); RDW Coefficient of Variation 13.5 % (11.5-14.5); RDW Standard Deviation 44.8 fL (36.4-46.3); Red Blood Count 3.96 M/uL (4.20-5.40)
[2024-04-04 07:22] LABS: BUN Creatinine Ratio 28.8 (10-20); Calcium 9.6 mg/dl (8.6-10.3); Creatinine Clr Calc Pharmacy 73.3 ml/min; Potassium 4.2 mmol/L (3.5-5.1)
[2024-04-04] MEDS: POLYETHYLENE (MIRALAX) 17 GM PACK PO PRN (08:53)
--- NOTE | 2024-04-04 09:20 | Urology Progress Note ---
Date of Service April 04, 2024 Assessment & Plan (1) Complicated urinary tract infection: Plan Follow-up of complicated UTI Patient afebrile with stable vitals Labs reviewedcreatinine 0.66, WBC 5.3, hemoglobin 11.6 Urine culture prelim with E. coli Blood cultures with no growth x 24 hours Continue with broad-spectrum antibiotics and narrow per sensitivity data when available Will plan to reschedule her urologic intervention after acute infection has been treated Continue with supportive care, antibiotics and medical management per hospital medicine service will sign off, please contact our service with any additional questions or concerns Admission and Anticipated Discharge Date Admission Date: April 02, 2024 Subjective Patient seen and examined at bedside this morning. She is awake and sitting up in bed. No acute issues overnight. Generally feeling better since arrival. She is voiding spontaneously. Notes darker urine this morning. No dysuria. However, she reports vague sensation that she might be getting a yeast infection. No fever or chills. Review of Systems 2 Constitutional: as per Subjective / HPI Genitourinary: as per Subjective / HPI Physical Exam Constitutional: no acute distress Respiratory: normal respiratory effort; no respiratory distress and no labored breathing Gastrointestinal (Abdomen): Inspection/Auscultation: abdomen normal to inspection Musculoskeletal: Head/Neck/Chest: normocephalic Neurologic: moves all extremities and awake Psychiatric: Orientation: alert and oriented x 3 Results & Data Vital Signs (Past 12 Hours) Vital Signs Temp Pulse Pulse Resp BP Pulse Ox O2 Del Method 04/04/24 08:22 36.6 C 71 16 114/70 95 Room Air 04/04/24 07:25 55 L 16 98 Room Air 04/04/24 00:58 Nasal Cannula, CPAP 04/03/24 23:57 57 L 18 98 Nasal Cannula 04/03/24 22:20 96 H 26 H 97 O2 Flow Rate FiO2 04/04/24 08:22 04/04/24 07:25 04/04/24 00:58 04/03/24 23:57 2 04/03/24 22:20 21 PG Care Time/CCT Total # of Minutes Spent Total Time Spent with Patient: Total time spent is greater than 50% in coordination of care (as documented) at patient's floor/unit and/or counseling patient: Coding Level of Care Code 14956 SUB INP/OBS CARE 06/21MIN Diagnoses Complicated urinary tract infection N39.0
--- NOTE | 2024-04-04 09:22 | Hospitalist Progress Note ---
Date of Service April 04, 2024 Assessment & Plan (1) Complicated urinary tract infection: Plan Renetta Beck is a 73y/o F with PMHx significant for dyslipidemia, HTN, DM type II, interstitial pulmonary disease, ZAHRA on CPAP, asthma, GERD, depression/anxiety, nephrolithiasis and mitral valve prolapse who presented to the ED on 04/02/2024 with generalized weakness and was found to have a UTI. Patient was previously admitted under our service 02/21/2024-02/25/2024. She was managed for urinary tract infection and obstructive uropathy requiring left ureteral stent placement. She was discharged home on oral antibiotics at that time. Patient states she completed her oral antibiotic course as prescribed and has since then gradually developed urinary symptoms which prompted her to come in to the hospital. Patient was actually scheduled for cystoscopy, ureteral nephroscopy, extraction and laser destruction of stone with possible exchange of left ureteral stent on 04/03/2024. Complicated UTI, Nephrolithiasis: UA infected, no evidence of sepsis on admission. Admitting CTAP --> Interval placement of left ureteral stent with resolution of left hydronephrosis, few nonobstructing left renal calculi. Blood culture NGTD. Urine culture growing E. coli with multiple resistance. Spoke with Dr. Mcgee via TT --> He recommended continuing IV ceftriaxone for a full 5-day course (currently on day #3) rather than transitioning her to oral ABX. Continue Flomax, probiotic. Dose of po Diflucan given at patient's request. Also scheduled her Pyridium TID for now per her request. Palpitations, History of Mitral Valve Prolapse: Patient has been c/o some palpitations and had presented with some mild SOB (which has since resolved). Currently asymptomatic. She follows with Dr. Frye as an outpatient. CXR unremarkable today. Echo from 02/22/2024 reviewed --> normal LV size and systolic function, EF of 55 to 60%, no LVH nor regional wall motion abnormalities. Mitral valve was noted to be grossly normal at that time. Repeat echo done today --> normal LV systolic function, no LVH, LVEF of 55 to 60% and mild tricuspid regurgitation. There was trace mitral regurgitation but again no evidence of mitral valve prolapse. Patient made aware. DM Type II: Hold home metformin, SSI while inpatient. Hgb A1c was 6.6% last admission. BSG checks ACHS. Other Chronic Medical Conditions: HTN, HLD, depression/anxiety, asthma --> Can continue home medications for these specific conditions. DVT Prophylaxis: SQ Heparin Code Status: FULL CODE PCP: Marie Gould MD Disposition: Admitted in Med/Surg - Most likely can be discharged home on Sunday (04/06/2024) after completing IV ABX therapy if she remains stable. Will need PCP f/u appointment. Patient seen in collaboration with Dr. Arriola. Please see addendum. I spent a total of 45 minutes coordinating, documenting, and providing care for this patient excluding time spent in the performance of separately billed services. This included personally reviewing all current laboratories and imaging studies, medical reconciliation, outpatient chart review and discussion with specialists. This chart was completed in part utilizing Speech Voice Recognition Software. Grammatical errors, random word insertions, pronoun errors, and incomplete sentences are an occasional consequence of this system due to software limitations, ambient noise, and hardware issues. Any formal questions or concerns about the content, text, or information contained within the body of this dictation should be directly addressed to the provider for clarification. Admission and Anticipated Discharge Date Admission Date: April 02, 2024 Supervising Physician Co-Signing Physician Notes Patient seen and examined independently. Patient seen and examined at bedside. Comfortable; not in distress. Denies fever, chills, chest pain, shortness of breath, abdominal pain or urinary symptoms. No significant overnight events Continue IV antibiotics I have reviewed the advanced practitioner's documentation, and I agree with, and take responsibility for the plan of care I spent a total of 20 minutes coordinating, documenting, and providing care for this patient excluding time spent in the performance of separately billed services. All of the aforementioned completed while collaborating with the assigned advanced practitioner for a full treatment plan Subjective No acute events overnight. Patient feeling better overall but does report that she feels she is developing a vaginal yeast infection. Denies any abdominal/suprapubic/flank pain. She is voiding spontaneously. Does note that her urine seemed a little bit darker earlier this morning. No dysuria. No fevers or chills. She was having some palpitations on admission however that has since subsided. She reports that she has a history of symptomatic mitral valve prolapse and occasionally has palpitations. Denies any chest pain or shortness of breath however she was previously complaining of some shortness of breath on admission. She is requesting Azo. Review of Systems Review of Systems: At least ten systems reviewed and negative, except as noted in the subjective section. Physical Exam Physical Exam: General: WD/WN, vitals as above, NAD, sitting up in bed, pleasant, conversing appropriately. A+Ox3, euthymic affect. HEENT: Normocephalic, atraumatic. Conjunctivae normal, anicteric sclerae. External ear and nose normal, oropharynx normal. Respiratory: Normal respiratory effort, lungs clear to auscultation, no wheeze, rales, rhonchi. No accessory muscle use. Cardiovascular: Regular rate, rhythm, no murmur, normal peripheral pulses, no BLE edema. Vessels: No JVD. Abdomen/GI: Normal bowel sounds, soft, nontender, no hepatosplenomegaly. Extremities/Musculoskeletal: No cyanosis or clubbing, extremities motor strength intact, moves all extremities. Neurologic: No focal deficits, CN's II-XI not formally tested but appear grossly intact bilaterally. Skin: No rashes, normal color, warm/dry. Results & Data Results & Data Vital Signs (Past 12 Hours) Vital Signs Temp Pulse Pulse Resp BP Pulse Ox O2 Del Method 04/04/24 08:22 36.6 C 71 16 114/70 95 Room Air 04/04/24 07:25 55 L 16 98 Room Air 04/04/24 00:58 Nasal Cannula, CPAP 04/03/24 23:57 57 L 18 98 Nasal Cannula 04/03/24 22:20 96 H 26 H 97 O2 Flow Rate FiO2 04/04/24 08:22 04/04/24 07:25 04/04/24 00:58 04/03/24 23:57 2 04/03/24 22:20 21 Laboratory Results Short CBC 04/04/24 Range/Units 06:21 WBC 5.30 (4.8-10.8) K/ul Hgb 11.6 L (12.0-16.0) g/dl Hct 35.7 L (37.0-47.0) % Plt Count 255 (130-400) K/uL BMP 04/04/24 06:21 Sodium 137 Potassium 4.2 Chloride 103 Carbon Dioxide 29 BUN 19 Creatinine 0.66 Glucose 125 H Calcium 9.6
[2024-04-04] MEDS: FLUCONAZOLE 50 MG TAB PO ONE (12:55)
[2024-04-04] MEDS: PHENAZOPYRIDINE HCL 100 MG TAB PO SCH (12:55)
--- NOTE | 2024-04-04 14:20 | XCELERA ---
[id number] \\[id number]
--- NOTE | 2024-04-04 14:53 | XRay Report ---
XR chest 2V PA/lateral HISTORY: 73 years-old Female Shortness of breath acute shortness of breath COMPARISON: 03/17/2024 TECHNIQUE: PA and lateral views of the chest FINDINGS: Cardiac mediastinal silhouette unchanged. No pneumothorax, pleural effusion, airspace consolidation o r pulmonary edema. Spondylotic spurring of the spine. IMPRESSION: No acute process. ACT 112: Negative or not required by law. The above report was generated using voice recognition software. It may contain grammatical, syntax o r spelling errors. Electronically signed by: Mina Song M.D. 04/04/2024 2:52 PM
[2024-04-05 06:01] LABS: Hematocrit (blood only) 34.8 % (37.0-47.0); Hemoglobin 11.3 g/dl (12.0-16.0); Mean Corpuscular Hemoglobin 29.4 pg (25.0-34.0); Mean Corpuscular Hgb Conc 32.5 g/dL (32.0-36.0); Mean Corpuscular Volume 90.4 fL (80.0-100.0); Mean Platelet Volume 9.8 fL (9.4-12.4); Platelet Count 253 K/uL (130-400); RDW Coefficient of Variation 13.6 % (11.5-14.5); RDW Standard Deviation 44.7 fL (36.4-46.3); Red Blood Count 3.85 M/uL (4.20-5.40)
[2024-04-05 06:18] LABS: Calcium 9.8 mg/dl (8.6-10.3); Creatinine Clr Calc Pharmacy 68.1 ml/min; Magnesium 2.1 mg/dl (1.7-2.4); Phosphorus 4.6 mg/dl (2.5-4.9); Potassium 4.9 mmol/L (3.5-5.1)
--- NOTE | 2024-04-05 08:01 | Hospitalist Progress Note ---
Date of Service April 05, 2024 Assessment & Plan (1) Complicated urinary tract infection: Plan Renetta Beck is a 73y/o F with PMHx significant for dyslipidemia, HTN, DM type II, interstitial pulmonary disease, ZAHRA on CPAP, asthma, GERD, depression/anxiety, nephrolithiasis and mitral valve prolapse who presented to the ED on 04/02/2024 with generalized weakness and was found to have a UTI. Patient was previously admitted under our service 02/21/2024-02/25/2024. She was managed for urinary tract infection and obstructive uropathy requiring left ureteral stent placement. She was discharged home on oral antibiotics at that time. Patient states she completed her oral antibiotic course as prescribed and has since then gradually developed urinary symptoms which prompted her to come in to the hospital. Patient was actually scheduled for cystoscopy, ureteral nephroscopy, extraction and laser destruction of stone with possible exchange of left ureteral stent on 04/03/2024. Complicated UTI, Nephrolithiasis: UA infected, no evidence of sepsis on admission. Admitting CTAP --> Interval placement of left ureteral stent with resolution of left hydronephrosis, few nonobstructing left renal calculi. Final blood culture negative. Urine culture growing E. coli with multiple resistance. Discussed with pharmacy; Aline Chavira, who recommended continuing IV ceftriaxone for a full 5-day course (currently on day #4) and transitioning to oral cefdinir for a total of 7 days oral antibiotics instead of 3 upon discharge. Ideally patient would be on Bactrim however has sulfa listed as an allergy which confirmed that prior administration resulted in her developing a generalized rash with shortness of breath. Avoid sulfa drugs for now for treatment Continue Flomax, probiotic. Dose of po Diflucan given at patient's request. Also scheduled her Pyridium TID for now per her request. Overarching goal is to proceed with urology intervention as outpatient however requires infection to be cleared, which could be proving to be difficult given resistance. SOB: Resolved Patient was Experiencing some shortness of breath yesterday. Chest x-ray negative Known mitral valve prolapse Patient wore CPAP last night and shortness of breath has improved Given immobilization and recurrent infection; chest CTA obtained and negative for PE Palpitations, History of Mitral Valve Prolapse: Patient has been c/o some palpitations and had presented with some mild SOB (which has since resolved). Currently asymptomatic. She follows with Dr. Frye as an outpatient. CXR unremarkable today. Echo from 02/22/2024 reviewed --> normal LV size and systolic function, EF of 55 to 60%, no LVH nor regional wall motion abnormalities. Mitral valve was noted to be grossly normal at that time. Repeat echo done today --> normal LV systolic function, no LVH, LVEF of 55 to 60% and mild tricuspid regurgitation. There was trace mitral regurgitation but again no evidence of mitral valve prolapse. Patient made aware. DM Type II: Hold home metformin, SSI while inpatient. Hgb A1c was 6.6% last admission. BSG checks ACHS; resume upon discharge. Other Chronic Medical Conditions: HTN, HLD, depression/anxiety, asthma --> Can continue home medications for these specific conditions. DVT Prophylaxis: SQ Heparin Code Status: FULL CODE PCP: Marie Gould MD Disposition: Admitted in Med/Surg - Most likely can be discharged home on Sunday (04/06/2024) after completing IV ABX therapy if she remains stable. Will need PCP f/u appointment. I spent a total of 46 minutes coordinating, documenting, and providing care for this patient excluding time spent in the performance of separately billed services. This included personally reviewing all current laboratories and imaging studies, medical reconciliation, outpatient chart review and discussion with specialists. This chart was completed in part utilizing Speech Voice Recognition Software. Grammatical errors, random word insertions, pronoun errors, and incomplete sentences are an occasional consequence of this system due to software limitations, ambient noise, and hardware issues. Any formal questions or concerns about the content, text, or information contained within the body of this dictation should be directly addressed to the provider for clarification. Admission and Anticipated Discharge Date Admission Date: April 02, 2024 Supervising Physician Co-Signing Physician Notes Chart reviewed; discussed with above provider. CTA chest done to evaluate for PE due to patient's report of shortness of breath; no infiltrate/PE found Continue IV antibiotics for E. coli infection Possible DC in a.m. depending on clinical improvement I have reviewed the advanced practitioner's documentation, and I agree with, and take responsibility for the plan of care Subjective Patient sitting in hospital bed in no apparent distress. She is able to talk in complete sentences without dyspnea. Shortness of breath improved with CPAP overnight. Pt denies Fever, chills, SOB, chest pain, palpitations, abdominal pain or tenderness. Hematuria, hematochezia suprapubic or flank pain. She continues to void spontaneously. She did state that she has some intermittent palpitations and she felt to overnight. See below for A/P Review of Systems Review of Systems: Neuro: (-) Falls, trauma, slurred speech HEENT: (-) MARTINEZ, dizziness, dysphagia, visual or auditory changes CV: (-) CP, palpitations, swelling Resp: (-) SOB GI: (-) appetite changes, N/V/D, bowel changes : (-) urinary changes Skin: (-) rashes Psych: (-) anxiety, depression Physical Exam Physical Exam: Neuro: AAOx4, PERRLA, no aphagia, memory changes, CNII-XII grossly intact HEENT: head normocephalic, moist mucus membranes CV: S1/S2, (-) M/G/R, (-) edema, cap refill < 3 seconds Resp: Lungs CTA in all montalvo. On RA GI: Abdomen S/NT/ND, mild LLQ tenderness, Ax4 bowel sounds, (-) CVA tenderness Musculoskeletal: 5/5 B/L UE strength, 5/5 B/L LE strength. No gait disturbance Skin: (-) rashes , (-) erythema. Psych: euthymic mood Results & Data Results & Data Vital Signs (Past 12 Hours) Vital Signs Temp Pulse Pulse Resp BP Pulse Ox O2 Del Method 04/05/24 07:46 Room Air 04/05/24 07:14 60 15 98 Nasal Cannula 04/05/24 07:04 36.8 C 61 16 106/67 99 Room Air 04/04/24 21:15 36.8 C 72 18 120/81 98 Room Air O2 Flow Rate 04/05/24 07:46 04/05/24 07:14 3 04/05/24 07:04 04/04/24 21:15 Laboratory Results Short CBC 04/05/24 Range/Units 05:27 WBC 5.70 (4.8-10.8) K/ul Hgb 11.3 L (12.0-16.0) g/dl Hct 34.8 L (37.0-47.0) % Plt Count 253 (130-400) K/uL BMP 04/05/24 05:27 Sodium 137 Potassium 4.9 Chloride 105 Carbon Dioxide 28 BUN 27 H Creatinine 0.71 Glucose 116 H Calcium 9.8
[2024-04-05] MEDS: OPTIRAY 320 125ml IV ONE (11:11)
--- NOTE | 2024-04-05 11:27 | CT Scan Report ---
CT ANGIOGRAPHY OF THE CHEST, PULMONARY EMBOLUS PROTOCOL CLINICAL HISTORY: Evaluate for pulmonary embolus. COMPARISON STUDY: Chest radiograph April 04, 2024. TECHNIQUE: Following IV administration of 119 mL of Optiray, helical axial images of the chest were o btained utilizing the pulmonary embolus protocol. Maximal intensity projections and sagittal and cor onal reformats were viewed on an independent 3D workstation. IV contrast was administered without co mplication. Automated exposure control was utilized for the study. A dose lowering technique was ut ilized adhering to the principles of ALARA. CT DOSE: 430.31 mGy.cm FINDINGS: No pulmonary emboli are identified. There is no thoracic aortic dissection. No pericardial effusion is present. No enlarged axillary, mediastinal or hilar lymph nodes are present. There is no consolidation. No pneumothorax or pleural effusion is present. Visualized portions of the upper abdo men are unremarkable. Several calcified nodules within the lungs are benign. IMPRESSION: 1. No pulmonary emboli identified. 2. No acute intrathoracic findings. ACT 112: Negative or not required by law. Electronically signed by: Glynn Ford M.D. 04/05/2024 11:25 AM
[2024-04-06 06:05] LABS: Hemoglobin 11.1 g/dl (12.0-16.0); Mean Corpuscular Hemoglobin 29.1 pg (25.0-34.0); Mean Corpuscular Hgb Conc 32.6 g/dL (32.0-36.0); Mean Platelet Volume 9.8 fL (9.4-12.4); Platelet Count 271 K/uL (130-400); RDW Coefficient of Variation 13.4 % (11.5-14.5); RDW Standard Deviation 43.8 fL (36.4-46.3); Red Blood Count 3.82 M/uL (4.20-5.40); White Blood Count 5.16 K/ul (4.8-10.8)
[2024-04-06 06:26] LABS: Anion Gap 6 (3-11); BUN Creatinine Ratio 41.8 (10-20); Blood Urea Nitrogen 28 mg/dl (6-23); Calcium 9.6 mg/dl (8.6-10.3); Carbon Dioxide 28 mmol/L (21-32); Chloride 102 mmol/L (98-107); Creatinine Clr Calc Pharmacy 72.2 ml/min; Glucose 95 mg/dl (70-99(Fasting)); Sodium 136 mmol/L (136-145)
[2024-04-06 07:27] VITALS: O2SAT 96
--- NOTE | 2024-04-06 11:12 | Discharge Summary ---
Date of Service April 06, 2024 Admission HPI Per Admitting Provider Patient is a 73-year-old female with history of hypertension, hyperlipidemia, nephrolithiasis, diabetes mellitus type 2, suspected COPD, appendiceal tumor, mitral valve prolapse and other medical problems who was recently hospitalized in January and managed for urinary tract infection, obstructive uropathy requiring left ureteral stent placement and discharged on oral antibiotics to complete the course presents with history of generalized weakness, poor oral intake, increased urinary frequency, chills, intermittent shortness of breath. Patient states completing her oral antibiotic course as prescribed and since the completion patient gradually developed urinary symptoms which prompted her to come to the hospital. Patient was scheduled for cystoscopy, ureteral nephroscopy, extraction and laser destruction of stone with possible exchange of left ureteral stent tomorrow. Denies any history of chest pain, dizziness, cough, fever, fall, headache, nausea, vomiting, abdominal pain, blood in stools, diarrhea, dysuria, hematuria. Admission Exam Per Admitting Provider Physical Exam: Vitals signs as noted above General Appearance:Thin, Frail, no apparent distress Head: normocephalic, Atraumatic Eyes: normal inspection, EOMI Neck: supple, Trachea midline Respiratory/Chest: Normal breath sounds, CTA, No accessory muscle use Cardiovascular: S1, S2, No murmur Abdomen/GI:Soft, Non tender, Bowel sounds present Extremities/Musculoskeletal:normal inspection, no edema Neurologic/Psych:AAOX3, grossly no focal neurological deficits Skin: normal color, warm Principal Diagnosis Urinary tract infection Discharge Exam Neuro: AAOx4, PERRLA, no aphagia, memory changes, CNII-XII grossly intact HEENT: head normocephalic, moist mucus membranes CV: S1/S2, (-) M/G/R, (-) edema, cap refill < 3 seconds Resp: Lungs CTA in all montalvo. On RA GI: Abdomen S/NT/ND, Ax4 bowel sounds, (-) CVA tenderness Musculoskeletal: 5/5 B/L UE strength, 5/5 B/L LE strength. No gait disturbance Skin: (-) rashes , (-) erythema. Psych: euthymic mood Discharge Data Allergies Allergy/AdvReac Type Severity Reaction Status Date / Time Sulfa (Sulfonamide Allergy Intermediate SOB, Verified 03/21/24 10:24 Antibiotics) Systemic rash morphine AdvReac Intermediate Tachycardia Verified 03/21/24 10:24 /Fever/Chil ls/Vomiting SULFATE WITH CHEAP FLIP FLOPS Allergy Unknown I break out Uncoded 03/21/24 10:24 Consultations 04/02/24 18:44 Consult Urology Routine 04/02/24 18:49 ED Decision to Admit Stat Ordered Studies 04/02/24 15:44 CT Abd and Pelvis [CT abd pelvis IV con only] Stat 04/05/24 10:43 CT angio chest PE protocol Routine Hospital Course (1) Complicated urinary tract infection: Hue Beck is a 73y/o F with PMHx significant for dyslipidemia, HTN, DM type II, interstitial pulmonary disease, ZAHRA on CPAP, asthma, GERD, depression/anxiety, nephrolithiasis and mitral valve prolapse who presented to the ED on 04/02/2024 with generalized weakness and was found to have a UTI. Patient was previously admitted under our service 02/21/2024-02/25/2024. She was managed for urinary tract infection and obstructive uropathy requiring left ureteral stent placement. She was discharged home on oral antibiotics at that time. Patient states she completed her oral antibiotic course as prescribed and has since then gradually developed urinary symptoms which prompted her to come in to the hospital. Patient was actually scheduled for cystoscopy, ureteral nephroscopy, extraction and laser destruction of stone with possible exchange of left ureteral stent on 04/03/2024. On admission her urine was infected but no evidence of sepsis. And admitting CTAP revealed interval placement of the left ureteral stent with resolution of left hydronephrosis and a few nonobstructing left renal calculi. Her final blood culture was negative. She does have a recurrent E. coli urinary tract infection resulting with multiple resistance on culture. She completed a full 5-day course of ceftriaxone IV while inpatient and due to her recurrent infections we will transition to an oral cefdinir for total of 7 days post discharge. Ideally this patient would benefit from Bactrim however has a sulfa allergy listed which leads to generalized rash/shortness of breath. Will avoid sulfa drugs for now for treatment. Patient with known MVP and was experiencing some shortness of breath; she wears a CPAP at night which does help improve her shortness of breath. Patient follows with Dr. Frye as an outpatient for management of her MVP. Echo from 02/22/2024 reviewed indicating normal left ventricular function and size, EF 55 to 60% with no LVH or wall motion abnormalities. There was a repeat echo during this admission which showed normal LV systolic function, no LVH, LVEF 55 to 60% and mild TR. Trace mitral regurgitation. With hopeful resolution of her urinary tract infection would recommend repeat culture and further evaluation with urology to determine treatment options moving forward. This chart was completed in part utilizing Speech Voice Recognition Software. Grammatical errors, random word insertions, pronoun errors, and incomplete sentences are an occasional consequence of this system due to software limitations, ambient noise, and hardware issues. Any formal questions or concerns about the content, text, or information contained within the body of this dictation should be directly addressed to the provider for clarification. Total Time Total Time Spent Total Time Spent (In Minutes): I spent a total of 46 minutes coordinating, documenting, and providing care for this patient excluding time spent in the performance of separately billed services. This included personally reviewing all current laboratories and imaging studies, medical reconciliation, outpatient chart review and discussion with specialists. Discharge Plan Discharge Items Patient Disposition: Home - Self-Care Reason For Visit: COMPLICATED UTI Discharge Diagnosis: Complicated UTI Condition on Discharge: Good Activity: Resume your previous activity Non-emergency contact: Primary Care Provider Call non-emergency contact if: you have any medication questions, your symptoms worsen, your pain is unusual for you and your temperature is above 101 Follow-up/Referrals: Marie Gould MD [Primary Care Provider] - 04/11/24 8:40 am (Date & Time 04/11/2024 8:40 AM Provider Huong Gauthier DO Department General Internal Medicine [facility], [place] ) Diet: Heart Healthy Addtl Attending Provider Instructions: Renetta - You were admitted on 04/02/24 for generalized weakness and you are found to have a UTI (urinary tract infection). Previously, you were admitted here under the [facility] service from 02/21/24 to 02/25/24 for a urinary tract infection with obstructive uropathy requiring a left ureteral stent placement. You were discharged home on oral antibiotics at that time which you completed. As you know you are previously scheduled for cystoscopy, ureteral nephroscopy, extraction and laser destruction of stone with possible exchange of left ureteral stent which was originally planned on 04/03/2024. Upon admission, a CT scan of the abdomen and pelvis was performed confirming adequate placement of the left ureteral stent with resolution of the left hydronephrosis along with a few nonobstructing left renal calculi (kidney stones). Blood cultures were obtained negative for growth of bacteria. While you were here, you started to receive some shortness of breath chest x-ray was obtained and negative for acute cardio or pulmonary disease process. Since you are wearing CPAP overnight we did obtain a chest CT scan which was negative for pulmonary embolism. A urine culture was obtained and results indicated recurrent E. coli infection with numerous resistance. He was started on IV ceftriaxone and completed a full 5-day course. Due to your recurrent urinary tract infections upon discharge today we will transition you to an oral antibiotic called cefdinir for UTI take for an additional 7 days which you are instructed to start on 04/07 taking them twice a day at 9 AM and 9 PM. Ideally we would like for you to be on a medication called Bactrim however due to your allergies to sulfa medications we would like to avoid sulfa drugs for this treatment. Continue taking Flomax and a probiotic while you are taking antibiotics. We would recommend taking a probiotic for 1 week after completion of your antibiotics. Per your request you can continue taking Pyridium 3 times per day. There is no added value in obtaining a repeat urine culture until after your antibiotics mistry ve been completed for which further conversation can be held regarding Urology follow up to discuss further treatment options. It is recommended that you follow-up with your PCP which an appointment has been scheduled for Wednesday 04/11 at 8:40 AM. Should this time not work for you and your family logistically please feel free to contact them and adjust this time/date. MEDICATION CHANGES: 1. START taking Cefdinir 300 mg by mouth twice daily on Sunday04/07/24 and completing after your second dose on Friday 04/13. 2. Continue taking a probiotic one week after completion of your Cefdinir; take a probiotic until Sunday04/20/24 3. Continue taking Pyridium three times daily until you follow up with your PCP. 4. Continue taking Flomax (tamsulosin) 0.4 mg by mouth daily until your follow up with your PCP. RECOMMENDATIONS FOR FOLLOW-UP: It is recommended that you follow-up with your PCP which an appointment has been scheduled as outlined below.Should this time not work for you and your family logistically please feel free to contact them and adjust this time/date. 04/11/2024 8:40 AM Provider Huong Gauthier DO Department General Internal Medicine [address] There is no added value in obtaining a repeat urine culture until after your antibiotics have been completed for which further conversation can be held regarding Urology follow up to discuss further treatment options. OTHER INSTRUCTIONS: Seek medical attention if you have: * temperature above 101 * chest pain or trouble breathing * abdominal pain, nausea, vomiting * diarrhea, dark stools or bloody stools * any unanswered questions or concerns Call 911 if symptoms are severe. Please take good care of yourself. It has been a pleasure taking care of you. Please take care of yourself. If you have any questions regarding your recent hospitalization please contact [facility] and request stefan Cesiliaist @ [phone]. Pending Studies at Discharge: No Stand-Alone Forms: My [facility], Smoking Cessation Medications and DC Order Prescriptions: New phenazopyridine [Pyridium] 100 mg Tablet 100 mg PO TID Qty: 20 0RF cefdinir 300 mg capsule 300 mg PO BID Qty: 14 0RF Continued albuterol sulfate 90 mcg/actuation HFA aerosol inhaler 2 inh inhalation Q6H Qty: 8.5 5RF albuterol sulfate 2.5 mg /3 mL (0.083 %) solution for nebulization 2.5 mg INHALATION Q4 PRN (Reason: cough/sob) Qty: 180 11RF montelukast 10 mg tablet 10 mg PO QAM Qty: 90 3RF Align 4 mg capsule 4 mg PO HS famotidine 20 mg tablet 20 mg PO DAILY PRN (Reason: Heartburn) nitroglycerin 0.4 mg tablet, sublingual 0.4 mg sublingual UD PRN (Reason: Angina) Qty: 30 3RF Patient Comments: LAST USE 2014 OR 2015 tamsulosin [Flomax] 0.4 mg capsule 0.4 mg PO DAILY Qty: 30 0RF atorvastatin 20 mg Tablet 20 mg PO HS citalopram 40 mg Tablet 40 mg PO QAM trazodone 50 mg Tablet 12.5 mg PO HS PRN (Reason: Insomnia) amlodipine 5 mg Tablet 2.5 mg PO QAM lisinopril 2.5 mg Tablet 2.5 mg PO HS prednisolone acetate [Pred Forte] 1 % drops,suspension 1 drp OPB QPM Cholestyramine Light 4 gram Powder 4 g PO BID Patient Comments: NOT ALWAYS / HAVEN'T BEEN TAKING IN MORE THAN A MONTH Rx Instructions: administer w/meal; avoid other meds within 1hr before or 4-6hr after dose metformin 500 mg tablet 500 mg PO BID Discontinued Qvar RediHaler 80 mcg/actuation HFA aerosol breath activated 2 inh INH BID Qty: 10.6 11RF Metamucil (sugar) Powder 1 tsp PO UD PRN (Reason: BOWEL REGULARITY ) simethicone [Gas Relief (simethicone)] 80 mg Tablet,Chewable 80 mg PO Q8H PRN (Reason: abdominal distention) Qty: 60 0RF Discharge Orders: Discharge Order (Routine); Ordered 04/06/24 Ordered By: Denae Mercado Admission Data Admit Date/Time: 04/02/24 18:46 Attending Provider: Mike Arriola Admit Provider: Sergio Carroll Primary Care Provider: Marie Gould Other Providers: Quirino Anne; Verena Rogel; Corwin Lynch; Brenda Callahan; Niyah Marques; Manoj Abdi; Dara Noyola; Maciej Farley; Nell Irizarry; Sal Aly; Sergio Carroll Supervising Physician Co-Signing Physician Notes Patient seen and examined independently. She is lying on the bed comfortably; she denies any significant dysuria. No episode of fever or chills. Denies any shortness of breath. She is comfortable with the plan of going home on oral antibiotics. I have reviewed the advanced practitioner's documentation, and I agree with, and take responsibility for the plan of care I spent a total of 20 minutes coordinating, documenting, and providing care for this patient excluding time spent in the performance of separately billed services. All of the aforementioned completed while collaborating with the assigned advanced practitioner for a full treatment plan
[2024-04-06 12:49] VITALS: RESP 16
[2024-04-06 15:09] VITALS: BP 108/61; TEMP 97.9
[2024-04-06 15:20] VITALS: PULSE 53
== END 2024-04-06 17:23 | disposition home or self-care (01) | DRG 690 ==
LOC: ED 13:19 → SUATTDRO 18:46 → 3N 18:46